=== PATIENT | female | born 1955 | race Caucasian/White ===

== ENCOUNTER → 2018-07-05 10:02 | Outpatient (CLI) | payer OTHER, SELFPAY | PROVIDERS: Visit Provider Obstetrics & Gynecology | DX: Z12.31 Encounter for screening mammogram for malignant neoplasm of breast (principal) | CPT/HCPCS: 77063; 77067 ==

== ENCOUNTER 2018-10-22 20:42 | Emergency (ER) | payer OTHER, SELFPAY ==
[2018-10-22 20:43] VITALS: BP 158/110; PULSE 87; RESP 18; TEMP 35.8; O2SAT 97; BMI 21.9
--- NOTE | 2018-10-22 20:45 | EKG12_ITS ---
Test Reason : CP Blood Pressure : / mmHG Vent. Rate : 079 BPM Atrial Rate : 079 BPM P-R Int : 188 ms QRS Dur : 098 ms QT Int : 402 ms P-R-T Axes : 077 086 077 degrees QTc Int : 460 ms Normal sinus rhythm Normal ECG Confirmed by AGNES ESPINOZA, FARHAN ([id number]), content editor FESTUS OVALLE ([id number]) on 10/24/2018 9:49:17 AM Referred By: ANNIE Confirmed By:FARHAN ALARCON MD
--- NOTE | 2018-10-22 21:10 | RAD_ITS ---
STUDY: X-RAY CHEST REASON FOR EXAM: Female, 62 years old. Chest pain TECHNIQUE: Single AP portable view of the chest. COMPARISON: None. FINDINGS: There are monitoring devices. The lungs are hyperexpanded. No focal infiltrate. There is no demonstrated pleural abnormality. There is mild cardiac enlargement. Normal mediastinum and jaime. Normal visualized pulmonary arteries. Normal visualized aortic arch and descending thoracic aorta. Mild scoliotic curvature of the spine. Normal visualized ribs, clavicles, and shoulders. There is no demonstrated abnormality of the visualized soft tissue structures of the upper abdomen. RAD/Chest 1 View (Portable) IMPRESSION: Degenerative changes, as described above. No demonstrated acute cardiopulmonary process. Electronically Signed: Bright Kenney MD at 22:12 EST , Service support ,
[2018-10-22 21:13] LABS: Absolute Lymphocyte Count 1.61 X10^3/ul (0.83-4.51); Absolute Neutrophil Count 3.7 X10^3/uL (2.0-7.7); Basophil# 0.03 X10^3/uL; Basophil% 0.5 % (0-1); Eosinophil# 0.08 X10^3/uL; Eosinophils% 1.4 % (0-5); Hematocrit 44.3 % (37-47); Hemoglobin 13.8 g/dl (12.0-15.0); Lymphocyte # 1.61 X10^3/ul (4.0); Lymphocyte % 28.3 % (19-41); Mean Corp Hgb Conc 31.2 g/gl (32-36); Mean Corpuscular Hgb 29.6 pg (27.0-32.0); Mean Corpuscular Volume 95.1 fL (81-99); Monocyte% 5.3 % (0-10); Neutrophil # 3.66 X10^3/uL (2.7-7.7); Neutrophil % 64.3 % (47-70); Platelet Count 270 K/mm3 (150-450); RBC Distribution Width SD 48.3 fl (35.1-43.9); Red Blood Count 4.66 M/mm3 (4.2-5.4); White Blood Count 5.7 K/mm3 (4.4-11.0)
[2018-10-22 21:14] LABS: POSITIVE COUNT NO; POSITIVE DIFFERENTIAL NO; POSITIVE MORPHOLOGY NO
[2018-10-22 21:19] LABS: Prothrombin Time (Protime)PT. 13.1 SECONDS (11.7-14.9)
[2018-10-22 21:20] VITALS: BP 152/92; PULSE 77; RESP 14; O2SAT 98
[2018-10-22 21:27] LABS: Anion Gap 8 (5-15); BUN 16 mg/dL (7-18); Calcium,Total 9.2 mg/dL (8.5-10.1); Chloride 106 mmol/L (98-107); Creatinine, Serum 0.84 mg/dL (0.55-1.02); EST Glomerular Filtration Rate 73 mL/min (>60); Est Glom Filt Rate - Afr Amer 88 mL/min (>60); Estimated Creatinine Clearance 65.01 ml/min; Glucose 114 mg/dL (74-106); Sodium Level 144 mmol/L (136-145)
[2018-10-22 22:26] VITALS: BP 140/93; PULSE 78; RESP 13; O2SAT 96
--- NOTE | 2018-10-22 22:46 | ED.DCSUM_ITS ---
- ER Visit Summary Date of Service: 10/22/18 Chief Complaint: Chest pain. History of Present Illness: The patient is a 62 F with no primary care physician. She reports that she has chest pain that began approximately 8-1/2 hours ago while she was undergoing light activity. She reports is a constant waxing and waning pain. She describes it as a burning, pressure. 4-10 at worst and 2 out of 10 currently. Is worsened by nothing including exertion, movement, breathing, or eating. Is also relieved by nothing. She reports is been nauseated and belching and had indigestion. She denies any vomiting, diaphoresis, shortness of breath. There is no radiation of the pain. Physical Examination: Vitals: Stable. Afebrile. General: Well-nourished and well-developed. Head: Normocephalic atraumatic. Neck: Supple, no lymphadenopathy. No JVD. Nontender. Cardiovascular: Regular rate and rhythm. No murmurs. Respiratory: No respiratory distress. Clear to auscultation bilaterally. Abdominal: Soft, nontender, nondistended, normal bowel sounds. No guarding, rebound, or peritoneal signs. Back: Nontender. Extremities: Nontender, no edema. Skin: Normal color, no rash. Neurologic: Alert and oriented ?3. Cranial nerves II through XII are intact. Normal strength and sensation. Psych: Normal affect. Test Results: EKG is sinus at [address] changes. There is no old EKG for comparison. Troponin is negative. INR is 1.0. Chem-7 is more for glucose 114. CBC is normal. Chest x-ray is normal. Emergency Department Course and Treatment: Patient is resting comfortably. I discussed that the possibility that this that could still be cardiac in etiology. Although it is less likely given 8 hours of constant pain with no EKG changes or change in her enzymes. Patient would like to go home. Treatment Plan: Patient be discharged instructions from Dr. Alcantara as soon as possible. Return to the emergency department for any worsening symptoms. Disposition: To home in improved and stable condition. Impression: 1. Atypical chest pain. 2. ROMAN score of 0. This note was generated with [employer] software. It may contain incorrect words, spelling, and punctuation that were not noted in review of the chart prior to signing ED Disposition - Plan for ED Patient: Disposition: Home or Assisted Living Chief Complaint: Chest Pain Instructions: ED Chest Pain Atypical Unkn Cause Prescriptions: Ranitidine [Zantac] 300 mg PO DAILY #30 tablet Referrals: Kelsey Alcantara MD [STAFF PHYSICIAN] - As soon as possible
[2018-10-22 22:48] VITALS: BP 135/94; PULSE 80; RESP 14; O2SAT 98
[2018-10-22] MEDS: Famotidine 20 MG Tablet 40 MG PO (23:22)
[2018-10-22] MEDS: Mag Hydrox/Al Hydrox/Simeth 30 ML UDC PO (23:22)
[2018-10-22 23:23] VITALS: BP 139/92; PULSE 78; RESP 12; O2SAT 96
--- OUTSIDE RECORDS SUMMARY | 2018-12-08 22:43 | XMS RPT_ITS ---
:1955 Author Organization OHIP Care Team Providers Name Role Phone GUZMAN ALCANTARA Attending Unavailable Primay Care Physicia, No Primary Care Unavailable El Zuniga Attending Unavailable Kriss, Lucila Attending Unavailable Lucila Monterroso Attending Unavailable Lucila Monterroso Referring Unavailable Primay Care Physicia, No Primary Care Unavailable PROBLEMS PROBLEMS DATE TYPE CONDITION / CODE ATTENDING STATUS SOURCE 10/31/2018 Active Unknown / GUZMAN ALCANTARA Active [facility] UNK(Unknown) Main [facility] Repository PROCEDURES PROCEDURES No Procedure Records FoundRESULTS RESULTS PROGRESS Observed: 10/31/2018 Status: COMPLETED Source: [place] 4:08 PM [facility] REPOSITORY HNO ID: [id number] Author: Guzman Alcantara Service: (none) Author Type: Physician Type: Progress Notes Filed: 11/23/2018 6:09 PM Note Text: Patient presents with: ED Follow-up SUBJECTIVE: Didier Delcid is a 62 year old year old lady here today for ER follow up appointment for review of medical conditions. Does not have a PCP. Was seen by SHOE MAKER at [facility] and FP in 2010 (Dr. Segal). Still follows with Dr. Monterroso. Lipids on file--excellent with HDL 80 Stays active. Noted stressors. Dtr this year in [place]. 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 Cholecalciferol, Vitamin D3, (VITAMIN D-3) 2,000 unit cap Take by mouth once daily. conjugated estrogens (PREMARIN) vaginal cream Apply fingertip amount 2-3 x weekly vaginally GLUCOSAMINE/CHONDROITIN SULF A (GLUCOSAMINE-CHONDROITIN ORAL) Take by mouth. MULTIVITAMIN TAB Take one(1) tablet daily. No current facility-administered medications for this visit. FAMILY HISTORY Problem Relation Age of Onset - Osteoporosis Mother - Arthritis Mother - Heart Mother - other (Lung Condition) Mother - other (Liver Cirrhosis) Mother 88 Non alcohol related - Heart Father TX - Hypertension Father - Lipids Father High Cholesterol - Alzheimer's Disease Maternal Grandmother - Heart Maternal Grandmother - Heart Maternal Grandfather TX, massive - Hypertension Paternal Grandmother - Stroke Paternal Grandmother 41 - Cancer Paternal Grandfather Leukemia - Cancer Brother bladder Ca Social History Marital status: Spouse name: Jesus Years of education: 12+ Number of children: 2 Occupational History 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 Patient is alert, oriented times 3, no apparent distress, affect is bright, reactive. Last 5 Encounter BP Readings: Date: BP: 10/31/2018 136/90 06/01/2017 122/78 02/26/2017 126/74 04/28/2016 124/80 03/22/2016 122/80 Last 5 Encounter Wt Readings: Date: Wt: 10/31/2018 60.3 kg (133 lb) 06/01/2017 58.1 kg (128 lb) 02/26/2017 59 kg (130 lb) 04/28/2016 58.5 kg (129 lb) 02/01/2016 59.9 kg (132 lb) PHYSICAL EXAMINATION: Blood pressure 136/90, pulse 100, resp. rate 20, weight 60.3 kg (133 lb), last menstrual period 07/08/2006. General appearance: well appearing, in no acute distress, well-hydrated, well nourished Skin: Skin color, texture, turgor normal. No significant rashes or lesions. Head: Normal Eyes: Anicteric sclera. Pupils are equally round and reactive to light. Extraocular movements are intact. Ears: External ears normal. Canals clear. TM's unremarkable. Nose/Sinuses: negative Oropharynx: Lips, mucosa, and tongue normal. Teeth and gums normal. Oropharynx normal. Neck: Neck supple, no adenopathy; thyroid symmetric, normal size, no bruits. Lungs: Lungs clear to auscultation Chest; pectus excavatum Heart: negative. RRR without murmur, gallop, or rubs. No ectopy. Abdomen: Abdomen soft, non-tender. Bowel sounds normal. No masses, organomegaly Extremities: Extremities normal. No deformities, edema, or skin discoloration. Good capillary refill. Musculoskeletal: grossly normal--noted lipomatous lumps on right lower thigh anteriorly Peripheral pulses: Normal Neuro: Gait normal. Reflexes normal and symmetric. Sensation grossly intact. No gross focal neurological deficits. ASSESSMENT AND PLAN: Encounter Diagnosis ICD-10-CM 1. Atypical chest pain R07.89 Patient here for ER follow up (and wants to establish with me as her PCP). Episode of probably GERD exacerbated by NSAIDs at night without food. Resolved. Hold off on Zantac since resolved without recurrence. Patient wants to follow up with me as her PCP. Plan to see yearly and as needed. Above issues addressed with patient. Patient involved in shared decision making for management of medical issues. History and medications reviewed. Epic updated as needed Refills taken care of and meds adjusted as indicated after reviewed history, exam and labs. Health Maintenance reviewed. Updated record and/or ordered tests as recorded. The majority of the visit was spent counseling and/or coordinating care for the patient. Hgko-de-tcbj time was at least 45 minutes. Guzman Alcantara MD CNOV Observed: 10/31/2018 Status: COMPLETED Source: [place] 3:40 PM [facility] REPOSITORY Office Visit (INTMWS) DIDIER DELCID ([id number]) 1955 F Date Time Provider Department 10/31/18 3:40 PM GUZMAN ALCANTARA INTCHIKA During your visit today, we recorded the following information about you: Pulse Respiration Blood pressure Weight 100/minute 20/minute 130/82 60.3 kg Guzman Alcantara MD 11/23/2018 6:09 PM Signed Patient presents with: ED Follow-up SUBJECTIVE: Didier Delcid is a 62 year old year old lady here today for ER follow up appointment for review of medical conditions. Does not have a PCP. Was seen by SHOE MAKER at [facility] FP in 2010 (Dr. Segal). Still follows with Dr. Monterroso. Lipids on file--excellent with HDL 80 Stays active. Noted stressors. Dtr this year in [place]. Staying active--rides horses PAST MEDICAL HISTORY Diagnosis Date - Internal hemorrhoids without mention of complication - Osteopenia Current Outpatient Prescriptions: Ca-D3-mag sg-unei-xaa-ashanti-bor (CALCIUM 600+D3 PLUS) 600 mg calcium- 800 unit-50 mg tab Take by mouth. Cholecalciferol, Vitamin D3, (VITAMIN D-3) 2,000 unit cap Take by mouth once daily. conjugated estrogens (PREMARIN) vaginal cream Apply fingertip amount 2-3 x weekly vaginally GLUCOSAMINE/CHONDROITIN SULF A (GLUCOSAMINE-CHONDROITIN ORAL) Take by mouth. MULTIVITAMIN TAB Take one(1) tablet daily. No current facility-administered medications for this visit. FAMILY HISTORY Problem Relation Age of Onset - Osteoporosis Mother - Arthritis Mother - Heart Mother - other (Lung Condition) Mother - other (Liver Cirrhosis) Mother 88 Non alcohol related - Heart Father [place] - Hypertension Father - Lipids Father High Cholesterol - Alzheimer's Disease Maternal Grandmother - Heart Maternal Grandmother - Heart Maternal Grandfather [place], massive - Hypertension Paternal Grandmother - Stroke Paternal Grandmother 41 - Cancer Paternal Grandfather Leukemia - Cancer Brother bladder Ca Social History Marital status: Spouse name: Jesus Years of education: 12+ Number of children: 2 Occupational History 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 Patient is alert, oriented times 3, no apparent distress, affect is bright, reactive. Last 5 Encounter BP Readings: Date: BP: 10/31/2018 136/90 06/01/2017 122/78 02/26/2017 126/74 04/28/2016 124/80 03/22/2016 122/80 Last 5 Encounter Wt Readings: Date: Wt: 10/31/2018 60.3 kg (133 lb) 06/01/2017 58.1 kg (128 lb) 02/26/2017 59 kg (130 lb) 04/28/2016 58.5 kg (129 lb) 02/01/2016 59.9 kg (132 lb) PHYSICAL EXAMINATION: Blood pressure 136/90, pulse 100, resp. rate 20, weight 60.3 kg (133 lb), last menstrual period 07/08/2006. General appearance: well appearing, in no acute distress, well-hydrated, well nourished Skin: Skin color, texture, turgor normal. No significant rashes or lesions. Head: Normal Eyes: Anicteric sclera. Pupils are equally round and reactive to light. Extraocular movements are intact. Ears: External ears normal. Canals clear. TM's unremarkable. Nose/Sinuses: negative Oropharynx: Lips, mucosa, and tongue normal. Teeth and gums normal. Oropharynx normal. Neck: Neck supple, no adenopathy; thyroid symmetric, normal size, no bruits. Lungs: Lungs clear to auscultation Chest; pectus excavatum Heart: negative. RRR without murmur, gallop, or rubs. No ectopy. Abdomen: Abdomen soft, non-tender. Bowel sounds normal. No masses, organomegaly Extremities: Extremities normal. No deformities, edema, or skin discoloration. Good capillary refill. Musculoskeletal: grossly normal--noted lipomatous lumps on right lower thigh anteriorly Peripheral pulses: Normal Neuro: Gait normal. Reflexes normal and symmetric. Sensation grossly intact. No gross focal neurological deficits. ASSESSMENT AND PLAN: Encounter Diagnosis ICD-10-CM 1. Atypical chest pain R07.89 Patient here for ER follow up (and wants to establish with me as her PCP). Episode of probably GERD exacerbated by NSAIDs at night without food. Resolved. Hold off on Zantac since resolved without recurrence. Patient wants to follow up with me as her PCP. Plan to see yearly and as needed. Above issues addressed with patient. Patient involved in shared decision making for management of medical issues. History and medications reviewed. Epic updated as needed Refills taken care of and meds adjusted as indicated after reviewed history, exam and labs. Health Maintenance reviewed. Updated record and/or ordered tests as recorded. The majority of the visit was spent counseling and/or coordinating care for the patient. Jtpx-yk-ipvz time was at least 45 minutes. Guzman Alcantara MD Referring Provider: SELF [[id number]] Allergies As of Date: 10/31/2018 Noted Allergy Reaction PENICILLINS 01/15/2006 Comments: AND DERIVATIVES Date Reviewed: 10/31/2018 Reviewed by: Michelle Mari LPN - Fully Assessed Reason for Visit: ED Follow-up [821] Primary Visit Diagnosis:Atypical chest pain [R07.89] Prescriptions as of 10/31/2018 Sig: CHOLECALCIFEROL (VITAMIN D3) * Take by mouth once daily. GLUCOSAMINE-CHONDROITIN ORAL Take by mouth. CONJUGATED ESTROGENS 0.625 MG* Apply fingertip amount 2-3 x * CA 600 MG-D3 800 UNIT-MAG OXI* Take by mouth. * MULTIVITAMIN TABLET Take one(1) tablet daily. Problem List As Of Date 10/31/2018 Noted Resolved Internal hemorrhoids [K64.8] 10/31/2018 Malaise and fatigue [R53.81, R53.83] INVALID FOR* More... Osteopenia of multiple sites [M85.89] INVALID FOR* Disposition: Return in about 1 year (around 10/31/2019) for Yearly exam and follow up (40 min). Follow-up and Disposition History Recorded Encounter Status:Closed by GUZMAN ALCANTARA MD on 11/23/18 12 LEAD ELECTROCARDIOGRAM Observed: 10/24/2018 Status: F Source: [place] 9:49 AM [facility] REPOSITORY [facility] Cardiovascular Services [address] [place] [address] 12 Lead EKG 10/22/182053 MR#: [id number] Acct: [id number] Name: DIDIER DELCID Rep #: [id number] : 1955 62 From: Shiv Hazel MD Attending Dr: Status: DEP ER Ordering Dr: Provider,Sergey P. Date: 10/22/18 Location: ED Sex: F C Admitted: Test Reason : CP Blood Pressure : / mmHG Vent. Rate : 079 BPM Atrial Rate : 079 BPM P-R Int : 188 ms QRS Dur : 098 ms QT Int : 402 ms P-R-T Axes : 077 086 077 degrees QTc Int : 460 ms Normal sinus rhythm Normal ECG Confirmed by SHIV HAZEL MD ([id number]), editor producer FESTUS OVALLE ([id number]) on 10/24/2018 9:49:17 AM Referred By: ANNIE Confirmed By:SHIV HAZEL MD 10/24/18 0949 Date Shiv Hazel MD CC: No Primary Care Physician; ED PHYSICIAN PROVIDER; El Zuniga MD Signed EMERGENCY DEPARTMENT Observed: 10/23/2018 Status: F Source: [place] SUMMARY 1:04 AM [facility] REPOSITORY [facility] Medical Records Department [address] [place] [address] Emergency Department Summary 10/22/18 2246 MR#: [id number] Acct: [id number] Name: MENDEL DELCIDITA Quynh Rep #: [id number] : 1955 62 From: El Zuniga MD PCP: Care Physician, No Primary Status: DEP ER - ER Visit Summary Date of Service: 10/22/18 Chief Complaint: Chest pain. History of Present Illness: The patient is a 62 F with no primary care physician. She reports that she has chest pain that began approximately 8-1/2 hours ago while she was undergoing light activity. She reports is a constant waxing and waning pain. She describes it as a burning, pressure. 4-10 at worst and 2 out of 10 currently. Is worsened by nothing including exertion, movement, breathing, or eating. Is also relieved by nothing. She reports is been nauseated and belching and had indigestion. She denies any vomiting, diaphoresis, shortness of breath. There is no radiation of the pain. Physical Examination: Vitals: Stable. Afebrile. General: Well-nourished and well-developed. Head: Normocephalic atraumatic. Neck: Supple, no lymphadenopathy. No JVD. Nontender. Cardiovascular: Regular rate and rhythm. No murmurs. Respiratory: No respiratory distress. Clear to auscultation bilaterally. Abdominal: Soft, nontender, nondistended, normal bowel sounds. No guarding, rebound, or peritoneal signs. Back: Nontender. Extremities: Nontender, no edema. Skin: Normal color, no rash. Neurologic: Alert and oriented 3. Cranial nerves II through XII are intact. Normal strength and sensation. Psych: Normal affect. Test Results: EKG is sinus at [address] changes. There is no old EKG for comparison. Troponin is negative. INR is 1.0. Chem-7 is more for glucose 114. CBC is normal. Chest x-ray is normal. Emergency Department Course and Treatment: Patient is resting comfortably. I discussed that the possibility that this that could still be cardiac in etiology. Although it is less likely given 8 hours of constant pain with no EKG changes or change in her enzymes. Patient would like to go home. Treatment Plan: Patient be discharged instructions from Dr. Alcantara as soon as possible. Return to the emergency department for any worsening symptoms. Disposition: To home in improved and stable condition. Impression: 1. Atypical chest pain. 2. ROMAN score of 0. This note was generated with Muzic[employer] dictation software. It may contain incorrect words, spelling, and punctuation that were not noted in review of the chart prior to signing ED Disposition - Plan for ED Patient: Disposition: Home or Assisted Living Chief Complaint: Chest Pain Instructions: ED Chest Pain Atypical Unkn Cause Prescriptions: Ranitidine [Zantac] 300 mg PO DAILY #30 tablet Referrals: Guzman Alcantara MD [STAFF PHYSICIAN] - As soon as possible What to do if you have Problems For any increased pain, shortness of breath, bleeding, nausea or vomiting, chest pain, or any unexpected problems, contact your Primary Care Provider. Call [facility] ([phone]) or report to the closest Emergency Room. Call 911 if necessary. 10/23/18 0104 <Electronically signed by El Zuniga MD> Date El Zuniga MD Cosigner Signature (If Indicated): Date CC: No Primary Care Physician CBC W/DIFF, AUTOMATED Collected: 10/22/2018 Status: F Source: [place] 8:50 PM [facility] REPOSITORY TYPE CODE TESTS RESULT OUT OF RANGE REFERENCE UNITS LAB L100.1000 4.4-11.0 K/mm3 Normal WBC 5.7 LAB L100.1200 4.2-5.4 M/mm3 Normal RBC 4.66 LAB L100.1300 12.0-15.0 g/dl Normal HGB 13.8 LAB L100.1400 37-47 % Normal HCT 44.3 LAB L100.1500 81-99 fL Normal MCV 95.1 LAB L100.1600 27.0-32.0 pg Normal MCH 29.6 LAB L100.1700 32-36 g/gl Low MCHC 31.2 LAB L100.1810 11.6-14.6 % Normal RDW CV 14.0 LAB L100.1820 35.1-43.9 fl High RDW SD 48.3 LAB L100.1900 150-450 K/mm3 Normal PLT 270 LAB L100.2000 6.2-12.0 fl Normal MPV 11.0 LAB L100.2100 47-70 % Normal NEUT% 64.3 LAB L100.2200 19-41 % Normal LY% 28.3 LAB L100.2300 0-10 % Normal MONO% 5.3 LAB L100.2400 0-5 % Normal EO% 1.4 LAB L100.2500 0-1 % Normal BASO% 0.5 LAB L100.2550 0.0-0.9 % Normal IM GRAN % 0.200 Result Comment: IG% - Immature Granulocytes (promyelocytes, myelocytes and metamyelocytes) > 1% indicates that a LEFT SHIFT is Present. LAB L100.2620 2.0-7.7 X10 3/uL Normal Absolute Neut 3.7 LAB L100.2720 0.83-4.51 X10 3/ul Normal Absolute Lymph 1.61 Performed By: #### L100.0100 #### [facility] [address] [place], [address] PROTHROMBIN TIME W/INR Collected: 10/22/2018 Status: F Source: [place] 8:50 PM [facility] REPOSITORY TYPE CODE TESTS RESULT OUT OF RANGE REFERENCE UNITS LAB L300.4150 11.7-14.9 SECONDS Normal PROTIME 13.1 LAB L300.4200 Normal INR 1.0 Performed By: #### L300.3900 #### [facility] [address] [place], [address] BASIC METABOLIC Collected: 10/22/2018 Status: F Source: [place] PROFILE (BMP) 8:50 PM [facility] REPOSITORY TYPE CODE TESTS RESULT OUT OF RANGE REFERENCE UNITS LAB L501.0100 74-106 mg/dL High GLU 114 Result Comment: Fasting Glucose result from 100 to 125 mg/dL suggests IMPAIRED HOMEOSTASIS per A.D.A. criteria. Please note revised GLUCOSE reference range effective 2017. LAB L501.1000 7-18 mg/dL Normal BUN 16 LAB L501.1100 0.55-1.02 mg/dL Normal CREAT,SERUM 0.84 Result Comment: The validity of the calculated GFR AND GFRAA in patients over 70 years has not been determined. Clinical correlation is essential. LAB L501.1110 >60 mL/min Normal EST GFR 73 Result Comment: Non- GFR Calc LAB L501.1115 >60 mL/min Normal EST GFR - AA 88 Result Comment: GFR Calc LAB L501.1255 ml/min Normal Estimated CRCL 65.01 LAB L501.1300 10-20 RATIO Normal BUN/CRE 19.0 LAB L501.2200 8.5-10 mg/dL Normal .1 CA 9.2 LAB L501.5300 136-14 mmol/L Normal 5 NA 144 LAB L501.5600 3.5-5. mmol/L Normal 1 K 4.0 LAB L501.5900 98-107 mmol/L Normal CL 106 LAB L501.6100 21.0-3 mmol/L Normal 2.0 CO2 30.0 LAB L501.6200 5-15 Normal GAP 8 Performed By: #### L500.2500, L501.4010 #### [facility] [address] [place], [address] TROPONIN-I Collected: 10/22/2018 Status: F Source: [place] 8:50 PM [facility] REPOSITORY TYPE CODE TESTS RESULT OUT OF RANGE REFERENCE UNITS LAB L501.4010 <0.045 ng/mL Normal < 0.015 TROPONIN-I Result Comment: TROPONIN-I EXPECTED VALUES <0.045 Negative 0.045 - 0.590 Consistent with Cardiac Damage > OR = 0.600 Critical Value Not every elevated troponin is indicative of TX. These values should be used with clinical judgement in examining the patient's clinical picture for diagnosis. To establish a diagnosis of TX versus myocardial injury, there must be a demonstrated rise and/or fall in the troponin values, in addition to ischemic symptoms, EKG changes, new regional wall motion abnormality, and/or angiographical evidence. PLEASE NOTE: REFERENCE RANGES EDITED 18 Performed By: #### L500.2500, L501.4010 #### [facility] [address] [place], [address] CHEST 1 VIEW Observed: 10/22/2018 Status: F Source: [place] (PORTABLE) 8:46 PM [facility] REPOSITORY [facility] Imaging Services [address] [place] [address] Chest 1 View (Portable) MR#: [id number] Acct: [id number] Name: DIDIER DELCID Rep #: [id number] : 1955 F 62 From: Bright Kenney MD PCP: Care Physician, No Primary Status: REG ER Study: Chest 1 View (Portable) Date of Exam: 10/22/18 Exam# [id number] Ordering Dr: El Zuniga MD STUDY: X-RAY CHEST REASON FOR EXAM: Female, 62 years old. Chest pain TECHNIQUE: Single AP portable view of the chest. COMPARISON: None. FINDINGS: There are monitoring devices. The lungs are hyperexpanded. No focal infiltrate. There is no demonstrated pleural abnormality. There is mild cardiac enlargement. Normal mediastinum and jaime. Normal visualized pulmonary arteries. Normal visualized aortic arch and descending thoracic aorta. Mild scoliotic curvature of the spine. Normal visualized ribs, clavicles, and shoulders. There is no demonstrated abnormality of the visualized soft tissue structures of the upper abdomen. RAD/Chest 1 View (Portable) IMPRESSION: Degenerative changes, as described above. No demonstrated acute cardiopulmonary process. Electronically Signed: Bright Kenney MD at 22:12 EST , Service support , CC: No Primary Care Physician; El Zuniga MD Over Short And Damage Clerk: Signed SCREENING MAMM (CAD), Observed: 07/05/2018 Status: F Source: [facility] 10:23 AM [facility] REPOSITORY [facility] Imaging Services [address] [place] [address] SCREENING MAMM (CAD), BIL MR#: [id number] Acct: [id number] Name: DIDIER DELCID Rep #: [id number] : 1955 F 62 From: Surinder Mercedes MD PCP: Care Physician, No Primary Status: REG CLI Study: SCREENING MAMM (CAD), BILAT Date of Exam: 07/05/18 Exam# [id number] Ordering Dr: Lucila Monterroso MD MAMMOGRAPHY - BILATERAL SCREENING REASON FOR EXAM: Female, 62 years old. Routine annual screening examination. PERTINENT HISTORY: Non-contributory. TECHNIQUE: Digital bilateral breast shauna (3D mammographic acquisition) in the CC and MLO projections. 2-D mediolateral oblique (MLO) and craniocaudad (CC) views of both breasts were obtained. CAD: Full Field Digital Mammography with Computer Added Detection was performed. COMPARISON: Comparison is made with prior examination dated March 19, 2017. FINDINGS: Breast Composition: The breasts are heterogeneously dense, which may obscure small masses. There are no dominant masses or suspicious calcifications. No other significant abnormalities are identified. There has been no significant change since the prior study. BI/SCREENING MAMM (CAD), BILAT IMPRESSION: Stable bilateral screening mammogram. Yearly follow-up mammogram recommended. (A) ASSESSMENT CATEGORY: BIRADS Category 1: Negative. A letter regarding these results will be sent to the patient by the facility within 30 days. Approximately 10% of breast cancers are not detected by mammography. A normal mammogram should not delay biopsy of a clinically suspicious abnormality. [id number] Electronically Signed: Surinder Mercedes MD at 9:24 EDT Tel [phone], Service support , CC: No Primary Care Physician; Lucila Monterroso MD Over Short And Damage Clerk: Signed ENGINEERING JOB TITLES OFFICE VISIT Observed: 03/06/2018 Status: F Source: [place] REPORT 5:49 AM [facility] [address] [place] [address] OFFICE VISIT Date of Service: 02/28/18 MR#: [id number] Acct: [id number] Name: DIDIER DELCID Quynh Rep #: [id number] : 1955 Provider: Lucila Monterroso MD Age/Sex: 62/F Location: [facility] [place] [place] Status: Signed Intake Vital Signs02/28/18 Height 5 ft 6 in 02/28/18 Weight: 131 lb 8 oz 02/28/18 Body Mass Index (BMI) 21.2 02/28/18 Blood Pressure 134/84 Intake Visit 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: 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: No Is patient in pain?: No Allergies Penicillins Allergy (Mild, Verified 02/28/18 11:37) rash Medications calcium carbonate-vitamin D3 600 mg (1,500 mg)-400 unit capsule cap PO 02/28/18 [History Confirmed 02/28/18] cholecalciferol (vitamin D3) 1,000 unit capsule 1,000 unit PO QDAY 02/28/18 [History Confirmed 02/28/18] conjugated estrogens 0.625 mg/gram vaginal cream 1 applic VAGINAL .COMPLEX #30 g 02/28/18 [Rx Confirmed 02/28/18] oyxrlflgasi-dqc-hdhvmagit-hrb 149-hyalur 500 mg-500 mg-66.7 mg tablet tab PO 02/28/18 [History Confirmed 02/28/18] multivitamin tablet 1 tab PO QDAY 02/28/18 [History Confirmed 02/28/18] Is last menstrual period known: No Post menopausal: Yes Patient : No : No PFSH Surgical History H/O: (Resolved) Family History Brother Bladder cancer Mother Uterine cancer Father Heart disease Myocardial infarction Social History Smoking Status: Never smoker alcohol intake: current details: 3 times per week (wine) substance use type: does not use caffeine: Yes what type of physical activity do you participate in: none seatbelt use: always do you feel safe at home: Yes 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 Work[employer] 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 DatName GA/WeeksOutcome Route [facility] LocaProviderFOB e ht en tn Unknown Mila- 1983 Unknown [id number] HPI Encounter for routine gynecological examination: Details: DIDIER DELCID is a 62 year old who presents for annual exam. dad going through heart issues, but stable now. 89 years old. Last PAP: 02/25 History of abnormal PAP: no Last mammogram: 03/27 History of abnormal mammogram: Colon cancer screenin- good til 2021 Other preventative health care screenings: 2016 normal ROS Const Constitutional: Reports as per HPI; denies poor appetite, fatigue, increased appetite, weight gain or weight loss Cardio Card: Denies chest pain Resp Resp: Denies dyspnea or cough GI GI: Reports as per HPI; denies bloating, abdominal pain, constipation, vomiting or nausea : Reports as per HPI and other; denies blood in urine, vaginal odor, vaginal itching, vaginal dryness, vaginal discharge, urinary urgency, urinary incontinence, urinary frequency, pelvic pain, painful urination, difficulty urinating, prolapse symptoms or nipple discharge Skin Skin/Breast: Denies breast pain, breast skin changes, nipple discharge, breast lump or changing lesions Exam Const General: cooperative, healthy appearing, comfortable, no acute distress, well developed, well groomed [facility] Head: normal to inspection, normocephalic Ears: hearing grossly normal bilaterally, external ears normal Nose: external nose normal Face and sinus: normal facial exam Neck Neck: normal visual inspection, full ROM, no lymphadenopathy Thyroid: thyroid normal Chest Chest palpation AND inspection: normal inspection of the chest Breast inspection: normal inspection of the breasts, normal inspection of the axillae Breast palpation: normal palpation of the breasts, normal palpation of the axillae, no axillary lymphadenopathy Resp Effort AND Inspection: normal respiratory effort GI Inspection: normal to inspection, non-distended Palpation: no guarding, soft, no hepatosplenomegaly General: bladder normal to palpation External Female Exam: normal external appearance, normal appearance of the urethra, no lesions Urethra: normal appearance of the urethra, normal palpation Speculum Exam - Vagina: normal appearance of the vagina, normal vaginal discharge Speculum Exam - Cervix: normal appearance of the cervix, no cervical discharge, no lesions, nontender Bimanual Exam- Vagina AND Uterus: No cervical tenderness, normal bimanual exam, uterine size normal, bladder normal to palpation, uterine mobility normal, uterine consistency normal, uterus non-tender, no cervical motion tenderness Bimanual Exam- Adnexa, other: normal adnexae, no adnexal masses, adnexae non-tender Skin General: no rashes or lesions noted Neuro General: alert, moves all extremities, no focal motor deficits Extrem General: no pedal edema, normal to inspection Psych Appearance: grossly normal Mental Status: mental status grossly normal Affect: normal affect Speech and Movement: speech and movement normal Attitude: cooperative Assessment AND Plan Problems 1. Encounter for gynecological examination without abnormal finding Z01.419 Plan Cervical cancer screening: up to date 02/25 Breast cancer screening: mamm other health maintenance examination reviewed and up to date. Encouraged maintenance of a healthy weight and active lifestyle and handout given. Calcium/vitamin D recommendations provided. Annual exam handout including recommendations for good health guidelines and basic screening information given. Problem list up to date, see problem list details for any additional plan information. Follow up in one year for annual health maintenance exam or sooner if needed. Medications New: conjugated estrogens apply fingertip amount or 1-2g VAGINAL every night x 2 weeks then 1-3 x weekly for maintenance Discontinued: Coding Level of Care Code Off vis,est,prev 40-64yrs Diagnoses Encounter for gynecological examination without abnormal finding Z01.419 Gynecological examination findings: abnormal findings ABSENT 03/06/18 0548 <Electronically signed by Lucila Monterroso MD> Date Lucila Monterroso MD Cosigner Signature: Date (if applicable) CC: ALLERGIES ALLERGIES DATE TYPE / CODE NAME / CODE REACTION SEVERITY SOURCE 10/22/2018 Drug Penicillins/[id number] Rash [place] Printer Allergy/416 0476(RXNORM) [facility] [id number]([facility] ED CT) Repository 01/15/2006 Drug PENICILLINS [facility] Class/91767 Main [address] 100[address]([facility] Repository CT) ENCOUNTERS ENCOUNTERS ADMIT/DISCHARGE ACCOUNT ADMITTING ENCOUNTER LOCATION SOURCE NUMBER CLASS 10/31/2018/11/25/19 [id number] Ambulatory [address] Repository 10/22/2018/10/22/20 [id number] Emergency [place] Printer 18 [facility] ing:ED Repository 07/05/2018 [id number] [facility] 02/28/2018/02/29/20 [id number] Ambulatory BMSBuilding:B [place] [address] Repository PAYERS PAYERS ENCOUNTER GUARANTOR PAYER SUBSCRIBER SOURCE 10/22/2018 JESUS A Primary JESUS A [place] [id number] S Insurance:AETNAPolicy MEIERDOB: Community [place] Number: [id number] [id number] [place]ository [place] [address]Psk: Date:[id number] [address] () [phone]: 10/22/2018 Secondary NOT GIVENUNK [place] Insurance:SELF PAY [facility] Number: Effective Repository Date:2018-10-22 07/05/2018 JESUS A Primary JESUS A [place] [id number] S Insurance:AETNAPolmayra DELCIDDOB: Community [place] Number: [id number], [id number] [place]ository [place] [address]Prh: Date:[id number] [address] () [phone]: 07/05/2018 Secondary NOT GIVENUNK Printer Insurance:SELF PAY [facility] Number: Effective Repository Date:2018-05-27 02/28/2018 Jesus A Primary Jesus A Printer [id number] S Insurance:AETNALauri DelcidDOB: Community [place] Number: [id number], [id number] [place]ository [place] [address]Iyn: Date:[id number] [address] () [phone]: 02/28/2018 Secondary NOT GIVENUNK Printer Insurance:SELF PAY [facility] Number: Effective Repository Date:2018-02-28
== END 2018-10-22 23:27 | disposition home or self-care (01) ==
LOC: ED 21:15
PROVIDERS: Emergency Provider Emergency Medicine
DX: R07.89 Other chest pain (principal); Z82.49 Family history of ischemic heart disease and other diseases of the circulatory system
CPT/HCPCS: 71045; 80048; 84484; 85025; 85610; 93005; 99285

== ENCOUNTER 2018-12-18 17:05 | Emergency (ER) | payer OTHER, SELFPAY ==
[2018-12-18 17:05] VITALS: BP 115/85; PULSE 103; RESP 20; TEMP 38.1; O2SAT 96; BMI 20.9
[2018-12-18 19:36] VITALS: BP 121/76; PULSE 107; RESP 20; TEMP 38.6; O2SAT 93
--- NOTE | 2018-12-18 19:50 | ED.DCSUM_ITS ---
- ER Visit Summary Date of Service: 12/18/18 Chief Complaint: Influenza symptoms History of Present Illness: The patient is a 63 F's sent from PCP office with influenza symptoms concerning for dehydration. 5 days ago chills myalgias nonproductive cough and headache. Tolerating oral fluids. No urinary symptoms. No vomiting or diarrhea. Used DayQuil Tylenol this morning. Calvin feverish did not take temperature. No history of gastric ulcers or kidney injury. No history of lung or heart issues. No comorbidities. No tobacco history. Physical Examination: General: Alert and oriented ?3, no acute distress HEENT: Normocephalic, atraumatic. Mild dry mucosa membranes Neck: supple, nontender. Cardiovascular: Regular rate 106 and rhythm, no murmurs Respiratory: Normal breath sounds, symmetric, no distress Abdomen: Soft, nontender, nondistended Extremities: Nontender, no edema, pulses intact ?4 Neuro: no focal neurological deficits. Test Results: BMP: Potassium 3.4 , creatinine 0.77, BUN 8. Emergency Department Course and Treatment: Patient presents with fever, history concerns for influenza. She is 5 days and the symptoms she does not have any comorbidities. Slightly dry on exam. Slightly tachycardic. Given IV fluids, BMP checked stable. Tylenol Zofran she is tolerated oral fluids. With her myalgias additional Toradol was given heart rate improved in the 90s. Clinically was improving. Discussed with patient influenza symptoms. Continue symptomatic treatment. Continue oral hydration. Discussed 5 days and the symptoms likely peaking at this point. No indication for testing discussed this with the patient, she is outside the window for treatment without comorbidities. Follow-up as an outpatient. Return if any worsening symptoms. All questions were answered. Treatment Plan: [] Disposition: Discharge Impression: 1. Influenza-like symptoms 2. Dehydration 3. Fever This note was generated with [employer] dictation software. It may contain incorrect words, spelling, and punctuation that were not noted in review of the chart prior to signing ED Disposition - Plan for ED Patient: Disposition: Home or Assisted Living Diagnosis: Influenza-like illness, Dehydration, Fever Instructions: Influenza Prescriptions: Ondansetron [Zofran Odt] 4 mg PO Q8H PRN PRN #10 tablet PRN Reason: Nausea Referrals: Kelsey Alcantara MD [Primary Care Provider] - 3-5 Days if not improving
--- NOTE | 2018-12-18 20:18 | ED.RN ---
SPOKE WITH DR JACKSON. NOT CONCERNED FOR SEPSIS AT THIS TIME
[2018-12-18] MEDS: Acetaminophen 500 MG Tablet 1000 MG PO (20:20)
[2018-12-18] MEDS: Ondansetron 4 MG/2 ML Vial IV (20:20)
[2018-12-18] MEDS: 0.9% Normal Saline 1,000 ML 1000 ML IV (20:20)
[2018-12-18 20:24] LABS: Anion Gap 8 (5-15); BUN 8 mg/dL (7-18); BUN/Creat Ratio 10.4 RATIO (10-20); Calcium,Total 8.6 mg/dL (8.5-10.1); Chloride 98 mmol/L (98-107); Creatinine, Serum 0.77 mg/dL (0.55-1.02); EST Glomerular Filtration Rate 80 mL/min (>60); Est Glom Filt Rate - Afr Amer 97 mL/min (>60); Estimated Creatinine Clearance 69.61 ml/min; Glucose 128 mg/dL (74-106); Potassium 3.4 mmol/L (3.5-5.1); Sodium Level 134 mmol/L (136-145)
[2018-12-18 21:03] VITALS: BP 122/76; PULSE 96; RESP 16; TEMP 37.8; O2SAT 96
[2018-12-18] MEDS: Ketorolac 30 MG/ML Syringe IV (21:42)
[2018-12-18 21:58] VITALS: BP 110/62; PULSE 90; RESP 16; TEMP 37.7; O2SAT 97
== END 2018-12-18 21:58 | disposition home or self-care (01) ==
PROVIDERS: Emergency Provider Emergency Medicine; Family Provider Internal Medicine; PCP Internal Medicine
DX: J11.1 Influenza due to unidentified influenza virus with other respiratory manifestations (principal); E86.0 Dehydration
CPT/HCPCS: 80048; 96361; 96374; 96375; 99285; J7030; A4216; J2405

== ENCOUNTER → 2019-06-23 14:25 | Outpatient (CLI) | payer OTHER, SELFPAY ==
[2019-06-23 13:44] VITALS: BMI 20.9
[2019-06-23 15:02] LABS: Thyroid Stim Hormone (TSH) 1.14 uIU/mL (0.358-3.74)
== END ==
PROVIDERS: Family Provider Internal Medicine; PCP Internal Medicine; Referring Provider Obstetrics & Gynecology; Visit Provider Obstetrics & Gynecology
DX: L65.9 Nonscarring hair loss, unspecified (principal)
CPT/HCPCS: 36415; 84439; 84443

== ENCOUNTER → 2019-08-10 12:00 | Outpatient (CLI) | payer OTHER, SELFPAY ==
[2019-06-23 13:44] VITALS: BMI 20.9
--- NOTE | 2019-08-10 12:03 | BI_ITS ---
MAMMOGRAPHY - BILATERAL SCREENING REASON FOR EXAM: Female, 63 years old. Routine annual screening examination. PERTINENT HISTORY: Non-contributory. TECHNIQUE: Digital bilateral breast mumtaz (3D mammographic acquisition) in the CC and MLO projections. 2-D mediolateral oblique (MLO) and craniocaudad (CC) views of both breasts were obtained. CAD: Full Field Digital Mammography with Computer Added Detection was performed. COMPARISON: Comparison is made with prior study dated July 05, 2018. FINDINGS: Breast Composition: The breasts are heterogeneously dense, which may obscure small masses. There are no dominant masses or suspicious calcifications. Stable benign-appearing bilateral axillary lymph nodes. No other significant abnormalities are identified. There has been no significant change since the prior study. BI/SCREEN MAMM (CAD) W/MUMTAZ BILAT IMPRESSION: Stable bilateral screening mammogram. Yearly follow-up mammogram recommended. (A) ASSESSMENT CATEGORY: BIRADS Category 2: Benign. A letter regarding these results will be sent to the patient by the facility within 30 days. Approximately 10% of breast cancers are not detected by mammography. A normal mammogram should not delay biopsy of a clinically suspicious abnormality. [id number] Electronically Signed: Surinder Mercedes, at 13:24 EDT , Service support ,
== END ==
PROVIDERS: Family Provider Internal Medicine; PCP Internal Medicine; Referring Provider Obstetrics & Gynecology; Visit Provider Obstetrics & Gynecology
DX: Z12.31 Encounter for screening mammogram for malignant neoplasm of breast (principal)
CPT/HCPCS: 77063; 77067

== ENCOUNTER 2020-01-05 11:08 | Observation (INO) | payer OTHER, SELFPAY ==
[2019-06-23 13:44] VITALS: BMI 20.9
[2020-01-05] VITALS (10 sets, daily range): BP systolic 124–155; BP diastolic 79–96; PULSE 84–97; RESP 11–18; TEMP 36.6–37; O2SAT 96–100; BMI 21.3; BMI 21.2
--- NOTE | 2020-01-05 11:30 | EKG12_ITS ---
Test Reason : CP Blood Pressure : / mmHG Vent. Rate : 073 BPM Atrial Rate : 073 BPM P-R Int : 176 ms QRS Dur : 098 ms QT Int : 398 ms P-R-T Axes : 069 036 051 degrees QTc Int : 438 ms Normal sinus rhythm Normal ECG Confirmed by VANCE ROUSE ([id number]), acquisition editor KYLE OWENS ([id number]) on 01/06/2020 3:02:02 PM Referred By: JARED/MILAD Confirmed By:VANCE ROUSE
--- NOTE | 2020-01-05 11:32 | CT_ITS ---
STUDY: CTA HEAD AND NECK WITH CONTRAST REASON FOR EXAM: Female, 64 years old. RT ARM PAIN, RT ARM PARATHESIA, DIZZINESS RADIATION DOSAGE (If Supplied By Facility): CTDIvol = ( 27.14 ) mGy, DLP = ( 1352.7 ) mGycm TECHNIQUE: CT angiography was performed with a multi-detector CT scanner. Data acquisition was obtained from the skull base through the vertex following intravenous administration of 100ML ISOVUE 370. MIP images were reconstructed from the axial data set. Post-processing of the angiographic images was performed, with multiplanar reformation and 3D reconstruction. Individualized dose optimization techniques were used for this CT. COMPARISON: No relevant priors. TECHNIQUE: A CTA of the Head and Neck was performed first without than with IV contrast, in the axial plane. Multiplanar CT reconstruction images were performed and later 3D volumetric reconstruction images were obtained This exam was performed according to our departmental dose-optimization program, which includes automated exposure control, adjustment of the mA and/or kV according to patient size and/or use of iterative reconstruction technique. FINDINGS: The pre and post contrast CT images of the head were obtained and reviewed. The charles, medulla, and cerebellum appear to be normal. The cerebral hemispheres and the ventricles and cerebral sulci are normal. The basal ganglia are normal. No enhancing masses or lesions are seen. Bone scanning windows were reviewed and show the inner and outer tables of the skull to be intact. The frontal, ethmoid, maxillary, and sphenoid sinuses are normal. Post contrast CTA images were then reviewed. Posterior Cerebral Circulation: The V4 segments of the vertebral arteries are normal bilaterally. The basilar artery is normal. The [right and left] anterior inferior cerebellar artery is normal. The anterior superior cerebellar arteries are seen at their origins and are normal. The P1, P2, and P3 segments of the [right and left] posterior cerebral arteries are normal. Anterior Cerebral Circulation: The cavernous and supraclinoid carotid arteries are normal. The A1 segments of the [right and left] anterior cerebral arteries are normal. The anterior communicating artery are normal. The M1 segments of the [right and left] cerebral arteries are normal. The bifurcations of the middle cerebral arteries are normal. Cerebral Venous Circulation: The superior sagital sinus is normal. The inferior sagittal sinus is normal. The internal cerebral veins, great vein of [place]yn, straight sinus, and torcula are normal. The transverse sinuses and sigmoid sinuses are normal. The CT scan of the neck, and CTA of the carotid and vertebral arteries was performed. The base of the skull, the mandible and the lung apices are normal. The cervical vertebra are normal and are in good position and alignment. Cervical Soft Tissues. The parotid space, buccal space, reed or wind instrument tuner space, retropharnygeal space, parapharyngeal space, parapharyngeal mucosal space, and visceral space are normal. The carotid space is normal. The thyroid is normal. The thoracic inlet is normal. The supraclavicular space is normal. The nasopharynx and torus tuberous, the oropharynx and epiglottis, and the hypopharynx and aryepiglottic folds are normal. The true vocal cords and false cords are normal. The cervical trachea is normal. CTA images of the neck were reviewed and show a normal branch pattern of the aortic arch with a normal branch pattern. The right inominate artery is normal. The right subclavian artery is normal. The left common carotid artery is normal at its origin. The left subclavian artery is normal at its origin. On the right side, the right vertebral artery originates from the right subclavian artery. The V1, V2, V3, and V4 segments of the right vertebral artery are normal. The right common carotid artery is smooth. The right carotid bifurcation is normal. The right external carotid artery is normal. The origin of the right internal carotid artery, and the cervical and petrous portions of the right internal carotid artery are normal. On the left side, the left vertebral artery originates from the left subclavian artery. The V1,V2, V3, and V4 segments of the left vertebral artery are normal. The left common carotid artery is smooth. The left carotid bifurcation is normal. The left external carotid artery is normal. The origins of the left internal carotid artery, and the cervical and petrous portions of the left internal carotid artery are normal. CT/CTA Head AND Neck W/ Contrast IMPRESSION: Normal CTA of the Head Normal CTA of the Cervical Carotid and Vertebral Arteries. No stenosis identified. Electronically Signed: Micah Rocha, at 13:58 EST Tel , Service support ,
[2020-01-05 11:58] LABS: Bacteria 0 SEEN /hpf (None Seen); Mucous, Urine 0 SEEN /hpf (<or=2+); Red Blood Cells-Urine 0 SEEN /hpf (0-5); White Blood Cells 0 SEEN /hpf (0-5)
[2020-01-05 12:00] LABS: Color, Urine Yellow (Yellow); Glucose, Dipstick Normal (Normal); Ketone-Dipstick Negative (Negative); Leukocyte Esterase-Dipstick Negative /ul (Negative); Nitrite-Dipstick Negative (Negative); Occult Blood-Urine Negative /ul (Negative); Protein-Dipstick Negative (Negative); Urine Bilirubin Dipstick Negative (Negative); Urine Clarity Clear (Clear); Urine Urobilinogen Normal (Normal)
--- NOTE | 2020-01-05 12:00 | RAD_ITS ---
EXAM DESCRIPTION: PORTABLE AP CHEST CLINICAL HISTORY: 64 years Female, weakness, dizziness weakness, dizziness COMPARISON: Previous chest obtained on 10/22/2018 FINDINGS: There is mild dextroscoliosis noted in the mid thoracic spine and levoscoliosis of the lower thoracic and upper lumbar spine. The rest of the thorax is intact.The heart and mediastinum appear to be within normal limits. The lungs appear to be well areated without evidence of pneumonic consolidation or pleural effusion. RAD/Chest 1 View (Portable) IMPRESSION: Normal portable chest. Electronically Signed: Micah Rocha, at 12:21 EST Tel , Service support ,
[2020-01-05] MEDS: Ondansetron 4 MG/2 ML Vial IV (12:03)
[2020-01-05] MEDS: 0.9% Normal Saline 1,000 ML 1000 ML IV (12:04)
[2020-01-05 12:07] LABS: Squamous Epithelial Cells - UA 0-5 SEEN /hpf (5-10)
[2020-01-05 12:11] LABS: Absolute Lymphocyte Count 1.17 X10^3/uL (0.83-4.51); Absolute Neutrophil Count 3.5 X10^3/uL (2.0-7.7); Basophil# 0.03 X10^3/uL; Basophil% 0.6 % (0-1); Eosinophil# 0.05 X10^3/uL; Hematocrit 46.7 % (37-47); Hemoglobin 14.7 g/dL (12.0-15.0); Lymphocyte # 1.17 X10^3/ul (4.0); Mean Corp Hgb Conc 31.5 g/dL (32-36); Mean Corpuscular Hgb 29.7 pg (27.0-32.0); Mean Corpuscular Volume 94.3 fL (81-99); Mean Platelet Vol. 11.1 fl (6.2-12.0); Monocyte# 0.33 X10^3/uL; Monocyte% 6.5 % (0-10); NRBC Flagged by Analyzer 0 % (0-5); Neutrophil % 68.7 % (47-70); Platelet Count 253 K/mm3 (150-450); RBC Distribution Width CV 13.8 % (11.6-14.6); RBC Distribution Width SD 48.3 fl (35.1-43.9); Red Blood Count 4.95 M/mm3 (4.2-5.4); White Blood Count 5.1 K/mm3 (4.4-11.0)
[2020-01-05 12:36] LABS: Anion Gap 5 (5-15); BUN 12 mg/dL (7-18); BUN/Creat Ratio 15.7 RATIO (10-20); Calcium,Total 9.2 mg/dL (8.5-10.1); Chloride 107 mmol/L (98-107); Creatinine, Serum 0.76 mg/dL (0.55-1.02); EST Glomerular Filtration Rate 81 mL/min (>60); Est Glom Filt Rate - Afr Amer 98 mL/min (>60); Estimated Creatinine Clearance 72.72 ml/min; Glucose 95 mg/dL (74-106); Sodium Level 141 mmol/L (136-145)
[2020-01-05] MEDS: 0.9% Normal Saline 1,000 ML 150 ML IV (13:14)
--- NOTE | 2020-01-05 13:35 | HP.PCM_ITS ---
Problem List (1) TIA (transient ischemic attack) Status: Acute (2) Chest pain Status: Acute Qualifiers: Chest pain type: unspecified Qualified Code(s): R07.9 - Chest pain, unspecified (3) Elevated BP without diagnosis of hypertension Status: Acute (4) GERD (gastroesophageal reflux disease) Status: Chronic Qualifiers: Esophagitis presence: esophagitis presence not specified Qualified Code(s): K21.9 - Gastro-esophageal reflux disease without esophagitis History of Present Illness Date of Admission: 01/05/20 Chief Complaint: RUE paresthesias transiently, Dizziness, Balance difficulties, Chest pain The patient is a 64 y/o F relatively healthy without notably medical history who presents to the [facility] ED on 01/05/20 with history of onset ~ 24 hours prior fatigue, malaise, dizziness, worse with activity and episode of vertigo while laying down, reported the ceiling as spinning in addition to episode of RUE paresthesias noted to have occurred while on the couch resting, denied contorting it, noted to last ~ 3-4 hours with complete resolution following with since ongoing imbalance with attempted ambulation although not specifically falling to one side in addition to ongoing increased dyspepsia complaints, burning sensation, midsternal/epigastric region with increased burping and mild abdominal distention and discomfort, rated cramping, 3-4 intermittently with admitted recently eating out several days in a row with nausea without emesis, no recent fever or chills prompting eventual ED presentation. Work-up in the ED included T 98.1, heart rate 85, BP 155/96 originally, respiratory rate 16, under percent on room air, unremarkable CBC, unremarkable BMP, troponin less than 0.015, EKG with no acute evidence of ischemia, analysis with no concerning findings, chest x-ray with no acute cardiopulmonary findings, CT head as well as CTA head and neck with no acute intracranial findings as well as normal- appearing cervical, carotid and vertebral arteries with no stenosis identified. In the ED patient administered Zofran, normal saline and aspirin therapy. Past Medical History Past Medical History (Chronic Problems): Chronic Problems (Last Reviewed 06/23/19 @ 13:20 by Kyara Anne) GERD (gastroesophageal reflux disease) (Chronic) Allergies Penicillins Allergy (Mild, Verified 01/05/20 11:09) rash Home Medications: Ambulatory Orders Medication Instructions Recorded calcium carbonate-vitamin D3 600 1 cap PO DAILY 02/28/18 mg (1,500 mg)-400 unit capsule conjugated estrogens 0.625 mg/gram 1 applic VAGINAL .COMPLEX #30 g 02/28/18 vaginal cream megpcbvguls-gyy-wcggtudzf-hrb 1 tab PO DAILY 02/28/18 149-hyalur 500 mg-500 mg-66.7 mg tablet multivitamin 1 tab PO QDAY 02/28/18 Biotin 5,000 mcg PO DAILY 01/05/20 Surgical History: Surgical History (Last Reviewed 06/23/19 @ 13:20 by Kyara Anne) H/O: Z98.891 x2 Surgical History: - - x2. 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 Paternal Family History: Family History (Last Reviewed 06/23/19 @ 13:20 by Kyara Anne) Brother Bladder cancer Mother Uterine cancer Father Heart disease Myocardial infarction History Items: - - Father with a history of CAD, [place] initially at age 72, required PCI, currently alive and turning 91. Review of Systems Constitutional: Reports: Anorexia, Malaise, Weakness, Fatigue. Denies: Chills, Fever, Weight Change HEENT: Denies: Head Aches, Sinus Congestion, Sinus Drainage Cardiovascular: Reports: Chest Pain, Light Headedness. Denies: Chest Pressure, Chest Tightness, Heaviness, Orthopnea, Palpitations, Syncope Respiratory: Denies: Cough, Shortness of Breath, Shortness of breath at rest, Shortness of breath upon exertion, Sputum production, Wheezing Gastrointestinal: Reports: Abdominal Pain, Nausea. Denies: Vomiting Genitourinary: Denies: Dysuria Musculoskeletal: Denies: Joint Pain, Joint Tenderness Skin: Denies: Rash, Wounds Neurological: Reports: Balance problems, Numbness, Tingling, - - Vertigo.. Denies: Focal weakness Psychiatric: Denies: Anxiety, Depression, Homicidal Ideations, Suicidal Ideations Hematologic/ Lymphatic: Denies: Easy Bruising, Easy Bleeding VTE Information - Inpt Only VTE Present on Admission: No VTE Mechan Device Prophylaxis: SCD's VTE Pharm Prophylaxis ordered?: Yes Patient Problems: Active and Suspected Problems (Last Reviewed 06/23/19 @ 13:20 by Kyara Anne) TIA (transient ischemic attack) (Acute) Chest pain (Acute) Elevated BP without diagnosis of hypertension (Acute) Subjective: Seated upright in the ED bed, mildly fatigued appearance, no acute distress, notes lessened dyspepsia, less in burning sensation, no paresthesias to the right upper extremity. Objective: Physical Examination: General: awake, alert, oriented x 3 and cooperative, seated upright in the ED bed in no apparent distress, lessening dyspepsia no current vertigo, no paresthesias. Skin: normal color, turgor, no icterus, cyanosis. HEENT: AT/NC, EOMI, PERRLA, oddly dry MM, no carotid bruits or JVD noted. Lungs: CTA bilaterally, moderate effort, mild decrease BL bases, no rales, ronchi or wheezing. Heart: Regular rate and rhythm; no gallop, rub audible. Abdomen: soft, no severe tenderness palpation, mild discomfort generally, appears mildly distended, mildly hyperactive bowel sounds, no obvious HSM. Extremities: no cyanosis, clubbing, or edema. Neurological: patient awake, alert, oriented x 3; cognitive function appears baseline intact; pupils equally reactive to light and accomodation; cranial nerves II-XII grossly normal, moving all 4 extremities, no focal deficits, strength preserved, mptyjc-uj-ggwt and zcjq-xs-ctbg intact bilaterally, negative Babinski, no evidence of nystagmus. Psychiatric: affect appears mildly fatigued, no acute evidence of depressive or anxiety feelings. - Physical Exam Vitals/I&O's: Vital Signs Temp Pulse Resp BP Pulse Ox 98.1 F 85 11 L 133/95 H 99 01/05/20 11:09 01/05/20 13:11 01/05/20 13:11 01/05/20 13:11 01/05/20 13:11 Oxygen Delivery Method Room Air Weight: 136 lb 0.403 oz Body Mass Index (BMI) 21.3 Intake and Output for Last 24 Hours 01/03/20 01/04/2001/05/20 23:59 23:59 23:59 Intake Total 1000 / 1000 Balance 1000 / 1000 Microbiology Past 72 Hours 01/05/20 11:54 Mucosa - Nasopharyngeal Influenza Types A,B Direct FA (INA) - Final Laboratory Results 01/05/20 11:50: Urine Color Yellow, Urine Clarity Clear, Urine pH 7.0, Ur Specific [place] 1.010, Urine Protein Negative, Urine Glucose (UA) Normal, Urine Ketones Negative, Urine Occult Blood Negative, Urine Nitrite Negative, Urine Bilirubin Negative, Urine Urobilinogen Normal, Ur Leukocyte Esterase Negative, Urine RBC 0 SEEN, Urine WBC 0 SEEN, Ur Squamous Epith Cells 0-5 SEEN, Urine Bacteria 0 SEEN, Urine Mucus 0 SEEN 01/05/20 11:58: WBC 5.1, RBC 4.95, Hgb 14.7, Hct 46.7, MCV 94.3, MCH 29.7, MCHC 31.5 L, RDW Std Deviation 48.3 H, RDW Coeff of Haleigh 13.8, Plt Count 253, MPV 11.1, Immature Gran % (Auto) 0.200, Neut % (Auto) 68.7, Lymph % (Auto) 23.0, Rice % (Auto) 6.5, Eos % (Auto) 1.0, Baso % (Auto) 0.6, Absolute Neuts (auto) 3.5, Absolute Lymphs (auto) 1.17, Nucleated RBC % 0 01/05/20 11:58: Sodium 141, Potassium 4.0, Chloride 107, Carbon Dioxide 29.0, Anion Gap 5, BUN 12, Creatinine 0.76, Estim Creat Clear Calc 72.72, Est GFR (M DRD) Af Amer 98, Est GFR (MDRD) Non-Af 81, BUN/Creatinine Ratio 15.7, Glucose 95, Calcium 9.2, Troponin I < 0.015 Current Medications Sodium Chloride () 1,000 mls @ 150 mls/hr IV .Q6H40M [facility] Last Admin: 01/05/20 13:14 Dose: 150 mls/hr Documented by: Assessment/Plan All Active Problems (Last Reviewed 06/23/19 @ 13:20 by Kyara Anne) TIA (transient ischemic attack) (Acute) Chest pain (Acute) Elevated BP without diagnosis of hypertension (Acute) The patient is a 64 y/o F relatively healthy without notably medical history who presents to the [facility] ED on 01/05/20 with history of onset ~ 24 hours prior fatigue, malaise, dizziness, worse with activity and episode of vertigo while laying down, reported the ceiling as spinning in addition to episode of RUE paresthesias noted to have occurred while on the couch resting, noted to last ~ 3-4 hours with complete resolution following with since ongoing imbalance with attempted ambulation, dyspepsia/burning sensation in midsternal/epigastric region w/ mild abdominal distention and discomfort.; 1. Imbalance, right upper extremity transient paresthesias concerning for possible TIA/CVA: Will admit to PCU, will obtain MRI Brain, ECHO, PT/OT/Speech/Nutrition evaluation per protocol. Will allow permissive HTN however if continued elevated BPs above goal will need to consider initiation of regimen, maintain on asa, AM FLP, fall precautions, pending TSH, mag, HgbA1c levels. 2. Atypical Chest Pain:? Dyspepsia. EKG in ED with sinus rhythm with no acute evidence of ischemia, CXR w/ no acute cardiopulmonary findings, initial trop normal x1, will place on a monitored bed to assure no acute myocardial infarction with serial cardiac enzymes and EKGs. ASA, NG, morphine. FLP in AM. ECHO pending. May need to consider alternate evaluation pending #1 work-up. 3. Elevated BP without hypertensive diagnosis: Given acute presentation #1 we will allow permissive hypertension but initiate regimen if becomes clinically appropriate. 4. GERD: We will maintain on famotidine. 5. DVT prophylaxis: SCDs, Lovenox. Code Visit OBSV E&M: 51612 Initial observation care L3
[2020-01-05] MEDS: Aspirin 81 MG TAB.CHEW PO (13:55)
--- NOTE | 2020-01-05 14:06 | ED.VISSUMM ---
- ER Visit Summary Date of Service: 01/05/20 Chief Complaint: [Dizziness] History of Present Illness: The patient is a 64 F [presents the emergency department complaint of dizziness that started yesterday. Patient states that she was at work around 4 PM when she had sudden onset of feeling off balance and dizzy. Patient had some discomfort in her right arm and paresthesia-like symptoms and ache. She denies any chest pain. She denied recent illness. She denied recent travel. She denies any falls or head injuries. She denies headache. Patient states that the discomfort in her arms seem to may be resolved and she slept all night but when she woke up this morning was still there. She continued to complain of the dizziness and feeling off balance. She denies any ringing in the ears currently. She denies any vomiting although she is had nausea with it. Patient thought maybe she was coming down with a virus possibly. She denies weakness in extremities. She denies visual changes. She denies speech difficulty. Is never had symptoms like this before.] Physical Examination: [HEENT-PERRLA, EOMI. Cranial nerves II through XII grossly intact. TMs clear. Mucous membranes moist. No adenopathy. Cardiovascular-regular rate and rhythm without murmur or ectopy Lungs-clear to auscultation, chest wall stable without crepitus or subcu emphysema Abdomen-normoactive bowel sounds, soft, nontender, no rebound or rigidity, no peritoneal signs. Neuro cvfc-klnbef-aszv and heel herrera testing within normal limits, negative Romberg, negative for drift, fundi benign. Hallpike maneuver performed showed no evidence of nystagmus. I cannot reproduce her symptoms. Extremities-intact ?4, normal range of motion, normal pulses, atraumatic] Test Results: [EKG obtained arrival shows sinus rhythm with a ventricular rate of 73 bpm with no acute ST segment changes. CBC with differential is normal. Chemistries normal. Urinalysis normal. Troponin was less than 0.015. CTA of the head and neck was normal.] Emergency Department Course and Treatment: [Received aspirin.] Treatment Plan: [Admit for further work-up and evaluation of this dizziness and paresthesias. Cannot rule out strokelike equivalent. She is not within the window for TPA as she has had symptoms for over 19 hours.] Disposition: [Admit] Impression: [Dizziness-etiology uncertain Paresthesias] This note was generated with Ecinityation software. It may contain incorrect words, spelling, and punctuation that were not noted in review of the chart prior to signing
--- NOTE | 2020-01-05 14:30 | MRI_ITS ---
STUDY: MRI BRAIN WITHOUT CONTRAST REASON FOR EXAM: Female, 64 years old. CVA, right arm tingling, dizziness TECHNIQUE: Standardized multiplanar fat and water weighted pulse sequences were obtained. COMPARISON: CT head 01/05/2020. FINDINGS: There is no intracranial mass, mass effect, or midline shift. No hemorrhage, territorial infarct, or acute ischemia. Normal size of the ventricles and extra-axial spaces for the patient''s age. Normal white matter tracts of the supratentorial brain. There is no extra-axial fluid accumulation. Normal flow voids within the major intracranial circulation suggesting patency by spin echo criteria. Normal sella turcica, pituitary gland, infundibular stalk, optic chiasm and hypothalamus. Normal midbrain, charles and medulla. Normal cerebellum. Normal basal cisterns. Normal bilateral temporal bones. No demonstrated orbital abnormality, within the constraints of a routine brain study. Normal visualized paranasal sinuses. Normal calvarium and skull base. Normal visualized soft tissue structures. MRI/Brain without Contrast IMPRESSION: Normal unenhanced MRI of the brain. Electronically Signed: Wanda Cazares MD at 19:55 EST Tel , Service support ,
--- NOTE | 2020-01-05 14:30 | ECHOD_ITS ---
Reason For Study: TIA/CVA Procedure This was a 2D Doppler, Color Flow transthoracic echocardiogram. The study was technically difficult. The patient has pectus excavatum. Exam performed portable in patient room. Left Ventricle Based upon the 2D echocardiographic images obtained there appears to be grossly normal left ventricular size, wall motion, and systolic function. The estimated ejection fraction is 65 %. Unable to assess diastolic dysfunction. Right Ventricle Normal RV size. Normal systolic function. Atria Normal left atrium. The right atrium is not well visualized. No doppler evidence for ASD. Mitral Valve There is no mitral annular calcification. Normal mitral valve. Trivial mitral valve insufficiency. Tricuspid Valve The tricuspid valve is not well visualized. Aortic Valve The aortic valve is not well visualized. Pulmonic Valve The pulmonic valve is not well visualized. Great Vessels Normal sized aortic root. Pericardium/Pleural No pericardial effusion. MMode/2D Measurements & Calculations LVIDd: 3.6 cm IVSd: 0.95 cm Ao root diam: 3.0 cm LVIDs: 2.3 cm LVPWd: 1.0 cm FS: 34.3 % LA dimension(2D): 3.1 cm Doppler Measurements & Calculations MV E max mandie: 39.7 cm/sec PA V2 max: 76.0 cm/sec MV A max mandie: 67.3 cm/sec MV E/A: 0.59 Interpretation Summary The study was technically difficult secondary to the patient having pectus excavatum. Based upon the 2D echocardiographic images obtained there appears to be grossly normal left ventricular size, wall motion, and systolic function. The estimated ejection fraction is 65 %. Trivial mitral valve insufficiency. Unable to assess diastolic dysfunction. Ordering Physician: Agustina Sheehan Referring Physician: Kelsey Alcantara M.D. Performed By: Monica Mcfadden RDCS
[2020-01-05 14:58] LABS: Hemoglobin A1c 5.6 % (4.2-6.3)
[2020-01-05 15:00] LABS: Magnesium 2.4 mg/dL (1.6-2.6); Thyroid Stim Hormone (TSH) 1.96 uIU/mL (0.358-3.74)
--- NOTE | 2020-01-05 15:00 | EKG12_ITS ---
Test Reason : TIA ADMIT Blood Pressure : / mmHG Vent. Rate : 083 BPM Atrial Rate : 083 BPM P-R Int : 196 ms QRS Dur : 098 ms QT Int : 390 ms P-R-T Axes : 062 004 051 degrees QTc Int : 458 ms Normal sinus rhythm Normal ECG When compared with ECG of 22-OCT-2018 20:54, Questionable change in QRS axis Confirmed by KALEN ESPINOZA, MED ([id number]), graphics editor NATALIA NAJERA ([id number]) on 01/11/2020 9:01:51 AM Referred By: JAMSHID Confirmed By:BARBARA HIGUERA MD
[2020-01-05] MEDS: 0.9% Normal Saline 1,000 ML 100 ML IV (15:02)
[2020-01-05] MEDS: Famotidine 20 MG Tablet PO ×2 (15:30→22:09)
[2020-01-06 03:00] VITALS: PULSE 77
[2020-01-06 03:45] VITALS: BP 112/77; PULSE 81; RESP 16; TEMP 36.7; O2SAT 95
[2020-01-06 06:53] LABS: Absolute Lymphocyte Count 1.29 X10^3/uL (0.83-4.51); Absolute Neutrophil Count 2.8 X10^3/uL (2.0-7.7); Basophil# 0.03 X10^3/uL; Basophil% 0.7 % (0-1); Eosinophil# 0.14 X10^3/uL; Eosinophils% 3.1 % (0-5); Hematocrit 42.3 % (37-47); Hemoglobin 13.1 g/dL (12.0-15.0); Lymphocyte # 1.29 X10^3/ul (4.0); Lymphocyte % 28.2 % (19-41); Mean Corpuscular Hgb 29.4 pg (27.0-32.0); Mean Corpuscular Volume 95.1 fL (81-99); Mean Platelet Vol. 10.8 fl (6.2-12.0); Monocyte# 0.32 X10^3/uL; NRBC Flagged by Analyzer 0 % (0-5); Neutrophil # 2.79 X10^3/uL (2.7-7.7); Neutrophil % 60.8 % (47-70); Platelet Count 225 K/mm3 (150-450); RBC Distribution Width CV 13.7 % (11.6-14.6); RBC Distribution Width SD 48.1 fl (35.1-43.9); Red Blood Count 4.45 M/mm3 (4.2-5.4); White Blood Count 4.6 K/mm3 (4.4-11.0)
[2020-01-06 06:55] VITALS: O2SAT 95
[2020-01-06 06:56] VITALS: PULSE 76
[2020-01-06] MEDS: Acetaminophen 325 MG Tablet 650 MG PO (06:56)
[2020-01-06 07:24] LABS: Anion Gap 3 (5-15); BUN 10 mg/dL (7-18); BUN/Creat Ratio 16.7 RATIO (10-20); Calcium,Total 8.7 mg/dL (8.5-10.1); Chloride 112 mmol/L (98-107); Cholesterol 171 mg/dL (200); EST Glomerular Filtration Rate 107 mL/min (>60); Est Glom Filt Rate - Afr Amer 130 mL/min (>60); Estimated Creatinine Clearance 88.68 ml/min; Glucose 83 mg/dL (74-106); High Density Lipoprotein 65 mg/dL; Sodium Level 143 mmol/L (136-145); Triglycerides 69 mg/dL; Very Low Density Lipoprotein 14 mg/dL (5-40)
[2020-01-06 09:20] VITALS: BP 154/80; PULSE 94; RESP 18; TEMP 36.6; O2SAT 98
[2020-01-06] MEDS: Aspirin 81 MG TAB.CHEW PO (09:27)
[2020-01-06] MEDS: Famotidine 20 MG Tablet PO (09:28)
--- NOTE | 2020-01-06 11:24 | CASEMGMT ---
Social Work: PHQ-9 completed. Patient scored a 0/27 indicating no depression. ROSETTE Brar
[2020-01-06 12:08] VITALS: BMI 21.2
--- NOTE | 2020-01-06 13:34 | DCINST_ITS ---
- Discharge Diagnoses Current Active Problems: Current Active and Chronic Problems (Last Reviewed 06/23/19 @ 13:20 by Kyara Anne) TIA (transient ischemic attack) (Acute) Chest pain (Acute) GERD (gastroesophageal reflux disease) (Chronic) Elevated BP without diagnosis of hypertension (Acute) You will use the following diet at home:: Cardiac Your food should be the consistency of: Regular Your liquids should be the consistency of: Regular/Thin Discharge Activity: Return to Normal Activity Allergies/Adverse Reactions: Allergies Penicillins Allergy (Mild, Verified 01/05/20 11:09) rash Medications to take at Discharge calcium carbonate-vitamin D3 600 mg (1,500 mg)-400 unit capsule 1 cap PO DAILY 02/28/18 conjugated estrogens 0.625 mg/gram vaginal cream 1 applic VAGINAL .COMPLEX #30 g 02/28/18 xoqryjjjinq-xsq-owujxavos-hrb 149-hyalur 500 mg-500 mg-66.7 mg tablet 1 tab PO DAILY 02/28/18 multivitamin 1 tab PO QDAY 02/28/18 Biotin 5,000 mcg PO DAILY 01/05/20 Primary Care Physician: Kelsey Alcantara MD [Primary Care Provider] - Please follow up with your Primary Care Physician in: 1-2 weeks Test Results: Test results from this visit will be discussed in further detail at your follow- up appointment, if applicable. Please Follow Up With: Wallace Powell MD - ENT, Vertigo When: 2 weeks Proposed Discharge Date: 01/06/20
--- NOTE | 2020-01-06 13:36 | DS.PCM_ITS ---
<Yomi Meneses - Last Filed: 01/06/20 13:36> Discharge Date and Diagnosis Date of Admission: 01/05/20 Date of Discharge: 01/06/20 - Primary Discharge Diagnosis Active and Suspected Problems (Last Reviewed 06/23/19 @ 13:20 by Kyara Anne) Dizziness,vertigo TIA/CVA ruled out - Secondary Discharge Diagnosis Chronic Problems (Last Reviewed 06/23/19 @ 13:20 by Kyara Anne) GERD (gastroesophageal reflux disease) (Chronic) Hospital Course and Treatment Imaging Results: CT/CTA Head AND Neck W/ Contrast IMPRESSION: Normal CTA of the Head Normal CTA of the Cervical Carotid and Vertebral Arteries. No stenosis identified. RAD/Chest 1 View (Portable) IMPRESSION: Normal portable chest. MRI/Brain without Contrast IMPRESSION: Normal unenhanced MRI of the brain. Echo: Interpretation Summary The study was technically difficult secondary to the patient having pectus excavatum. Based upon the 2D echocardiographic images obtained there appears to be grossly normal left ventricular size, wall motion, and systolic function. The estimated ejection fraction is 65 %. Trivial mitral valve insufficiency. Unable to assess diastolic dysfunction. Operations: None Procedures: 2-D Echocardiogram Summary of Care Provided: Hospital Course: The patient is a 64 year old F without significant past medical history who presented to the emergency room with chief complaint of vertigo. The patient had experienced dizziness, ringing in her ears, then laid down because she felt dizzy, as she was lying down she developed some paresthesias like her arm was going to sleep in her right arm and experienced some heartburn as well. This started about 24 hours prior to presentation. She came to the emergency room and had a CTA of the head and neck which was negative, and unremarkable blood work, chest x-ray which was negative she had no further symptoms after admission. She was admitted to the PCU on telemetry with concerns for TIA / stroke. She underwent an MRI of the brain which was negative, echocardiogram which was unremarkable. She was felt to have had vertigo, possibly positional. I recommended that she follow-up with ENT as an outpatient in 2 weeks, her PCP in 1 to 2 weeks. She was discharged home in stable condition. This patient was seen by Yomi Meneses PA-C under the supervision of Doctor Clifton. [] - Physical Exam Vitals/I&O's: Vital Signs Temp Pulse Resp BP Pulse Ox 97.9 F 94 18 154/80 H 98 01/06/20 09:20 01/06/20 09:20 01/06/20 09:20 01/06/20 09:20 01/06/20 09:20 Oxygen Delivery Method Room Air Weight: 131 lb 9.855 oz Body Mass Index (BMI) 21.2 Intake and Output for Last 24 Hours 01/04/20 01/05/20 01/06/20 23:59 23:59 23:59 Intake Total 2910 / 2910 710 / 710 Balance 2910 / 2910 710 / 710 General: Alert, Oriented x3, Cooperative HEENT: Atraumatic, PERRLA, EOMI, Normocephalic Neck: Supple, No JVD, Negative Carotid Bruits Lungs: Clear to auscultation, Normal air movement Cardiovascular: Regular rate, No murmurs Abdomen: Bowel Sounds Present, Soft, Non Tender Extremities: No edema, Capillary Refill Less than 3 Seconds Skin: No rashes, No breakdown Musculoskeletal: No Tenderness to Palpation of Joints or Extremities Neurological: Cranial nerves II-XII grossly intact Psych/Mental Status: Normal Affect, Appropriate, Alert and oriented to time, place, person, mood and affect Microbiology Past 72 Hours 01/05/20 11:54 Mucosa - Nasopharyngeal Influenza Types A,B Direct FA (INA) - Final Laboratory Results 01/05/20 11:58: Magnesium 2.4, TSH 1.96 01/05/20 11:58: Hemoglobin A1c 5.6 01/05/20 15:50: Troponin I < 0.015 01/05/20 18:19: Troponin I < 0.015 01/06/20 06:30: WBC 4.6, RBC 4.45, Hgb 13.1, Hct 42.3, MCV 95.1, MCH 29.4, MCHC 31.0 L, RDW Std Deviation 48.1 H, RDW Coeff of Haleigh 13.7, Plt Count 225, MPV 10.8, Immature Gran % (Auto) 0.200, Neut % (Auto) 60.8, Lymph % (Auto) 28.2, [place] % (Auto) 7.0, Eos % (Auto) 3.1, Baso % (Auto) 0.7, Absolute Neuts (auto) 2.8, Absolute Lymphs (auto) 1.29, Nucleated RBC % 0 01/06/20 06:30: Sodium 143, Potassium 4.0, Chloride 112 H, Carbon Dioxide 28.0, Anion Gap 3 L, BUN 10, Creatinine 0.60, Estim Creat Clear Calc 88.68, Est GFR (MDRD) Af Amer 130, Est GFR (MDRD) Non-Af 107, BUN/Creatinine Ratio 16.7, Glucose 83, Calcium 8.7, Triglycerides 69, Cholesterol 171, LDL Cholesterol 92, VLDL Cholesterol 14, HDL Cholesterol 65 Current Medications Acetaminophen (Tylenol) 650 mg PO Q6H PRN PRN PRN Reason: Pain Score 1-10/Temp > 100.7 F Last Admin: 01/06/20 06:56 Dose: 650 mg Documented by: Al Hydroxide/Mg Hydroxide (Mylanta Ii) 30 ml PO Q6H PRN PRN PRN Reason: Gastric Burning Albuterol Sulfate (Ventolin Aerosols) 2.5 mg INHALATION Q2H PRN PRN PRN Reason: SOB/Wheezing Aspirin (Aspirin, Baby) 81 mg PO DAILY@0800 [facility] Last Admin: 01/06/20 09:27 Dose: 81 mg Documented by: Enoxaparin Sodium (Lovenox) 40 mg SC DAILY [facility] Last Admin: 01/06/20 09:28 Dose: Not Given Documented by: Famotidine (Pepcid) 20 mg PO BID [facility] Last Admin: 01/06/20 09:28 Dose: 20 mg Documented by: Glucagon () 1 mg IM .X1 PRN PRN Reason: Hypoglycemia Guaifenesin (Robitussin) 20 ml PO Q4H PRN PRN PRN Reason: COUGH Sodium Chloride () 250 mls @ 15 mls/hr IV .[id number] PRN PRN Reason: Saline Flush Sodium Chloride () 250 mls @ 15 mls/hr IV .[id number] PRN PRN Reason: Additional IVPB Infusion Dextrose (Dextrose 10%-Water) 250 mls @ 999 mls/hr IV .Q16M PRN; Protocol PRN Reason: HYPOGLYCEMIA Magnesium Hydroxide (Milk Of Magnesia) 30 ml PO DAILY PRN PRN PRN Reason: Constipation Melatonin (Melatonin) 3 mg PO QHS PRN PRN PRN Reason: INSOMNIA Nitroglycerin (Nitrostat) 0.4 mg SUBLINGUAL Q5M PRN PRN Reason: CARDIAC/CHEST PAIN Ondansetron HCl (Zofran) 4 mg IV Q8H PRN PRN PRN Reason: NAUSEA/VOMITING Prochlorperazine Edisylate (Compazine Iv) 5 mg IV Q4H PRN PRN PRN Reason: Breakthrough Nausea/Vomiting Psyllium Hydrophilic Mucilloid (Metamucil) 1 packet PO DAILY PRN PRN PRN Reason: Constipation Senna/Docusate Sodium (Senokot-S, Rosalva-Colace) 2 tablet PO BID PRN PRN PRN Reason: Constipation Sodium Chloride () 10 - 40 ml IV UD PRN PRN Reason: SALINE FLUSH Throat Lozenges (Cepacol Sore Throat Lozenge) 1 lozenge MUCOUS MEM Q2H PRN PRN PRN Reason: SORE THROAT Discharge Diet: Low fat/ Low Cholesterol, 2000 mg Sodium Diet Discharge Activity: Return to Normal Activity Home Medications: Medications to take at Discharge calcium carbonate-vitamin D3 600 mg (1,500 mg)-400 unit capsule 1 cap PO DAILY 02/28/18 conjugated estrogens 0.625 mg/gram vaginal cream 1 applic VAGINAL .COMPLEX #30 g 02/28/18 sfuryozwmxv-gsb-jczoidbim-hrb 149-hyalur 500 mg-500 mg-66.7 mg tablet 1 tab PO DAILY 02/28/18 multivitamin 1 tab PO QDAY 02/28/18 Biotin 5,000 mcg PO DAILY 01/05/20 Primary Care Physician: Kelsey Alcantara MD [Primary Care Provider] - Please follow up with your Primary Care Physician in: 1-2 weeks Please Follow Up With: Wallace Powell MD - ENT, Vertigo When: 2 weeks Disposition: Home Minutes spent on discharge:: 35 Patient Condition:: Stable Medical Necessity - Tobacco Use Smoking Status: Never smoker Tobacco Use: Non-smoker Meaningful Use Info Meaningful Use Diagnoses (Choose all that apply): None applicable <Denzel Lazo - Last Filed: 01/06/20 17:28> Discharge Date and Diagnosis - Secondary Discharge Diagnosis Chronic Problems (Last Reviewed 06/23/19 @ 13:20 by Kyara Anne) GERD (gastroesophageal reflux disease) (Chronic) Hospital Course and Treatment Summary of Care Provided: This patient was seen in conjunction with Yomi GOLD. I have independently interviewed and examined the patient and reviewed pertinent history, examination findings, laboratory and plan of management. I have reviewed the note and agree with the documented findings with the few additional points. In brief, patient is admitted for nonspecific symptoms of dizziness, vertigo, tinnitus and had some paresthesia in arms. Patient had MRI brain done which was negative for acute ischemia. Echocardiogram was unremarkable with no wall motion abnormality. Chest x-ray was negative. CT of head and negative did not show any major occlusion or aneurysm. Discharge medication reconciliation done. Discharge follow-up instructions completed. Discharge process discussed with the patient and all questions were answered to patient's satisfaction. Patient was advised to follow-up ENT in 2 to 3 weeks. I have discussed my assessment with Yomi GOLD and orders have been reviewed. [] Clinical Impression(s) from Imaging Studies Head/Neck CTA 01/05/20 11:32 IMPRESSION: Normal CTA of the Head Normal CTA of the Cervical Carotid and Vertebral Arteries. No stenosis identified. Electronically Signed: Micah Rocha, at 13:58 EST Tel , Service support , Chest X-Ray 01/05/20 12:00 IMPRESSION: Normal portable chest. Electronically Signed: Micah Rocha, at 12:21 EST Tel , Service support , Brain MRI 01/05/20 14:30 IMPRESSION: Normal unenhanced MRI of the brain. Subjective: Seen and examined. History taken from the patient. Patient has episode of dizziness, feeling unwell, malaise, vertigo and tinnitus for about 2 to 3 hours. This is all resolved. Patient denies any chest pain. - Physical Exam Vitals/I&O's: Vital Signs Temp Pulse Resp BP Pulse Ox 97.9 F 94 18 154/80 H 98 01/06/20 09:20 01/06/20 09:20 01/06/20 09:20 01/06/20 09:20 01/06/20 09:20 Oxygen Delivery Method Room Air Weight: 131 lb 9.855 oz Body Mass Index (BMI) 21.2 Intake and Output for Last 24 Hours 01/04/20 01/05/20 01/06/20 23:59 23:59 23:59 Intake Total 2909 / 2909 / Balance 2909 / General: Alert, Oriented x3, Cooperative HEENT: Atraumatic, PERRLA, EOMI, Normocephalic Neck: Supple, No JVD, Negative Carotid Bruits Lungs: Clear to auscultation, Normal air movement, No rhonchi, No wheeze, No rales Cardiovascular: Regular rate, Regular Rhythm, Normal S1, Normal S2, No murmurs Abdomen: Bowel Sounds Present, Soft, Non Tender, Non-Distended Extremities: No edema, Capillary Refill Less than 3 Seconds Skin: No rashes, No breakdown Musculoskeletal: No Tenderness to Palpation of Joints or Extremities Neurological: Cranial nerves II-XII grossly intact, Deep Tendon Reflexes 2+/4 and Symmetrical, Neuro grossly intact Psych/Mental Status: Normal Affect, Appropriate Microbiology Past 72 Hours 01/05/20 11:54 Mucosa - Nasopharyngeal Influenza Types A,B Direct FA (INA) - Final Laboratory Results 01/05/20 18:19: Troponin I < 0.015 01/06/20 06:30: WBC 4.6, RBC 4.45, Hgb 13.1, Hct 42.3, MCV 95.1, MCH 29.4, MCHC 31.0 L, RDW Std Deviation 48.1 H, RDW Coeff of Haleigh 13.7, Plt Count 225, MPV 10.8, Immature Gran % (Auto) 0.200, Neut % (Auto) 60.8, Lymph % (Auto) 28.2, [place] % (Auto) 7.0, Eos % (Auto) 3.1, Baso % (Auto) 0.7, Absolute Neuts (auto) 2.8, Absolute Lymphs (auto) 1.29, Nucleated RBC % 0 01/06/20 06:30: Sodium 143, Potassium 4.0, Chloride 112 H, Carbon Dioxide 28.0, Anion Gap 3 L, BUN 10, Creatinine 0.60, Estim Creat Clear Calc 88.68, Est GFR (MDRD) Af Amer 130, Est GFR (MDRD) Non-Af 107, BUN/Creatinine Ratio 16.7, Glucose 83, Calcium 8.7, Triglycerides 69, Cholesterol 171, LDL Cholesterol 92, VLDL Cholesterol 14, HDL Cholesterol 65 Meaningful Use Info Meaningful Use Diagnoses (Choose all that apply): None applicable Code Visit OBSV E&M: 00476 Observation care discharge
--- NOTE | 2020-01-06 14:09 | PHA.DC.MR ---
Pharmacy Service has performed discharge medication reconciliation for this patient. The patient's discharge medication list was reviewed for discrepancies and discrepancies were resolved. Home Medications calcium carbonate-vitamin D3 600 mg (1,500 mg)-400 unit capsule 1 cap PO DAILY 02/28/18 conjugated estrogens 0.625 mg/gram vaginal cream 1 applic VAGINAL .COMPLEX #30 g 02/28/18 gtfodduqdvv-aby-arvcytdfm-hrb 149-hyalur 500 mg-500 mg-66.7 mg tablet 1 tab PO DAILY 02/28/18 multivitamin 1 tab PO QDAY 02/28/18 Biotin 5,000 mcg PO DAILY 01/05/20
--- NOTE | 2020-01-06 14:26 | CHAPLAIN ---
Type of Pastoral Visit _x__ Initial Visit ___ Follow-up Visit ___ On-call Visit ___ General Patient Visit ___ Spiritual Assessment ___ Family Conference ___ Bereavement ___ Rapid Response ___ Code Blue ___ Other (describe below) Pastoral Care Referral From _x__ Patient ___ Family ___ Nurse ___ Physician ___ Care Navigator ___ Hospice Care Consultant ___ Other (describe below) Sacrament/Intervention _x__ Active listening ___ Anointing ___ Mosque ___ Bereavement ___ Communion _x__ Pura exploration ___ _x__ Life review _x__ Prayer ___ Reconciliation ___ Sacrament of Sick ___ Supportive presence ___ Wedding ___ Other (describe below) Pastoral Comments
== END 2020-01-06 13:36 | disposition home or self-care (01) ==
LOC: ED 12:04 → PCU 13:49
PROVIDERS: Admitting Provider Family Medicine; Emergency Provider Emergency Medicine; PCP Internal Medicine; Visit Provider Internal Medicine
DX: R42 Dizziness and giddiness (principal); K21.9 Gastro-esophageal reflux disease without esophagitis; R03.0 Elevated blood-pressure reading, without diagnosis of hypertension; Z79.899 Other long term (current) drug therapy
CPT/HCPCS: 36415; 70496; 70498; 70551; 71045; 80048; 80061; 81001; 83036; 83735; 84443; 84484; 85025; 87804; 93005; 93306; 94762; 96361; 96374; 99218; 99251; 99285; J7030; Q9967; A4216; G0378; G0463; J2405

== ENCOUNTER → 2020-08-11 | Outpatient (CLI) | payer OTHER, SELFPAY ==
[2020-08-11 10:45] VITALS: BMI 21.3
[2020-08-22 11:48] LABS: HPV APTIMA, High Risk Negative (Negative)
== END | disposition home or self-care (01) ==
LOC: LABSPEC 12:36
PROVIDERS: PCP Internal Medicine; Referring Provider Obstetrics & Gynecology; Visit Provider Obstetrics & Gynecology
DX: Z12.4 Encounter for screening for malignant neoplasm of cervix (principal)
CPT/HCPCS: 87624; 88175; G0145

== ENCOUNTER → 2020-09-09 11:41 | Outpatient (CLI) | payer OTHER, SELFPAY ==
[2020-08-11 10:45] VITALS: BMI 21.3
--- NOTE | 2020-09-09 12:01 | BI_ITS ---
MAMMOGRAPHY - BILATERAL SCREENING REASON FOR EXAM: Female, 64 years old. Routine annual screening examination. PERTINENT HISTORY: Non-contributory. TECHNIQUE: Digital bilateral breast mumtaz (3D mammographic acquisition) in the CC and MLO projections. 2-D mediolateral oblique (MLO) and craniocaudad (CC) views of both breasts were obtained. CAD: Full Field Digital Mammography with Computer Added Detection was performed. COMPARISON: Comparison is made with prior study dated 08/10/2019 and 07/05/2018. FINDINGS: Breast Composition: The breasts are heterogeneously dense, which may obscure small masses. There are no dominant masses or suspicious calcifications. Stable benign-appearing bilateral axillary lymph nodes. No other significant abnormalities are identified. There has been no significant change since the prior study. BI/SCREEN MAMM (CAD) W/MUMTAZ BILAT IMPRESSION: Stable bilateral screening mammogram. Yearly follow-up mammogram recommended. (A) ASSESSMENT CATEGORY: BIRADS Category 2: Benign. A letter regarding these results will be sent to the patient by the facility within 30 days. Approximately 10% of breast cancers are not detected by mammography. A normal mammogram should not delay biopsy of a clinically suspicious abnormality. [id number] Electronically Signed: Surinder Mercedes, at 12:44 EDT , Service support ,
== END ==
PROVIDERS: PCP Internal Medicine; Referring Provider Obstetrics & Gynecology; Visit Provider Obstetrics & Gynecology
DX: Z12.31 Encounter for screening mammogram for malignant neoplasm of breast (principal)
CPT/HCPCS: 77063; 77067

== ENCOUNTER 2021-01-17 02:45 | Outpatient (RCR) | payer OTHER, SELFPAY ==
[2020-08-11 10:45] VITALS: BMI 21.3
[2021-01-17] MEDS: COVID-19 VACC, MRNA(PFIZER)/PF 30 MCG/0.3 ML SYRINGE IM (18:41)
[2021-02-07] MEDS: COVID-19 VACC, MRNA(PFIZER)/PF 30 MCG/0.3 ML SYRINGE IM (18:28)
== END 2021-04-18 23:59 ==
LOC: IMMUN 02:45
PROVIDERS: PCP Internal Medicine; Visit Provider Family Medicine
DX: Z23 Encounter for immunization (principal)
CPT/HCPCS: 0001A; 0002A; 91300

== ENCOUNTER → 2021-09-28 16:03 | Outpatient (CLI) | payer OTHER, SELFPAY ==
--- NOTE | 2021-09-28 16:04 | BI_ITS ---
MAMMOGRAPHY - BILATERAL SCREENING REASON FOR EXAM: Female, 65 years old. Routine annual screening examination. PERTINENT HISTORY: Non-contributory. TECHNIQUE: Digital bilateral breast mumtaz (3D mammographic acquisition) in the CC and MLO projections. 2-D mediolateral oblique (MLO) and craniocaudad (CC) views of both breasts were obtained. CAD: Full Field Digital Mammography with Computer Added Detection was performed. COMPARISON: Comparison is made with prior examination dated 09/09/2020 and 08/10/2019 FINDINGS: Breast Composition: The breasts are heterogeneously dense, which may obscure small masses. There are no dominant masses or suspicious calcifications. Stable small benign-appearing bilateral axillary lymph nodes. No other significant abnormalities are identified. There has been no significant change since the prior study. BI/SCRN MAMM (CAD)W/MUMTAZ BILAT IMPRESSION: Stable bilateral screening mammogram. Yearly follow-up mammogram recommended. (A) ASSESSMENT CATEGORY: BIRADS Category 2: Benign. A letter regarding these results will be sent to the patient by the facility within 30 days. Approximately 10% of breast cancers are not detected by mammography. A normal mammogram should not delay biopsy of a clinically suspicious abnormality. [id number] Electronically Signed: Surinder Mercedes MD at 8:27 EST , Service support ,
--- NOTE | 2021-09-28 16:05 | BD_ITS ---
STUDY: DUAL ENERGY X-RAY ABSORPTIOMETRY / DXA REASON FOR EXAM: Female, 65 years old. Estrogen deficiency TECHNIQUE: Bone Mineral Density (BMD) measurements of lumbar spine and bilateral hips were obtained. COMPARISON: None. FINDINGS: Lumbar Spine (L1-L4): g/cm2 (0.805) / T-score (-2.2) / Z-score (-0.4) Findings are suggestive of osteopenia with a high fracture risk. Left Femur Total: g/cm2 (0.716) / T-score (-1.9) / Z-score (-0.6) Left Femoral Neck: g/cm2 (0.595) / T-score (-2.3) / Z-score (-0.7) Right Femur Total: g/cm2 (0.783) / T-score (-1.3) / Z-score (0.0) Right Femoral Neck: g/cm2 (0.654) / T-score (-1.8) / Z-score (0.2) BD/Dexa Bone Density Study IMPRESSION: The patient is considered osteopenic as outlined below according to World Yamil Organization (WHO) criteria with a high fracture risk. Reference Information: The T-score is the number of standard deviations above or below the standard which is normal for young adults at their peak bone mineral density. The World Health Organization (WHO) interprets the T-scores as follows: Above -1 Normal bone density Between -1 and -2.5 Osteopenia Equal to / or below -2.5 Osteoporosis As a practical clinical guideline, osteopenia may be graded as follows: Mild -1 through -1.5 Moderate -1.6 through -2.0 Severe -2.1 through -2.4 The Z-score is the number of standard deviations above or below age-matched controls. A Z-score of less than -1.5 would be considered abnormal. References: 1. NIH Osteoporosis and Related Bone Diseases www osteo.org 2. International Society for Clinical Densitometry www iscd.org 3. National Osteoporosis Foundation www nof.org Electronically Signed: Surinder Mercedes MD at 15:17 EST , Service support ,
== END ==
PROVIDERS: PCP Internal Medicine; Referring Provider Obstetrics & Gynecology; Visit Provider Obstetrics & Gynecology
DX: E28.39 Other primary ovarian failure (principal); Z12.31 Encounter for screening mammogram for malignant neoplasm of breast
CPT/HCPCS: 77063; 77067; 77080

== ENCOUNTER 2022-05-28 15:49 | Emergency (ER) | payer MEDICARE, BC, SELFPAY ==
[2022-05-28 15:52] VITALS: BP 152/98; PULSE 87; RESP 16; TEMP 36.1; O2SAT 100; BMI 21.2
--- NOTE | 2022-05-28 16:09 | EKG12_ITS ---
Test Reason : CP Blood Pressure : / mmHG Vent. Rate : 081 BPM Atrial Rate : 081 BPM P-R Int : 174 ms QRS Dur : 100 ms QT Int : 378 ms P-R-T Axes : 070 -26 041 degrees QTc Int : 439 ms Normal sinus rhythm ELEVATED AXIS, LOW VOLTAGE QRS (LIMB LEADS) Septal infarct , age undetermined Abnormal ECG Confirmed by MORE ESPINOZA, ELIJAH ([id number]), advertising editor MARIA C STYLES ([id number]) on 05/29/2022 10:32:38 AM Referred By: Randolph Confirmed By:ELIJAH AGUERO MD
--- NOTE | 2022-05-28 16:12 | RAD_ITS ---
EXAM: XR CHEST, 1 VIEW CLINICAL INDICATION: chest pain TECHNIQUE: Frontal view of the chest. This report was created using [employer] report generation technology. COMPARISON: XR Chest dated january 05 2020 FINDINGS: LUNGS AND PLEURAL SPACES: Hyperinflation suggesting emphysema. No pneumothorax. No effusion. HEART: Unremarkable. Normal heart size. MEDIASTINUM: Central airways and mediastinal contour are unremarkable. BONES/JOINTS: Stable moderate dextroscoliosis of the thoracic spine. SOFT TISSUES: Unremarkable. RAD/Chest 1 View (Portable) IMPRESSION: No acute cardiopulmonary abnormality. COPD. Electronically Signed: Thaddeus Snyder MD at 16:38 EDT ,
--- NOTE | 2022-05-28 16:24 | EDS_ITS ---
HPI History of Present Illness Chief Complaint: Chest Pain Informant: patient Onset/Context/Timing Onset: Days Activity at onset: gradual Timing: Intermittent Quality: Positive for Indigestion and Pressure Location: Substernal Current Severity: Mild Maximum Severity: Mild Worsened By: Exertion Relieved By: Nothing Associated Symptoms: Positive for Acid Reflux; Negative for Nausea, Vomiting, Diaphoresis, Dyspnea, Cough, Fever, Lightheadedness or Palpitations Narrative Narrative: 66-year-old female history of reflux. States she has had chest pain which she describes as a burning pressure over the last several days. She went to urgent care today and they sent her to the ER. She feels totally exhausted. She had a mild cough and nasal drainage. She has no cardiac history. She is never had a stress test or heart cath. She states she did have chest pain in 2019 which they treated with a GI cocktail and she improved and was discharged home. She denies any history of DVT or PE. No risk factors. No hemoptysis or pleuritic discomfort. Patient is a non-smoker. Prior Similar Symptoms: Yes Recent Illness/Hospitalization: No CVD Risk Factors: Negative for Hypertension, Diabetes, Family History 1' </=55 or Smoking PE Risk Factors: Negative for Recent Travel/Surgery, Recent Immobilization, Prior DVT or PE, Cancer or OCP + Smoking + >/=35 TAD Risk Factors: Negative for Marfan's Syndrome [facility] Medical History TIA (transient ischemic attack) Home Medications calcium carbonate 600 mg-vitamin D3 10 mcg (400 unit) capsule (Calcium 600 with Vitamin D3) 1 cap PO DAILY supplement 02/28/18 [History Last Taken 01/03/20] phieqenqobi-dvx-kfvwqgtnk-hrb 149-hyalur 500 mg-500 mg-66.7 mg tablet (Ppsbpyedzjr-Dhqptsuusfg-RAI (with antiox)) 1 tab PO DAILY supplement 02/28/18 [History Last Taken 01/03/20] multivitamin 1 tab PO QDAY supplement 02/28/18 [History Last Taken 01/03/20] biotin 10,000 mcg capsule 5,000 mcg PO DAILY supplement 01/05/20 [History Last Taken 01/03/20] conjugated estrogens 0.625 mg/gram vaginal cream (Premarin) 0.625 mg vaginal DAILY 10/11/21 [History Last Taken Unknown] Allergy/AdvReac Type Severity Reaction Status Date / Time Penicillins Allergy Mild rash Verified 05/28/22 15:51 Family History Brother Bladder cancer Mother Uterine cancer Father Heart disease Myocardial infarction Surgical History H/O: Social History Smoking Status: Never smoker alcohol intake: current details: 3 times per week (wine) substance use type: does not use caffeine: Yes what type of physical activity do you participate in: none seatbelt use: always do you feel safe at home: Yes 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 Fatigue. Review of Systems ROS Unobtainable: Denies due to encephalopathy Constitutional Constitutional ED: Denies chills Eyes Eyes: Reports none ENT ENT ED: Denies ear pain Cardiovascular Cardiovascular: Reports chest pain Respiratory/Chest Respiratory/Chest: Reports cough; Denies dyspnea Gastrointestinal Gastrointestinal: Denies abdominal pain or constipation Genitourinary Genitourinary ED: Denies dysuria or hematuria Musculoskeletal Musculoskeletal: Denies arthralgias or back pain Integumentary Denies abscess Neurologic Neurologic: Denies headache(s) Psychiatric Psychiatric: Denies anxiety Endocrine Endocrinology: Denies cold intolerance Hematologic/Lymphatic Hematologic/Lymphatic: Denies easy bleeding Allergic/Immunologic Allergic/Immunologic ED: Denies mouth swelling EXAM Physical Exam Narrative Exam Narrative: Well-appearing 66-year-old female. Vital signs stable afebrile. Pulse ox high percent on room air no hypoxia. H EENT exam unremarkable. Lungs clear to auscultation bilaterally. Heart regular rate and rhythm no murmur. Rate about 80. Chest wall nontender. Abdomen soft nontender. Moving all 4 extremities. Calves are nontender without edema or cords. Equal symmetrical radial pulses. Neurologic exam awake and alert no focal motor deficits. Const Vital Signs: 05/28/22 15:52 05/28/22 16:06 05/28/22 17:29 Temperature 97.0 F L Temperature Source Temporal Pulse Rate 87 Respiratory Rate 16 Respiratory Effort Normal Non-Labored Blood Pressure 152/98 H Blood Pressure Mean 116 Pulse Ox 100 98 Oxygen Delivery Method Room Air Room Air 05/28/22 17:29 05/28/22 18:27 Temperature Temperature Source Pulse Rate 73 81 Respiratory Rate 15 12 Respiratory Effort Blood Pressure 115/96 H 141/95 H Blood Pressure Mean 102 110 Pulse Ox 96 100 Oxygen Delivery Method Room Air Room Air Positive well nourished and well developed; Negative for obese, cachectic, contractures or unkempt General Appearance ED: well developed; Negative for unkempt, cachectic, contractures or pallor Nutritional Appearance: Negative for cachectic or obese HEENT Reports moist mucous membranes normocephalic and atraumatic; Negative for trauma or tenderness Eyes PERRL and EOMs intact bilaterally General Eye ED: Negative for pale conjunctiva Neck no lymphadenopathy, supple and no JVD General: Negative for tenderness or other Chest Wall inspection of chest normal and palpation of chest normal Chest: Negative for tenderness Resp normal respiratory effort and clear to auscultation bilaterally Effort and Inspection: Negative for respiratory distress or pain with movement Auscultation: Negative for rales, rhonchi or wheezes Cardio regular rate, regular rhythm, S1 normal heart sound, S2 normal heart sound and no murmurs Rate: Negative for bradycardia Rhythm: Negative for abnormal rhythm Peripheral Pulses: pulses 2+ throughout GI normal to inspection, nondistended, normoactive bowel sounds, soft to palpation, non-tender, non-distended and no masses; Negative for hepatosplenomegaly Auscultation: Negative for hyperactive bowel sounds Palpation: Negative for splenomegaly Back/Spine no CVA tenderness and no thoracic nor lumbar tenderness General Back: Negative for CVA tenderness Cervical Spine: Negative for cervical spine tenderness Extremity normal to inspection General Extremety ED: Negative for edema, pulses abnormal or tenderness General Extremity: Negative for edema or pulses abnormal Neuro oriented x3 and no sensory deficits noted Sensorium / Orientation: awake, alert, oriented to person, oriented to place and oriented to time; Negative for confused, lethargic or stuporous Motor Exam: strength 5/5 throughout Psych mental status grossly normal Appearance: Negative for unkempt Attitude: No agitated Mood & Affect: Negative for depressed or anxious Skin no rashes or lesions noted and no wounds General Skin Exam: Negative for jaundice or pallor Trauma: Negative for abrasion MDM MDM MDM Narrative Medical decision making narrative: 66-year-old with a Steeg and atypical chest pain. Cardiac work-up will be pursued. No risk factors or history of prior PE or DVT. She also be given a GI cocktail and Protonix to see if it improves her symptoms. Repeat exam patient is doing well at 7:28 PM. We discussed all of her test results. She states that the GI cocktail did help her feel better. She will use an tqzw-dyg-pgfdigb reflux medication at home. I did discuss with her possibly following up with her primary care physician to discuss an outpatient stress test even though I do not have a strong believe this was cardiac in etiology. Lab Data Attestation: I reviewed the patient's lab results. Lab results narrative: CBC normal. White count of 6. H&H 14 and 45. Electrolytes unremarkable gap of 5 normal BUN and creatinine. Glucose 98. First troponin less than 3-second troponin was 4. Chest x-ray no acute abnormality. Normal cardiac silhouette and mediastinum. Labs: Laboratory Results - last 24 hr 05/28/22 05/28/22 05/28/22 16:10 16:10 18:25 WBC 6.5 RBC 4.79 Hgb 14.4 Hct 45.5 MCV 95.0 MCH 30.1 MCHC 31.6 L RDW Std Deviation 47.4 H RDW Coeff of Haleigh 13.4 Plt Count 264 MPV 10.9 Immature Gran % (Auto) 0.300 Neut % (Auto) 72.4 H Lymph % (Auto) 20.5 [place] % (Auto) 5.1 Eos % (Auto) 1.2 Baso % (Auto) 0.5 Absolute Neuts (auto) 4.7 Absolute Lymphs (auto) 1.33 Nucleated RBC % 0 Sodium 141 Potassium 3.7 Chloride 106 Carbon Dioxide 30.0 Anion Gap 5 BUN 14 Creatinine 0.82 Estim Creat Clear Calc 63.18 Est GFR (MDRD) Af Amer 89 Est GFR (MDRD) Non-Af 74 BUN/Creatinine Ratio 17.0 Glucose 98 Calcium 9.4 Troponin I High Sens < 3 L 4 Radiography Chest X-Ray - ED: 1 View, Read by ED Physician, Normal, Heart, Lungs, Mediastinum, Bony Structures, No Acute Disease and Chronic Changes Diagnostic Testing: Clinical Impression(s) from Imaging Studies Chest X-Ray 05/28/22 16:12 IMPRESSION: No acute cardiopulmonary abnormality. COPD. Electronically Signed: Thaddeus Snyder MD at 16:38 EDT , Rhythm Strip Rhythm Strip: Sinus Rhythm Rate: 81 Ectopy: None EKG Initial EKG: Attestation: I personally reviewed and interpreted this EKG as follows: Interpretation: Sinus Rhythm and No Acute Injury Pattern Comments: Normal sinus rhythm rate 81 no acute signs of NE or ischemia. Discharge Plan Triage Chief Complaint: Chest Pain ED Provider: Samir Dickson Dx/Rx/DC Orders Clinical Impression: Chest pain, GERD (gastroesophageal reflux disease) Instructions: ED Chest Pain, Uncertain Cause Prescriptions: No Action calcium carbonate-vitamin D3 [Calcium 600 with Vitamin D3] 600 mg(1,500mg) - 400 unit capsule 1 cap PO DAILY multivitamin tablet 1 tab PO QDAY vlamdzybroa-rgy-zghejpqvf-hrb 149-hyalur 500 mg-500 mg-66.7 mg tablet 500-500-66.7 mg tablet 1 tab PO DAILY Premarin 0.625 mg/gram cream 0.625 mg vaginal DAILY Rx Instructions: off 5 days; repeat cycle biotin 10,000 MCG capsule 5,000 mcg PO DAILY Primary Care Provider: Kelsey Alcantara Referrals: Kelsey Alcantara MD [Primary Care Provider] - As soon as possible Activity Restrictions/Additional Instructions: Your test, EKG and chest x-ray today were all normal. You can use mrbj-glp-rfmpmxa Tums and Prilosec for the reflux. I would use 1 Prilosec a day for the next week and then use it as needed. Follow-up with your primary care physician discussed with them possibly an outpatient stress test. But today there is no signs of this being heart related. Disposition Disposition: Home, Self Care
[2022-05-28 16:26] LABS: Absolute Lymphocyte Count 1.33 X10^3/uL (0.83-4.51); Absolute Neutrophil Count 4.7 X10^3/uL (2.0-7.7); Basophil# 0.03 X10^3/uL; Basophil% 0.5 % (0-1); Eosinophil# 0.08 X10^3/uL; Eosinophils% 1.2 % (0-5); Hematocrit 45.5 % (37-47); Hemoglobin 14.4 g/dL (12.0-15.0); Lymphocyte # 1.33 X10^3/ul (0.83-4.51); Lymphocyte % 20.5 % (19-41); Mean Corp Hgb Conc 31.6 g/dL (32-36); Mean Corpuscular Hgb 30.1 pg (27.0-32.0); Mean Platelet Vol. 10.9 fl (6.2-12.0); Monocyte# 0.33 X10^3/uL; Monocyte% 5.1 % (0-10); NRBC Flagged by Analyzer 0 % (0-5); Neutrophil # 4.69 X10^3/uL (2.7-7.7); Neutrophil % 72.4 % (47-70); Platelet Count 264 K/mm3 (150-450); RBC Distribution Width CV 13.4 % (11.6-14.6); RBC Distribution Width SD 47.4 fl (35.1-43.9); Red Blood Count 4.79 M/mm3 (4.2-5.4); White Blood Count 6.5 K/mm3 (4.4-11.0)
[2022-05-28] MEDS: Mag Hydrox/Al Hydrox/Simeth 30 ML UDC PO (16:34)
[2022-05-28] MEDS: Pantoprazole Sodium 40 MG Tablet PO (16:34)
[2022-05-28 16:47] LABS: Anion Gap 5 (5-15); BUN 14 mg/dL (7-18); Calcium,Total 9.4 mg/dL (8.5-10.1); Chloride 106 mmol/L (98-107); Creatinine, Serum 0.82 mg/dL (0.55-1.02); EST Glomerular Filtration Rate 74 mL/min (>60); Est Glom Filt Rate - Afr Amer 89 mL/min (>60); Estimated Creatinine Clearance 63.18 ml/min; Glucose 98 mg/dL (74-106); Potassium 3.7 mmol/L (3.5-5.1); Sodium Level 141 mmol/L (136-145); Troponin-I HS (w/2H Reflex) < 3 pg/mL (3.0-54.0)
[2022-05-28 17:29] VITALS: BP 115/96; PULSE 73; RESP 15; O2SAT 96; O2SAT 98
[2022-05-28 18:16] LABS: Reflex Troponin-HS? (from REC) Y
[2022-05-28 18:27] VITALS: BP 141/95; PULSE 81; RESP 12; O2SAT 100
[2022-05-28 19:12] LABS: Troponin-I HS 4 pg/mL (3.0-54.0)
[2022-05-28 19:31] VITALS: BP 133/82; PULSE 88; RESP 15; O2SAT 98
== END 2022-05-28 19:33 | disposition home or self-care (01) ==
PROVIDERS: Emergency Provider Emergency Medicine; PCP Internal Medicine; Visit Provider Emergency Medicine
DX: R07.89 Other chest pain (principal); K21.9 Gastro-esophageal reflux disease without esophagitis; Z86.73 Personal history of transient ischemic attack (TIA), and cerebral infarction without residual deficits; Z82.49 Family history of ischemic heart disease and other diseases of the circulatory system
CPT/HCPCS: 36415; 71045; 80048; 84484; 85025; 93005; 99285; A4216

== ENCOUNTER → 2022-10-01 | Outpatient (CLI) | payer MEDICARE, BC, SELFPAY ==
--- NOTE | 2022-10-01 14:20 | BI_ITS ---
MAMMOGRAPHY - BILATERAL SCREENING REASON FOR EXAM: Female, 66 years old. Routine annual screening examination. PERTINENT HISTORY: Non-contributory. TECHNIQUE: Digital bilateral breast mumtaz (3D mammographic acquisition) in the CC and MLO projections. 2-D mediolateral oblique (MLO) and craniocaudad (CC) views of both breasts were obtained. CAD: Full Field Digital Mammography with Computer Added Detection was performed. COMPARISON: 09/28/2021, 09/09/2020. FINDINGS: Breast Composition: The breasts are heterogeneously dense, which may obscure small masses. There are no dominant masses or suspicious calcifications. Stable benign-appearing bilateral axillary lymph nodes. No other significant abnormalities are identified. There has been no significant change since the prior study. BI/SCRN MAMM (CAD)W/MUMTAZ BILAT IMPRESSION: Stable bilateral screening mammogram. Yearly follow-up mammogram recommended. (A) ASSESSMENT CATEGORY: BIRADS Category 2: Benign. A letter regarding these results will be sent to the patient by the facility within 30 days. Approximately 10% of breast cancers are not detected by mammography. A normal mammogram should not delay biopsy of a clinically suspicious abnormality. Electronically Signed: Mac Degroot, at 14:48 EST ,
== END | disposition home or self-care (01) ==
LOC: OPBI 14:18
PROVIDERS: PCP Internal Medicine; Visit Provider Nurse Practitioner Women's Health
DX: Z12.31 Encounter for screening mammogram for malignant neoplasm of breast (principal)
CPT/HCPCS: 77063; 77067

== ENCOUNTER → 2022-10-12 | Outpatient (CLI) | payer MEDICARE, BC, SELFPAY ==
[2022-10-12 16:06] LABS: Mucous, Urine 0 SEEN /hpf (<or=2+); Squamous Epithelial Cells - UA 0 SEEN /hpf (5-10)
[2022-10-12 16:37] LABS: Color, Urine Yellow (Yellow); Glucose, Dipstick Normal (Normal); Ketone-Dipstick Negative (Negative); Leukocyte Esterase-Dipstick 25 /ul (Negative); Nitrite-Dipstick Negative (Negative); Occult Blood-Urine 50 /ul (Negative); Protein-Dipstick 15 mg/dl (Negative); Urine Bilirubin Dipstick Negative (Negative); Urine Clarity Clear (Clear); Urine Urobilinogen Normal (Normal); Urine pH 6.5 (5.0 - 8.0)
[2022-10-12 16:45] LABS: Bacteria RARE /hpf (None Seen); Red Blood Cells-Urine 0-5 SEEN /hpf (0-5); White Blood Cells 0-5 SEEN /hpf (0-5)
== END | disposition home or self-care (01) ==
LOC: LABSPEC 16:05
PROVIDERS: Referring Provider Physician Assistant; Visit Provider Physician Assistant
DX: R39.9 Unspecified symptoms and signs involving the genitourinary system (principal)
CPT/HCPCS: 81001; 87077; 87086; 87088; 87186

== ENCOUNTER → 2023-05-02 | Outpatient (CLI) | payer MEDICARE, BC, SELFPAY ==
[2023-05-02 17:11] LABS: Absolute Lymphocyte Count 1.29 X10^3/uL (0.83-4.51); Absolute Neutrophil Count 4.7 X10^3/uL (2.0-7.7); Basophil# 0.04 X10^3/uL; Basophil% 0.6 % (0-1); Eosinophils% 1.5 % (0-5); Hematocrit 44.7 % (37-47); Hemoglobin 13.9 g/dL (12.0-15.0); Lymphocyte # 1.29 X10^3/ul (0.83-4.51); Lymphocyte % 19.9 % (19-41); Mean Corp Hgb Conc 31.1 g/dL (32-36); Mean Corpuscular Hgb 29.6 pg (27.0-32.0); Mean Corpuscular Volume 95.1 fL (81-99); Mean Platelet Vol. 10.9 fl (6.2-12.0); Monocyte# 0.36 X10^3/uL; Monocyte% 5.6 % (0-10); NRBC Flagged by Analyzer 0 % (0-5); Neutrophil # 4.67 X10^3/uL (2.7-7.7); Neutrophil % 72.2 % (47-70); Platelet Count 251 K/mm3 (150-450); RBC Distribution Width CV 13.6 % (11.6-14.6); RBC Distribution Width SD 48.1 fl (35.1-43.9); White Blood Count 6.5 K/mm3 (4.4-11.0)
[2023-05-02 17:49] LABS: Vitamin D,25 Hydroxy 39.8 ng/mL
[2023-05-02 17:54] LABS: ALB/GLOB Ratio 1.1 RATIO (0.9-2.4); AST(SGOT) 23 U/L (15-37); Alanine Aminotransfer ALT/SGPT 25 U/L (13-56); Alkaline Phosphatase 83 U/L (45-117); Anion Gap 4 (5-15); BUN 14 mg/dL (7-18); BUN/Creat Ratio 22.3 RATIO (10-20); Calcium,Total 9.3 mg/dL (8.5-10.1); Chloride 107 mmol/L (98-107); Cholesterol 199 mg/dL (200); Creatinine, Serum 0.63 mg/dL (0.55-1.02); EST Glomerular Filtration Rate 100 mL/min (>60); Est Glom Filt Rate - Afr Amer 122 mL/min (>60); Globulin 3.6 g/dL (2.2-4.2); Glucose 96 mg/dL (74-106); High Density Lipoprotein 76 mg/dL; Potassium 4.2 mmol/L (3.5-5.1); Protein, Total 7.6 g/dL (6.4-8.2); Sodium Level 142 mmol/L (136-145); Thyroid Stim Hormone (TSH) 1.69 uIU/mL (0.358-3.74); Triglycerides 104 mg/dL; Very Low Density Lipoprotein 21 mg/dL (5-40)
== END | disposition home or self-care (01) ==
LOC: LAB 16:45
PROVIDERS: Referring Provider Internal Medicine; Visit Provider Internal Medicine
DX: R00.2 Palpitations (principal); R03.0 Elevated blood-pressure reading, without diagnosis of hypertension; R07.9 Chest pain, unspecified; Z13.220 Encounter for screening for lipoid disorders; E55.9 Vitamin D deficiency, unspecified
CPT/HCPCS: 36415; 80053; 80061; 82306; 84443; 85025

== ENCOUNTER → 2023-05-17 | Outpatient (CLI) | payer MEDICARE, BC, SELFPAY ==
--- NOTE | 2023-05-19 15:04 | STRESSREP ---
Stress Test Report Date: 05/17/2023 Procedure: Exercise tolerance test Indications: Hypertension Consent: Per the patient Procedure: The patient exercised on a Carlitos protocol for 3 minutes achieving a peak heart rate of 153 bpm (100% predicted maximal heart rate) with a peak blood pressure 170/94 mmHg and a peak MET capacity of approximately 4.6 MET's. The baseline ECG demonstrated sinus rhythm. The peak exercise ECG demonstrated sinus tachycardia with no significant ischemic changes. [There were no cardiac dysrhythmias pretest, during exercise, or recovery]. The functional capacity was considered decreased for age. The patient had no complaint of chest discomfort during exercise or recovery. The examination was discontinued secondary to dyspnea, achieving target heart rate. Impression: 1. Technically adequate (percent predicted maximal heart rate greater than 85%) exercise tolerance test 2. Stress test is negative for exercise-induced chest pain. 3. Stress test test is negative for exercise-induced EKG changes of ischemia. 4. Functional capacity is decreased for age This note was generated with [employer] software. It may contain incorrect words, spelling, and punctuation that were not noted in checking the note before signing.
== END | disposition home or self-care (01) ==
PROVIDERS: PCP Internal Medicine; Referring Provider Internal Medicine; Visit Provider Internal Medicine
DX: R07.9 Chest pain, unspecified (principal); I10 Essential (primary) hypertension
CPT/HCPCS: 93017

== ENCOUNTER → 2023-05-29 | Outpatient (CLI) | payer MEDICARE, BC, SELFPAY ==
--- NOTE | 2023-05-29 12:55 | US_ITS ---
STUDY: ULTRASOUND OF THE FEMALE PELVIS - COMPLETE REASON FOR EXAM: Female, 67 years old. postmenopausal bleeding LMP: TECHNIQUE: Transabdominal and transvaginal TECHNICAL QUALITY: Adequate. COMPARISON: None. FINDINGS: The uterus is anteverted and is in a midline position. The uterus measures 6.14 x 3.34 x 4.51 cm c. Normal uterine cervix. The endometrium measures 2 mm in thickness, and is heterogeneous. There is no demonstrated endometrial mass. Small hyperechoic density in the posterior fundus measuring 1.4 x 0.7 cm possibly calcified fibroid.. I.U.D. - The patient does not have an I.U.D. The right ovary is visualized. The right ovary measures 2.5 x 2.4 x 1.9 cm. Small cyst measuring 1.4 x 1.4 x 1.1 cm. There is no visualized right adnexal mass or complex lesion. There is normal arterial and normal venous vascularity. Normal left ovary not visualized due to patient body habitus. No adnexal mass.. There is no fluid in the cul-de-sac. The pre void volume of the bladder was 326.76 ml. US/Pelvic (Non ) IMPRESSION: Question small calcified intrauterine fibroid. Small right ovarian cyst measuring 1.4 x 1.4 x 1.1 cm No other significant abnormality Electronically Signed: Jose A Rust MD at 19:52 EDT ,
== END | disposition home or self-care (01) ==
LOC: US 12:55
PROVIDERS: PCP Internal Medicine; Referring Provider Obstetrics & Gynecology; Visit Provider Obstetrics & Gynecology
DX: N95.0 Postmenopausal bleeding (principal)
CPT/HCPCS: 76830; 76856

== ENCOUNTER → 2023-10-28 | Outpatient (CLI) | payer MEDICARE, BC, SELFPAY ==
--- NOTE | 2023-10-28 13:31 | BI_ITS ---
MAMMOGRAPHY - BILATERAL SCREENING REASON FOR EXAM: Female, 67 years old. Routine annual screening examination. PERTINENT HISTORY: Non-contributory. TECHNIQUE: Digital bilateral breast mumtaz (3D mammographic acquisition) in the CC and MLO projections. 2-D mediolateral oblique (MLO) and craniocaudad (CC) views of both breasts were obtained. CAD: Full Field Digital Mammography with Computer Added Detection was performed. COMPARISON: Comparison is made with prior study dated October 01, 2022 and September 28, 2021. FINDINGS: Breast Composition: The breasts are heterogeneously dense, which may obscure small masses. There are no dominant masses or suspicious calcifications. Stable benign-appearing bilateral axillary lymph nodes. No other significant abnormalities are identified. There has been no significant change since the prior study. BI/SCRN MAMM (CAD)W/MUMTAZ BILAT IMPRESSION: Stable bilateral screening mammogram. Yearly follow-up mammogram recommended. (A) ASSESSMENT CATEGORY: BIRADS Category 2: Benign. A letter regarding these results will be sent to the patient by the facility within 30 days. Approximately 10% of breast cancers are not detected by mammography. A normal mammogram should not delay biopsy of a clinically suspicious abnormality. [id number] Electronically Signed: Surinder Mercedes MD at 14:06 EST ,
== END | disposition home or self-care (01) ==
LOC: OPBI 13:30
PROVIDERS: PCP Internal Medicine; Referring Provider Obstetrics & Gynecology; Visit Provider Obstetrics & Gynecology
DX: Z12.31 Encounter for screening mammogram for malignant neoplasm of breast (principal)
CPT/HCPCS: 77063; 77067

== ENCOUNTER → 2024-10-29 | Outpatient (CLI) | payer MEDICARE, BC, SELFPAY ==
--- NOTE | 2024-10-29 13:00 | BI_ITS ---
MAMMOGRAPHY - BILATERAL SCREENING REASON FOR EXAM: Female, 68 years old. Routine annual screening examination. PERTINENT HISTORY: Non-contributory. TECHNIQUE: Digital bilateral breast mumtaz (3D mammographic acquisition) in the CC and MLO projections. 2-D mediolateral oblique (MLO) and craniocaudad (CC) views of both breasts were obtained. CAD: Full Field Digital Mammography with Computer Added Detection was performed. COMPARISON: Comparison is made with prior study dated October 28, 2023 and October 01, 2022. FINDINGS: Breast Composition: The breasts are heterogeneously dense, which may obscure small masses. There are no dominant masses or suspicious calcifications. Stable small benign appearing bilateral axillary lymph nodes. No other significant abnormalities are identified. There has been no significant change since the prior study. BI/SCRN MAMM (CAD)W/MUMTAZ BILAT IMPRESSION: Stable bilateral screening mammogram. Yearly follow-up mammogram recommended. (A) ASSESSMENT CATEGORY: BIRADS Category 2: Benign. A letter regarding these results will be sent to the patient by the facility within 30 days. Approximately 10% of breast cancers are not detected by mammography. A normal mammogram should not delay biopsy of a clinically suspicious abnormality. [id number] Electronically Signed: Surinder Mercedes MD at 14:46 EST ,
== END | disposition home or self-care (01) ==
LOC: OPBI 13:00
PROVIDERS: PCP Internal Medicine; Referring Provider Nurse Practitioner Women's Health; Visit Provider Nurse Practitioner Women's Health
DX: Z12.31 Encounter for screening mammogram for malignant neoplasm of breast (principal)
CPT/HCPCS: 77063; 77067

== ENCOUNTER → 2024-11-18 | Outpatient (CLI) | payer MEDICARE, BC, SELFPAY | END | disposition home or self-care (01) | LOC: LABSPEC 14:58 | PROVIDERS: PCP Internal Medicine; Referring Provider Physician Assistant; Visit Provider Physician Assistant | DX: R10.2 Pelvic and perineal pain (principal) | CPT/HCPCS: 87086 ==

== ENCOUNTER → 2025-08-23 | Outpatient (CLI) | payer MEDICARE, BC, SELFPAY ==
[2025-08-23 12:45] LABS: Hematocrit 44.1 % (37-47); Hemoglobin 14.1 g/dL (12.0-15.0); Immature Granulocytes Count 0.010 X10^3/uL (0.0-0.0); Mean Corp Hgb Conc 32.0 g/dL (32-36); Mean Corpuscular Volume 94.2 fL (81-99); Mean Platelet Vol. 11.2 fl (6.2-12.0); NRBC Flagged by Analyzer 0 % (0-5); Platelet Count 246 K/mm3 (150-450); RBC Distribution Width CV 13.7 % (11.6-14.6); RBC Distribution Width SD 47.6 fl (35.1-43.9); Red Blood Count 4.68 M/mm3 (4.2-5.4); White Blood Count 4.4 K/mm3 (4.4-11.0)
[2025-08-23 14:59] LABS: AST(SGOT) 27 U/L (<=31); Alanine Aminotransfer ALT/SGPT 22 U/L (<=34); Albumin, Serum 4.3 g/dL (3.4-4.8); Alkaline Phosphatase 83 U/L (35-104); Anion Gap 8 (5-15); BUN 19 mg/dL (4-19); BUN/Creat Ratio 29.1 RATIO (10-20); Calcium,Total 9.6 mg/dL (7.6-11.0); Carbon Dioxide 27.3 mmol/L (21.0-32.0); Chloride 104 mmol/L (98-108); Cholesterol 197 mg/dL (<=200); Globulin 2.8 g/dL (2.2-4.2); Glucose 94 mg/dL (70-99); Low Density Lipoprotein Calc. 106 mg/dL; Magnesium 2.5 mg/dL (1.5-2.2); Potassium 4.3 mmol/L (3.3-5.1); Triglycerides 78 mg/dL; Very Low Density Lipoprotein 16 mg/dL (5-40); Vitamin B12 808 pg/mL (180-914); Vitamin D,25 Hydroxy 27.3 ng/mL (30-100); cholesterol:hdl ratio screen 2.61
== END | disposition home or self-care (01) ==
LOC: LAB 12:02
PROVIDERS: PCP Internal Medicine; Referring Provider Internal Medicine; Visit Provider Internal Medicine
DX: I10 Essential (primary) hypertension (principal); R00.2 Palpitations; K21.9 Gastro-esophageal reflux disease without esophagitis; E55.9 Vitamin D deficiency, unspecified; Z13.220 Encounter for screening for lipoid disorders
CPT/HCPCS: 36415; 80053; 80061; 82306; 82607; 83735; 84443; 85025

== ENCOUNTER 2025-10-22 08:27 | Day surgery (SDC) | payer MEDICARE, BC, SELFPAY ==
--- NOTE | 2025-10-20 17:02 | PAT.ANESEVAL ---
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 When Was Last Pacemaker Check QUESTION #4 FULL TEXT: You/Your Family Experience fever (hyperthermia) with Anesthesia Last Oral Intake Last Oral intake: Last Oral Intake NPO since Meds taken in AM with sips of water? Meds patient instructed to take am of surgery PONV PONV - herbarium worker: PONV - herbarium worker Female Yes 10/20/25 13:06 HX of Motion Sickness No 10/20/25 13:06 HX of N/V After Surgery No 10/20/25 13:06 Non-Smoker Yes 10/20/25 13:06 Duration of Surgery greater No 10/20/25 13:06 than 60 minutes Number of Risk Factors 2 10/20/25 13:06 PONV Score Moderate Risk 10/20/25 13:06 Height & Weight Height & Weight: Anesthesia: Height & Weight Height 5 ft 7 in 08/18/25 11:41 Respiratory Assessment Respiratory Assessment - herbarium worker: Respiratory Tract Infection Hx - herbarium worker Hx Respiratory Tract Infection No 10/20/25 13:06 STOP Sleep Apnea STOP Sleep Apnea - herbarium worker: STOP Sleep Apnea - herbarium worker Hx Hypertension No 10/20/25 13:06 Hx Sleep Apnea No 10/20/25 13:06 CPAP BIPAP Do you snore loudly (louder No 10/20/25 13:06 than talking or can be heard Do you often feel tired/ No 10/20/25 13:06 fatigued/ sleepy during daytime? Has anyone observed you stop No 10/20/25 13:06 breathing during sleep? STOP Results Negative 10/20/25 13:06 QUESTION #5 FULL TEXT : Do you snore loudly (louder than talking or can be heard through closed doors)? Tobacco Use History Tobacco Use History - herbarium worker: Tobacco Use History - herbarium worker Tobacco Use Smoking Status Never smoker 10/20/25 13:06 Hx Tobacco Use No 10/20/25 13:06 Years Smoking Packs Smoked per Day Smoking Cessation Date was within the last 15 years Hx Smoking Cessation Date Hx Smoking Cessation No 10/20/25 13:06 Counseling Hematologic Medial History Hematologic Hx - herbarium worker: Hematologic Medical Hx - yarrow gatherer Hx of Blood Transfusion No 10/20/25 13:06 Hx of Transfusion in last 3 No 10/20/25 13:06 Months Date of Last Transfusion (if within last 3 months) Ever experience any problems No 10/20/25 13:06 with transfusion(s)? Specify any problems Hx of Preganancy in last 3 No 10/20/25 13:06 Months Nurse Filling Out Transfusion [id number] 10/20/25 13:06 & Questions: Date: 10/20/25 10/20/25 13:06 Time: 13:10 10/20/25 13:06 Patient unable to answer at this time (ie. confused, unrespo /Reproduction History /Reproductive History - herbarium worker: /Reproductive Hx- herbarium worker Hx Now Gestational Age (in weeks): EDC: Hx Hx Para Hx Section SAB No 10/21/24 14:50 Does the father of the baby or his family experience fever w Father of the baby Malignant Hypertension history comment [facility] Medical History Alcohol use Heartburn Leg cramps Non-smoker History of echocardiogram History of stress test History of Holter monitoring History of irregular heartbeat Colon cancer screening Contact with and (suspected) exposure to other viral communicable diseases Elevated BP without diagnosis of hypertension Home Medications ?Medication ?Instructions ?Recorded ?Last Taken ?Type calcium 600 mg (as 1 cap PO DAILY supplement 02/28/18 01/03/20 History carbonate)-vitamin D3 10 mcg (400 unit) capsule (Calcium with Vitamin D3) biotin 800 mcg tablet 800 mcg PO DAILY 05/02/23 Unknown History lutein 20 mg capsule See Rx Instructions PO DAILY 10/16/23 Unknown History estradiol 0.01% (0.1 mg/gram) See Rx Instructions vaginal 2XW 10/21/24 Unknown History vaginal cream twtcgxih-uqd-avwvh 80 mcg-lutein 1 tab PO DAILY 10/20/25 Unknown History 166.7 mcg-herbal 66.7 mg chew tablet (Alive Men's 50 Plus Premium) timolol maleate 0.5 % eye drops 1 drp ophthalmic (eye) BID 10/20/25 Unknown History Allergy/AdvReac Type Severity Reaction Status Date / Time Penicillins Allergy Mild rash Verified 10/20/25 13:05 Family History Brother Bladder cancer Mother Uterine cancer Father Heart disease Myocardial infarction Surgical History S/P colonoscopy S/P laser cataract surgery H/O: Social History Smoking Status: Never smoker alcohol intake: current details: 3 times per week (wine) substance use type: does not use caffeine: Yes what type of physical activity do you participate in: none seatbelt use: always do you feel safe at home: Yes 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 Recommendation Anesthesia Recommendation Anesthesia recommendation: OPTIMIZED for anesthesia
[2025-10-22] VITALS (7 sets, daily range): BP systolic 94–135; BP diastolic 62–93; PULSE 74–80; RESP 16; TEMP 36.1–36.6; O2SAT 96–100
[2025-10-22] MEDS: Lactated Ringers 1,000 ML 15 ML IV (08:58)
--- NOTE | 2025-10-22 09:12 | PCM.PRE.AN2 ---
ASA Classification* ASA Classification ASA Classification: 2 Assessment & Plan Anesthesia* Anesthesia Assessment Anesthesia Assessment: Discussed sedation and/or anesthesia options, risks, benefits, and alternatives with patient/parents/legal guardian/POA. Questions invited. The patient/parents/legal guardian/POA seems to understand and agrees to proceed with anesthesia plan. Reviewed the physical assessment, medical history, allergy history and patient home medications list prior to surgery/procedure/anesthetic and documented any changes. Performed airway and anesthesia risk assessments. Anesthesia Type Anesthesia Type: MAC Anesthesia Focused Assessment* Temperature: 98 F Pulse Rate: 74 Blood Pressure: 135/78 Respiratory Rate: 16 Pulse Ox: 98 Airway Assessment Mouth opens: >3 cm Mallampati Score: II Labs Anesthesia Preop lab: CBC WBC, (4.4-11.0) 4.4 K/mm3 08/23/25, 12:06 RBC, (4.2-5.4) 4.68 M/mm3 08/23/25, 12:06 Hgb, (12.0-15.0) 14.1 g/dL 08/23/25, 12:06 Hct, (37-47) 44.1 % 08/23/25, 12:06 Plt Count, (150-450) 246 K/mm3 08/23/25, 12:06 CHEMISTRY Potassium, (3.3-5.1) 4.3 mmol/L 08/23/25, 12:06 Sodium, (133-145) 139 mmol/L 08/23/25, 12:06 Magnesium, (1.5-2.2) 2.5 mg/dL H 08/23/25, 12:06 BUN, (4-19) 19 mg/dL 08/23/25, 12:06 Creatinine, (0.70-1.20) 0.65 mg/dL L 08/23/25, 12:06 Glucose, (70-99) 94 mg/dL 08/23/25, 12:06 TSH, (0.300-4.200) 0.903 uIU/mL 08/23/25, 12:06 COAG PT, (11.7-14.9) 13.1 SECONDS 10/22/18, 20:50 Pre-Assessment Diagnosis/Proposed Procedure Planned Operative Procedure(s): COLONOSCOPY Anesthesia History Anesthesia History - toolroom attendant: Anesthesia History - toolroom attendant Hx Hospitalization No 10/20/25 13:06 Any Problems With Anesthesia Yes: NAUSEA AFTER CSECTION 10/20/25 13:06 Cholinesterase deficiency No 10/20/25 13:06 You/Your Family Experience No 10/20/25 13:06 fever (hyperthermia) with Relationship Recent Exposure to Contagious No 10/22/25 08:55 Disease Does patient have nerve No 10/20/25 13:06 stimulator Patient instructed to have device shut off --Does patient have Pacemaker No 10/22/25 08:55 or ICD? When Was Last Pacemaker Check QUESTION #4 FULL TEXT: You/Your Family Experience fever (hyperthermia) with Anesthesia Last Oral Intake Last Oral intake: Last Oral Intake NPO since 00:00 10/22/25 08:55 Meds taken in AM with sips of water? Meds patient instructed to take am of surgery PONV PONV - toolroom attendant: PONV - toolroom attendant Female Yes 10/20/25 13:06 HX of Motion Sickness No 10/20/25 13:06 HX of N/V After Surgery No 10/20/25 13:06 Non-Smoker Yes 10/20/25 13:06 Duration of Surgery greater No 10/20/25 13:06 than 60 minutes Number of Risk Factors 2 10/20/25 13:06 PONV Score Moderate Risk 10/20/25 13:06 Height & Weight Height & Weight: Anesthesia: Height & Weight Height 5 ft 7 in 10/22/25 08:55 Weight: 58 kg 10/22/25 08:55 Body Mass Index (BMI) 20.0 10/22/25 08:55 Respiratory Assessment Respiratory Assessment - toolroom attendant: Respiratory Tract Infection Hx - toolroom attendant Hx Respiratory Tract Infection No 10/20/25 13:06 STOP Sleep Apnea STOP Sleep Apnea - toolroom attendant: STOP Sleep Apnea - toolroom attendant Hx Hypertension No 10/20/25 13:06 Hx Sleep Apnea No 10/20/25 13:06 CPAP BIPAP Do you snore loudly (louder No 10/20/25 13:06 than talking or can be heard Do you often feel tired/ No 10/20/25 13:06 fatigued/ sleepy during daytime? Has anyone observed you stop No 10/20/25 13:06 breathing during sleep? STOP Results Negative 10/20/25 13:06 QUESTION #5 FULL TEXT : Do you snore loudly (louder than talking or can be heard through closed doors)? 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 Specify any problems Hx of Preganancy in last 3 No 10/20/25 13:06 Months Nurse Filling Out Transfusion [email or web address] 10/20/25 13:06 & Questions: Date: 10/20/25 10/20/25 13:06 Time: 13:10 10/20/25 13:06 Patient unable to answer at this time (ie. confused, unrespo /Reproduction History /Reproductive History - toolroom attendant: /Reproductive Hx- toolroom attendant Hx Now Gestational Age (in weeks): EDC: Hx Hx Para Hx Section SAB No 10/21/24 14:50 Does the father of the baby or his family experience fever w Father of the baby Malignant Hypertension history comment Active Medications Active Medications: Current Medications Generic Name Dose Route Start Last Admin Trade Name Freq PRN Reason Stop Dose Admin Lactated Ringer's 1,000 mls @ 15 mls/hr 10/22/25 08:45 10/22/25 08:58 IV 15 mls/hr .Q48H TL Administration PFSH Medical History Alcohol use Heartburn Leg cramps Non-smoker History of echocardiogram History of stress test History of Holter monitoring History of irregular heartbeat Colon cancer screening Contact with and (suspected) exposure to other viral communicable diseases Elevated BP without diagnosis of hypertension Home Medications ?Medication ?Instructions ?Recorded ?Last Taken ?Type calcium 600 mg (as 1 cap PO DAILY supplement 02/28/18 01/03/20 History carbonate)-vitamin D3 10 mcg (400 unit) capsule (Calcium with Vitamin D3) biotin 800 mcg tablet 800 mcg PO DAILY 05/02/23 Unknown History lutein 20 mg capsule See Rx Instructions PO DAILY 10/16/23 Unknown History estradiol 0.01% (0.1 mg/gram) See Rx Instructions vaginal 2XW 10/21/24 Unknown History vaginal cream pvcbslpp-[id number] 80 mcg-lutein 1 tab PO DAILY 10/20/25 Unknown History 166.7 mcg-herbal 66.7 mg chew tablet (Alive Men's 50 Plus Premium) timolol maleate 0.5 % eye drops 1 drp ophthalmic (eye) BID 10/20/25 Unknown History Allergy/AdvReac Type Severity Reaction Status Date / Time Penicillins Allergy Mild rash Verified 10/22/25 08:55 Family History Brother Bladder cancer Mother Uterine cancer Father Heart disease Myocardial infarction Surgical History S/P colonoscopy S/P laser cataract surgery H/O: Social History Smoking Status: Never smoker alcohol intake: current details: 3 times per week (wine) substance use type: does not use caffeine: Yes what type of physical activity do you participate in: none seatbelt use: always do you feel safe at home: Yes 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
--- NOTE | 2025-10-22 09:13 | H&P.OPEN ---
HPI - General HPI Narrative DIDIER DELCID, is a 69 F who presents for screening colonoscopy. Her last colonoscopy was in 2011. She denies abdominal pain or blood in the stool. No family history of colon cancer. [facility] Medical History Alcohol use Heartburn Leg cramps Non-smoker History of echocardiogram History of stress test History of Holter monitoring History of irregular heartbeat Colon cancer screening Contact with and (suspected) exposure to other viral communicable diseases Elevated BP without diagnosis of hypertension Home Medications ?Medication ?Instructions ?Recorded ?Last Taken ?Type calcium 600 mg (as 1 cap PO DAILY supplement 02/28/18 01/03/20 History carbonate)-vitamin D3 10 mcg (400 unit) capsule (Calcium with Vitamin D3) biotin 800 mcg tablet 800 mcg PO DAILY 05/02/23 Unknown History lutein 20 mg capsule See Rx Instructions PO DAILY 10/16/23 Unknown History estradiol 0.01% (0.1 mg/gram) See Rx Instructions vaginal 2XW 10/21/24 Unknown History vaginal cream [id number]-[id number] 80 mcg-lutein 1 tab PO DAILY 10/20/25 Unknown History 166.7 mcg-herbal 66.7 mg chew tablet (Alive Men's 50 Plus Premium) timolol maleate 0.5 % eye drops 1 drp ophthalmic (eye) BID 10/20/25 Unknown History Allergy/AdvReac Type Severity Reaction Status Date / Time Penicillins Allergy Mild rash Verified 10/22/25 08:55 Family History Brother Bladder cancer Mother Uterine cancer Father Heart disease Myocardial infarction Surgical History S/P colonoscopy S/P laser cataract surgery H/O: Social History Smoking Status: Never smoker alcohol intake: current details: 3 times per week (wine) substance use type: does not use caffeine: Yes what type of physical activity do you participate in: none seatbelt use: always do you feel safe at home: Yes 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, 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[employer], 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 Past Medical/Surgical History Planned Operation Planned Operative Procedure(s): COLONOSCOPY Previous Hospitalizations/Surgeries HX Hospitalizations: No Any Problems With Anesthesia: Yes (NAUSEA AFTER CSECTION) You/Your Family Experience Fever (Hyperthermia) With Anes: No Cholinesterase deficiency: No Cardiovascular Hx Chest Pain within Last 2 months: No Hx of Irregular Heartbeat and/or Afib: No Hx Heart Attack: No Hx Hypertension: No Hx Cardiac Surgery/Stents/Etc.: No Hx Pain in Legs when Walking/Leg Cramps: No Respiratory Hx Chronic Obstructive Pulmonary Disease (COPD): No Hx Asthma: No Hx Emphysema: No Hx Sleep Apnea: No Hx Respiratory Tract Infection/Cold (presently): No Do You Snore Loudly (louder than talking or can be heard): No Do You Often Feel Tired/ Fatigued/ Sleepy Dring Daytime?: No Has Anyone Observed You Stop Breathing During Sleep?: No Result (for STOP score): Negative Hx Smoking: No Smoking Status: Never smoker Gastrointestinal Hx Gastrointestinal Bleed: No Hx Ulcer: No Difficulty Chewing/Swallowing: No Hx Unplanned Weight Loss of 20#: No Neurological Hx Seizures: No Hx Transient Ischemic Attacks (TIA): No Hx Multiple Sclerosis: No Hx Parkinson's Disease: No Does patient have nerve stimulator: No Blood Disorder Hx Deep Vein Thrombosis: No Hx Hepatitis: No Hx Cirrhosis: No Hx Anemia: No Hx Blood Disorders: No Genitourinary Hx Renal Disease: No Hx Dialysis: No Musculoskeletal Hx Arthritis: No Hx Rheumatoid Arthritis: No Endocrine Hx Diabetes: No Thyroid Disease: No Psycho/Social Hx Substance Use: No Hx Alcohol Use: No Hx Anxiety: No Hx Depression: No Hx Dementia: No Miscellaneous Hx Cancer: No Recent Exposure to Contagious Disease: No Allergies Penicillins Allergy (Mild, Verified 10/22/25 08:55) rash Maternal: Family History Brother Bladder cancer Mother Uterine cancer Father Heart disease Myocardial infarction Cancer (Mother with a history of uterine cancer, age 84.) Paternal: Family History Brother Bladder cancer Mother Uterine cancer Father Heart disease Myocardial infarction - (Father with a history of CAD, [place] initially at age 72, required PCI, currently alive and turning 91.) Discharge Who Could Help: Vital Signs Vital Signs Vital Signs: 10/22/25 08:55 10/22/25 08:55 10/22/25 08:55 Temperature 98 F Temperature Source Temporal Pulse Rate 74 Respiratory Rate 16 Respiratory Pattern Normal Blood Pressure 135/78 H Blood Pressure Mean 97 Blood Pressure Source Monitor Blood Pressure Position Semi-Fowlers Blood Pressure Location Left Arm Baseline BP 135/78 Pulse Ox 98 Oxygen Delivery Method Room Air 10/22/25 09:12 Temperature 98 F Temperature Source Pulse Rate 74 Respiratory Rate 16 Respiratory Pattern Blood Pressure 135/78 H Blood Pressure Mean Blood Pressure Source Blood Pressure Position Blood Pressure Location Baseline BP Pulse Ox 98 Oxygen Delivery Method Weight Weight: 127 lb 13.89 oz Body Mass Index (BMI) 20.0 Physical Exam Const alert and oriented x3 HEENT normocephalic Eyes PERRL Resp normal respiratory effort and normal air movement Cardio regular rate and regular rhythm GI soft to palpation, non-tender and non-distended Extremity normal to inspection Assessment & Plan Assessment/Plan (1) Colon cancer screening: PLAN: I explained endoscopy in detail to the patient. I explained the risks including but not limited to stroke or heart attack with anesthesia, perforation of the GI tract, bleeding, infection. I explained that any of these could necessitate further emergency surgery. The patient understands and all questions were answered sufficiently. The patient wishes to proceed with procedure. Vazquez Amador MD Pager: [facility] [address] [place] [address], [address] [place] [phone] Office: Surgery Risks - Colonoscopy Risks Include but are not Limited To: Risks include but are not limited to: Bleeding, perforation requiring further surgery, inability to complete colonoscopy requiring barium enema.
--- NOTE | 2025-10-22 09:52 | OP.COLON_ITS ---
Patient Name: Antonella Thapa Procedure Date: 10/22/2025 9:17 AM Date of : 1955 Age: 69 Procedure: Colonoscopy Indications: Screening for colorectal malignant neoplasm Providers: Vazquez Amador MD Referring MD: Jolie Sheehan Medicines: Propofol per Anesthesia Patient Profile: This is a 69 year old female. Refer to note in patient chart for documentation of history and physical. Last Colonoscopy: more than 10 years ago. Complications: No immediate complications. Procedure: Pre-Anesthesia Assessment: - Prior to the procedure, a History and Physical was performed, and patient medications and allergies were reviewed. The patient's tolerance of previous anesthesia was also reviewed. The risks and benefits of the procedure and the sedation options and risks were discussed with the patient. All questions were answered, and informed consent was obtained. Prior Anticoagulants: The patient has taken no anticoagulant or antiplatelet agents. After reviewing the risks and benefits, the patient was deemed in satisfactory condition to undergo the procedure. After I obtained informed consent, the scope was passed under direct vision. Throughout the procedure, the patient's blood pressure, pulse, and oxygen saturations were monitored continuously. The Colonoscope was introduced through the anus and advanced to the ascending colon. The patient tolerated the procedure well. The quality of the bowel preparation was good. The ileocecal valve, appendiceal orifice, and rectum were photographed. The colonoscopy was technically difficult and complex due to significant looping. Scope In: 9:27:46 AM Scope Withdrawal Time 0 hours 12 minutes 44 seconds Scope Out: 9:49:36 AM Total Procedure Duration Time 0 hours 21 minutes 50 seconds Findings: The entire examined colon appeared normal on direct and retroflexion views. Impression: - The entire examined colon is normal on direct and retroflexion views. - No specimens collected. Recommendation: - Discharge patient to home. - Resume previous diet. - Continue present medications. - Repeat colonoscopy is not recommended due to current age (66 years or older) because the examination was incomplete. Procedure Code(s): --- Professional --- 11992, 53, Colonoscopy, flexible; diagnostic, including collection of specimen(s) by brushing or washing, when performed (separate procedure) Diagnosis Code(s): --- Professional --- Z12.11, Encounter for screening for malignant neoplasm of colon CPT copyright 2021 [employer] [place] [employer]. All rights reserved. The codes documented in this report are preliminary and upon psychotherapist counselor review may be revised to meet current compliance requirements. Vazquez Amador MD 10/22/2025 9:52:02 AM This report has been signed electronically. Number of Addenda: 0 Note Initiated On: 10/22/2025 9:17 AM
--- NOTE | 2025-10-22 09:52 | OP.PROVAT_ITS ---
10/22/2025 Jolie Sheehan [facility] [address] [place] [address] Re : Colonoscopy procedure for Antonella Thapa Dear Dr. Sheehan This procedure was performed on Wednesday, October 22, 2025. My impressions and recommendations are as follows: Impressions : - The entire examined colon is normal on direct and retroflexion views. - No specimens collected. Recommendations : - Discharge patient to home. - Resume previous diet. - Continue present medications. - Repeat colonoscopy is not recommended due to current age (66 years or older) because the examination was incomplete. My findings are described in the full procedure note, which is enclosed. If I can be of further assistance, please feel free to contact me at Doctor phone number(s): , Work: . Sincerely, Vazquez Amador MD 10/22/2025 9:52:02 AM This report has been signed electronically.
--- NOTE | 2025-10-22 09:59 | PCM.POST.ANE ---
Anesthesia: Postop Eval I Current Vital Signs Temperature: 97 F Pulse Rate: 79 Blood Pressure: 98/62 Respiratory Rate: 16 Pulse Ox: 97 Oxygen Delivery Method: Room Air Assessment Airway patent: Yes Spontaneous unlabored respirations: Yes Mental status: Asleep nausea: No Vomiting: No Anesthesia Complication: No Fluid Hydration Crystalloid volume administer (ml): 600 Total IV fluid infused: 600 Progress Note Anesthesia document: Postop Eval 1 completed: Yes
--- NOTE | 2025-10-22 11:37 | PCM.POSTANE2 ---
Anesthesia Postop Eval I Sum Postop Eval Completion status Anesthesia document: Postop Eval 1 completed: Yes Anesthesia Postop Eval I Summary Anesthesia Postop Eval I Summary: Anesthesia Postop Eval I: Assessment Summary Airway patent Yes 10/22/25 10:00 [email or web address] Spontaneous unlabored Yes 10/22/25 10:00 [email or web address] respirations Mental status Asleep 10/22/25 10:00 [email or web address] nausea No 10/22/25 10:00 [email or web address] Vomiting No 10/22/25 10:00 [email or web address] Anesthesia Postop Eval I: Fluid Summary Crystalloid volume administer 600 10/22/25 10:00 [email or web address] (ml) Colloids volume administered ( ml) Blood Product volume administered (ml) Total IV fluid infused 600 10/22/25 10:00 [email or web address] Anesthesia Postop Eval I: Summary Notes Anesthesia Complication No 10/22/25 10:00 [email or web address] Anesthesia Complication Comment: Post-operative progress note Anesthesia: Postop Eval II Evaluation Mental status: Awake Pain Level: 0 nausea: No Vomiting: No
== END 2025-10-22 11:10 | disposition home or self-care (01) ==
LOC: EN 08:27 → AC 08:29
PROVIDERS: PCP Internal Medicine; Referring Provider Internal Medicine; Visit Provider Surgery
PROC: 0DJD8ZZ Inspection of Lower Intestinal Tract, Via Natural or Artificial Opening Endoscopic (ICD-10-PCS; CPT 45378; principal; 2025-10-22 09:25)
DX: Z12.11 Encounter for screening for malignant neoplasm of colon (principal)
CPT/HCPCS: G0121; J2405

== ENCOUNTER 2025-10-25 07:45 | Outpatient (CLI) | payer MEDICARE, BC, SELFPAY ==
--- NOTE | 2025-10-25 07:49 | CT_ITS ---
PROCEDURE: ABDOMEN/PELVIS WITH CONTRAST 10/25/2025 REASON FOR EXAM: INCOMPLETE COLONOSCOPY Mass seen on colonoscopy. TECHNIQUE: Procedure Code: [id number] Modality: CT Procedure: ABDOMEN/PELVIS WITH CONTRAST Coronal and Sagittal reconstruction series were provided. CONTRAST: Isovue 370 VOLUME: 95 mL One or more dose reduction techniques were used (e.g., Automated exposure control, adjustment of the mA and/or kV according to patient size, use of iterative reconstruction technique. RADIATION DOSE SUMMARY: CTDlvol: 10.15 mGy DLP: 492.36 mGycm COMPARISON: None FINDINGS: Lung bases: Pectus excavatum deformity of the chest. Liver: There is a 5.3 cm by 6 cm by 5.2 cm predominantly hypodense mass in the dome of the right lobe of the liver with peripheral enhancement. On the delayed images, this is almost completely opacified. This is suggestive of an hemangioma. An hepatic adenoma may have a similar appearance. Gallbladder: Unremarkable Spleen: Normal size. Pancreas: Normal size without evidence of mass surrounding inflammation or ductal dilation. Adrenals: Unremarkable Kidneys: Normal renal sizes. No hydronephrosis. Bladder: Unremarkable Reproductive Organs: Unremarkable Bowel: Large amount of fecal material is seen in the colon especially in the right hemicolon. Fecal material is also seen in the left hemicolon. Contrast is seen within the rectum. Appendix: The appendix is not identified. There is no inflammatory process identified in the right lower quadrant to suggest appendicitis. Lymph nodes: No suspicious lymph node enlargement. Vasculature: The abdominal aorta and IVC are normal. Peritoneum / Retroperitoneum: Small volume free fluid in the pelvis nonspecific and usually physiologic in a female patient of this age. Bones: Degenerative changes of the spine. CT/Abdomen/Pelvis WITH Contrast IMPRESSION: Findings suggestive of an hemangioma in the right lobe of the liver as describe d. Large amount of fecal material is seen in the colon especially in the right hem icolon. Reading Location: [id number]
--- OUTSIDE RECORDS SUMMARY | 2025-10-25 08:08 | XMS RPT_ITS | CCD ---
Author Organization [facility]iniSyky Care Team Providers Care Overhead Cleaner Name Role Phone Guzman Alcantara MD Primary Care Provider Dr. Guzman Alcantara Primary Care Provider Dr. Jolie Sheehan Attending Provider Dr. Guzman Alcantara Referring Provider Freddy LAND USE PLANNER, LAND USE PLANNER-C Martha Attending Provider ALLA Gill Attending Provider Unavailab Care Physician, No Primary Primary Care Provider Unavailable Dr. Jolie Sheehan Attending Provider Care Physician, No Primary Referring Provider Un available Dr. Lucila Monterroso Attending Provider Dr. Jolie Sheehan Primary Care Provider Dr. Jolie Sheehan Referring Provider Dr. Jolie Sheehan Other Provider Dr. Katy Bello Attending Provider Dr. Jolie Sheehan Referring Provider Dr. Katy Bello Attending Provider Dr. Jolie Sheehan Primary Care Provider Dr. Jolie Sheehan Attending Provider Dr. Jolie Sheehan MD Primary Care Physician [phone] Moustapha ESPINOZA, Dr. Miller Attending Physician Aguila ESPINOZA, Dr. Dave Attending Physician [phone] Freddy LAND USE PLANNER, Martha Attending Unavailable SumterMartha sosa NP Referring Unavailable Jolie Sheehan Primary Care Unavailable Joaquin Garrison Attending Unavailable Joaquin Garrsion Referring Unavailable Jolie Sheehan Primary Care Unavailable Jolie Sheehan Attending Unavailable Jolie Sheehan Referring Unavailable Jolie Sheehan Primary Care Unavailable Vazquez Amador Attending Unavailable Jloie Sheehan Primary Care Unavailable Jolie Sheehan Primary Care Unavailable Joaquin Garrison Attending Unavailable Jolie Sheehan Referring Unavailable Jolie Sheehan Attending Unavailable Jolie Sheehan Primary Care Unavailable Martha Hayes NP Attending Unavailable Jolie Sheehan Primary Care Unavailable Jolie Sheehan Referring Unavailable Allergies Allergy Classification Reported Allergen(s) Allergy Type Date of Onset Reaction(s) Facility (10 sources) Penicillins; Translations: [Penicillins] Allergy to substance 01-15-2006 rash [facility] Medications Current Medications Medication Drug Class(es) Dates Sig (Normalized) Sig (Original) biotin 0.8 mg oral tablet (14 sources) Start: 05-02-2023 take 1 tablet by mouth once daily Biotin 800 mcg tablet Active 800 ug PO DAILY May 02, 2023 12:00am Complies with drug therapy Start: 01-05-2020 End: 05-02-2023 Biotin 10,000 MCG capsule Discontinued 5000 ug PO DAILY January 05, 2020 1:00am May 02, 2023 1:41pm supplement Start: 01-05-2020 End: 05-02-2023 take 5000 ug by mouth once daily Biotin Discontinued 5000 MCG PO DAILY January 05, 2020 12:00am May 02, 2023 12:41pm Start: 11-06-2019 take 0.5 tablet by out once daily Biotin 10 mg tab Take 0.5 tablets by mouth once daily. 0 11/06/2019 Active Comment on above: Take 0.5 tablets by mouth once daily. calcium carbonate 1500 mg / cholecalciferol 0.01 mg oral capsule (8 sources) Vitamin D Start: 02-28-2018 Calcium Carbonate-Vitamin D3 (Calcium 600 With Vitamin D3) 600 mg(1,500mg) -400 unit capsule Active 1 NMA PO DAILY 0 February 28, 2018 12:00am supplement Complies with drug therapy Start: 02-28-2018 take 1 capsule by [facility] once daily Calcium Carbonate-Vitamin D3 (Calcium 600 With Vitamin D3) 600 mg(1,500mg) -400 unit capsule Active 1 CAP PO DAILY February 27, 2018 11:00pm estradiol 0.1 mg/ml vaginal cream (1 source) Estrogen Start: 10-21-2024 Estradiol 0.01 % (0.1 mg/gram) cream Active 0 VAGINAL TWICE A WEEK October 21, 2024 1:00am small amount vaginally twice a week; compounded [facility] Complies with drug therapy gucqkbvzxqf-qsl-lila droit-hrb 149-hyalur 500 mg-500 mg-66.7 mg tablet (7 sources) Start: 02-28-2018 take 1 tablet by mouth once daily yexysmzfxeu-nwg-jsnut roit-hrb 149-hyalur 500 mg-500 mg-66.7 mg tablet Active 1 TABLET PO DAILY February 27, 2018 11:00pm Start: 02-28-2018 take 1 tablet by francesco th once daily haowcsmprio-ckk-ebmtnvlze-hrb 149-hyalur 500 mg-500 mg-66.7 mg tablet Active 1 TABLET PO DAILY February 28, 2018 12:00am latanoprostene bunod 0.24 mg/ml ophthalmic solution (1 source) Start: 08-18-2025 take 0.024 drop(s) into the eye(s) once daily Latanoprostene Bunod (Vyzulta) 0.024 % drops Active 1 NMA OPHTHALMIC daily August 18, 2025 12:00am Complies with drug therapy lutein 20 mg oral capsule (2 sources) Start: 10-16-2023 take 0.5 tablet by mouth once daily Lutein 20 mg capsule Active 0 PO DAILY October 16, 2023 1:00am 1/2 tab orally daily; give with meal/snack Complies with drug therapy Multivitamin preparation (7 sources) Start: 02-28-2018 take 1 tablet by mouth once daily Multivitamin Active 1 TABLET PO daily February 27, 2018 11:00pm Start: 02-28-2018 take 1 tablet by francesco th once daily Multivitamin Active 1 TABLET PO daily February 28, 2018 12:00am Multivitamin tablet (1 source) Start: 02-28-2018 Multivitamin t ablet Active 1 {tbl} PO daily February 28, 2018 12:00am supplement Complies with drug therapy Completed/Discontinued Medications Medication Drug Class(es) Dates Sig (Normalized) Sig (Original) Ca-D3-mag jk-iicf-fam-ashanti-sanjana r (CALCIUM 600+D3 PLUS) 600 mg calcium- 800 unit-50 mg tab (1 source) Ca-D3-mag so-vykg-qpl-ashanti-b or (CALCIUM 600+D3 PLUS) 600 mg calcium- 800 unit-50 mg tab Take by mouth. 0 Active Comment on above: Take by mouth. ciprofloxacin 250 mg oral tablet (6 sources) Quinolone Antimicrobial Start: 10-15-2022 End: 05-02-2023 take 1 tablet by mouth twice daily Ciprofloxacin Hcl (Cipro) 250 mg tablet Discontinued 250 mg PO TWICE A DAY 10 October 15, 2022 1:00am May 02, 2023 1:41pm estrogens, conjugated (half-way) 0.625 mg/ml vaginal cream (20 sources) Estrogen Start: 09-12-2022 End: 05-02-2023 Conjugated Estrogens (Premarin) 0.625 mg/gram cream Discontinued 0.625 mg VAGINAL .COMPLEX 30 2 September 12, 2022 2:03pm May 02, 2023 1:41pm 0.625 mg small amount at vaginal opening 2 nights per week Start: 08-21-2021 End: 09-12-2022 Conjugated Estrogens (Premar in) 0.625 mg/gram cream Discontinued 0.625 mg VAGINAL DAILY August 21, 2021 12:00am September 12, 2022 2:05pm off 5 days; repeat cycle Start: 07-06-2020 End: 08-21-2021 Conjugated Estrogens (Premar in) 0.625 mg/gram cream Discontinued 0.625 mg VAGINAL TWICE A WEEK 30 0 July 06, 2020 12:00am August 21, 2021 9:55am apply pea-sized. Start: 02-28-2018 End: 02-28-2018 Conjugated Estrogens (Premar in) 0.625 mg/gram cream Discontinued VAGINAL 0 February 28, 2018 12:00am February 28, 2018 12:05pm Start: 02-28-2018 End: 07-06-2020 Conjugated Estrogens 0.625 m g/gram cream Discontinued 1 NMA VAGINAL .COMPLEX 30 4 February 28, 2018 12:00am July 06, 2020 1:25pm apply fingertip amount or 1-2g VAGINAL every night x 2 weeks then 1-3x weekly for maintenance Start: 02-01-2016 End: 07-06-2020 Conjugated Estrogens Discont inued 1 APPLIC VAGINAL .COMPLEX February 27, 2018 11:00pm July 06, 2020 12:25pm apply fingertip amount or 1-2g VAGINAL every night x 2 weeks then 1-3x weekly for maintenance Comment on above: Apply fingertip amou nt 2-3 x weekly vaginally Fpyxmubq-Pia-Tpajh-Hrb1 49-Hyal (Svumdi-Vxodp-Pjr (With Antiox)) 500-500-66.7 mg tablet (1 source) Start: 8 End: 5 Hbncsfee-Oeo-Npzrx-H ee082-Ydpt (Zdmqkh-Ppehs-Tae (With Antiox)) 500-500-66.7 mg tablet Discontinued 1 {tbl} PO DAILY February 28, 2018 12:00am August 18, 2025 11:38am supplement GLUCOSAMINE/CHONDROITIN SULF A (GLUCOSAMINE-CHONDROITI N ORAL) (1 source) GLUCOSAMINE/GRICEL DROI TIN SULF A (GLUCOSAMINE-CHONDRO ITIN ORAL) Indications: Malaise and fatigue Take by mouth. 0 Active Comment on above: Take by mouth. MULTIVITAMIN TAB (1 source) Start: 6 MULTIVITAMIN TAB Take one(1) tablet daily. 0 01/15/2006 Active Comment on above: Take one(1) tablet d aily. ondansetron 4 mg disintegrating oral tablet (8 sources) Serotonin-3 Receptor Antagonist Start: 9 End: 9 take 1 tablet by mouth every eight hours as needed for nausea Ondansetron 4 MG tablet Discontinued 4 mg PO EVERY 8 HOURS NEEDED as needed for Nausea December 18, 2018 1:00am June 23, 2019 1:19pm predniSONE 10 mg oral tablet (5 sources) Start: 2 End: 3 take 1 tablet by mouth twice daily Prednisone 10 mg tablet Discontinued 10 mg PO TWICE A DAY October 29, 2022 1:00am May 02, 2023 1:41pm raNITIdine 300 mg oral tablet (8 sources) Histamine-2 Receptor Antagonist Start: 8 End: 9 take 1 tablet by mouth once daily Ranitidine Hcl 300 MG tablet Discontinued 300 mg PO DAILY October 22, 2018 1:00am June 23, 2019 1:20pm Start: 10-22-2018 End: 06-23-2019 take 300 mg by mouth once daily Ranitidine Hcl Discontinued 300 MG PO DAILY October 22, 2018 12:00am June 23, 2019 12:20pm sulfamethoxazole 800 mg / trimethoprim 160 mg oral tablet (6 sources) Dihydrofolate Reductase Inhibitor Antibacterial, Sulfonamide Antimicrobial Start: 10-12-2022 End: 10-15-2022 Sulfamethoxazole-Trimethopri m 800-160 mg tablet Discontinued 1 {tbl} PO TWICE A DAY 14 October 12, 2022 1:00am October 15, 2022 5:10pm Start: 10-12-2022 End: 10-15-2022 take 1 tablet by mouth twice daily Sulfamethoxazole-Trimethoprim Discontinu ed 1 TABLET PO TWICE A DAY October 12, 2022 12:00am October 15, 2022 4:10pm Problems Active Problems Problem Classification Problem Date Documented Date Episodic/Chronic Administrative/social admission (2 sources) Persons encountering health services in other specified circumstances; Translations: [Other reasons for seeking consultation] Episodic Cardiac dysrhythmias (14 sources) Palpitations; Translations: [Palpitations] Onset: 08-18-2025 Episodic Esophageal disorders (16 sources) Gastroesophageal reflux disease; Translations: [Gastro-esophageal reflux disease without esophagitis] Onset: 08-18-2025 Chronic Essential hypertension (8 sources) Hypertensive disorder; Translations: [Essential (primary) hypertension] Onset: 09-07-2025 05-06-2023 Chronic Fever of unknown origin (8 sources) Fever; Translations: [Fever, unspecified] 12-19-2018 Episodic Fluid and electrolyte disorders (8 sources) Dehydration; Translations: [Dehydration] 12-19-2018 Episodic Genitourinary symptoms and ill-defined conditions (1 source) Dysuria; Translations: [Dysuria] Episodic Immunizations and screening for infectious disease (5 sources) Contact with and (suspected) exposure to other viral communicable diseases; Translations: [Contact with or suspected exposure to other viral communicable disease] 10-29-2022 Episodic Influenza (8 sources) Influenza-like illness; Translations: [Influenza due to unidentified influenza virus with other respiratory manifestations] 12-19-2018 Episodic Malaise and fatigue (2 sources) Fatigue; Translations: [Other fatigue] Onset: 02-01-2016 Episodic Menopausal disorders (17 sources) Atrophic vaginitis; Translations: [Postmenopausal atrophic vaginitis] Chronic Comment on above: US ordered, suspect vaginal atrophy Nonspecific chest pain (9 sources) Chest pain; Translations: [Chest pain, unspecified] Episodic Nutritional deficiencies (1 source) Vitamin D deficiency, unspecified; Translations: [Vitamin D deficiency, unspecified] Onset: 08-18-2025 Chronic Other bone disease and musculoskeletal deformities (9 sources) Osteopenia; Translations: [Other specified disorders of bone density and structure, multiple sites] Onset: 02-26-2017 02-26-2017 Episodic Other bone disease and musculoskeletal deformities (5 sources) Other specified disorders of bone density and structure, unspecified site; Translations: [Disorder of bone and cartilage, unspecified] Onset: 08-18-2025 Episodic Other circulatory disease (8 sources) Elevated blood-pressure reading without diagnosis of hypertension; Translations: [Elevated blood-pressure reading, without diagnosis of hypertension] 05-06-2023 Episodic Other circulatory disease (3 sources) Elevated blood-pressure reading, without diagnosis of hypertension; Translations: [Elevated blood pressure reading without diagnosis of hypertension] Episodic Other female genital disorders (12 sources) Dyspareunia; Translations: [Dyspareunia] Chronic Comment on above: vaginal estrogen in the past, if normal US wants to restart it. would order here at hospital. Other lower respiratory disease (1 source) Cough; Translations: [Acute cough] Episodic Other screening for suspected conditions (not mental disorders or infectious disease) (4 sources) Patient encounter status; Translations: [Encounter for screening for malignant neoplasm of colon] Onset: 11-25-2024 08-18-2025 Episodic Transient cerebral ischemia (8 sources) Transient cerebral ischemia; Translations: [Transient cerebral ischemic attack, unspecified] 08-16-2022 Chronic Comment on above: possibly ruled out, nl imaging. ?vertigo. discussed not using vaginal estrogen if this was confirmed Unclassified (1 source) Patient encounter status Unclassified (1 source) Z12.11 - Encounter for screening for malignant neoplasm of colon Past or Other Problems Problem Classification Problem Date Documented Da te Episodic/Chronic Abdominal pain (1 source) Pelvic and perineal pain; Translations: [Pelvic and perineal pain] Onset: 12-08-2024 Episodic Results Test Name Value Interpretation Reference Range Facility CBC W/Diff, Automatedon 10-1 Absolute Lymph 1.19 X10 3/uL Normal 0.83-4.51 [facility] Comment on above: Performed By: #### L 500.4050, L503.0106, L506.1001, L100.0100, L501.5200, L501.9520, L500.4100 #### [facility] [address] [place], [address] Absolute Neut 2.8 X10 3/uL Normal 2.0-7.7 [facility] Comment on above: Performed By: #### L 500.4050, L503.0106, L506.1001, L100.0100, L501.5200, L501.9520, L500.4100 #### [facility] [address] [place], [address] Basophils/100 WBC (Bld) 0.5 % Normal 0-1 [facility] Comment on above: Performed By: #### L 500.4050, L503.0106, L506.1001, L100.0100, L501.5200, L501.9520, L500.4100 #### [facility] [address] [place], [address] Eosinophils/100 WBC (Bld) 1.1 % Normal 0-5 [facility] Comment on above: Performed By: #### L 500.4050, L503.0106, L506.1001, L100.0100, L501.5200, L501.9520, L500.4100 #### [facility] [address] [place], [address] Erythrocyte distribution width (RBC) [Ratio] 13.7 % Normal 11.6-14.6 [facility] Comment on above: Performed By: #### L 500.4050, L503.0106, L506.1001, L100.0100, L501.5200, L501.9520, L500.4100 #### [facility] [address] [place], [address] Hematocrit (Bld) [Volume fraction] 44.1 % Normal 37-47 [facility] Comment on above: Performed By: #### L 500.4050, L503.0106, L506.1001, L100.0100, L501.5200, L501.9520, L500.4100 #### [facility] [address] [place], [address] Hemoglobin (Bld) [Mass/Vol] 14.1 g/dL Normal 12.0-15.0 [facility] Comment on above: Performed By: #### L 500.4050, L503.0106, L506.1001, L100.0100, L501.5200, L501.9520, L500.4100 #### [facility] [address] [place], [address] IG% 0.200 Normal 0.0-0.9 [facility] Comment on above: Result Comment: IG% - Immature Granulocytes (promyelocytes, myelocytes and metamyelocytes) > 1% indicates that a LEFT SHIFT is Present. Performed By: #### L 500.4050, L503.0106, L506.1001, L100.0100, L501.5200, L501.9520, L500.4100 #### [facility] [address] [place], [address] Lymphocytes/100 WBC (Bld) 27.0 % Normal 19-41 [facility] Comment on above: Performed By: #### L 500.4050, L503.0106, L506.1001, L100.0100, L501.5200, L501.9520, L500.4100 #### [facility] [address] [place], [address] MCH (RBC) [Entitic mass] 30.1 pg Normal 27.0-32.0 [facility] Comment on above: Performed By: #### L 500.4050, L503.0106, L506.1001, L100.0100, L501.5200, L501.9520, L500.4100 #### [facility] [address] [place], [address] MCHC (RBC) [Mass/Vol] 32.0 g/dL Normal 32-36 [facility] Comment on above: Performed By: #### L 500.4050, L503.0106, L506.1001, L100.0100, L501.5200, L501.9520, L500.4100 #### [facility] [address] [place], [address] MCV (RBC) [Entitic vol] 94.2 fL Normal 81-99 [facility] Comment on above: Performed By: #### L 500.4050, L503.0106, L506.1001, L100.0100, L501.5200, L501.9520, L500.4100 #### [facility] [address] [place], [address] Monocytes/100 WBC (Bld) 7.3 % Normal 0-10 [facility] Comment on above: Performed By: #### L 500.4050, L503.0106, L506.1001, L100.0100, L501.5200, L501.9520, L500.4100 #### [facility] [address] [place], [address] Neutrophils/100 WBC (Bld) 63.9 % Normal 47-70 [facility] Comment on above: Performed By: #### L 500.4050, L503.0106, L506.1001, L100.0100, L501.5200, L501.9520, L500.4100 #### [facility] [address] [place], [address] Nucleated RBC (Bld) [#/Vol] 0 10*3/uL Normal 0-5 [facility] Comment on above: Performed By: #### L 500.4050, L503.0106, L506.1001, L100.0100, L501.5200, L501.9520, L500.4100 #### [facility] [address] [place], [address] Platelet mean volume (Bld) [Entitic vol] 11.2 fL Normal 6.2-12.0 [facility] Comment on above: Performed By: #### L 500.4050, L503.0106, L506.1001, L100.0100, L501.5200, L501.9520, L500.4100 #### [facility] [address] [place], [address] Platelets (Bld) [#/Vol] 246 10*3/uL Normal 150-450 [facility] Comment on above: Performed By: #### L 500.4050, L503.0106, L506.1001, L100.0100, L501.5200, L501.9520, L500.4100 #### [facility] [address] [place], [address] RBC (Bld) [#/Vol] 4.68 10*6/uL Normal 4.2-5.4 [facility] Comment on above: Performed By: #### L 500.4050, L503.0106, L506.1001, L100.0100, L501.5200, L501.9520, L500.4100 #### [facility] [address] [place], [address] RDW SD 47.6 fl High 35.1-43.9 [facility] Comment on above: Performed By: #### L 500.4050, L503.0106, L506.1001, L100.0100, L501.5200, L501.9520, L500.4100 #### [facility] [address] [place], [address] WBC (Bld) [#/Vol] 4.4 10*3/uL Normal 4.4-11.0 [facility] Comment on above: Performed By: #### L 500.4050, L503.0106, L506.1001, L100.0100, L501.5200, L501.9520, L500.4100 #### [facility] [address] [place], [address] Comprehensive Metabolic Prof [facility] 08-23-2025 Albumin [Mass/Vol] 4.3 g/dL Normal 3.4-4.8 [facility] Comment on above: Performed By: #### L 500.4050, L503.0106, L506.1001, L100.0100, L501.5200, L501.9520, L500.4100 #### [facility] [address] [place], [address] Albumin/Globulin [Mass ratio] 1.5 {ratio} Normal 0.9-2.4 [facility] Comment on above: Performed By: #### L 500.4050, L503.0106, L506.1001, L100.0100, L501.5200, L501.9520, L500.4100 #### [facility] [address] [place], [address] ALK PHOS 83 U/L Normal 35-104 [facility] Comment on above: Performed By: #### L 500.4050, L503.0106, L506.1001, L100.0100, L501.5200, L501.9520, L500.4100 #### [facility] [address] [place], [address] ALT [Catalytic activity/Vol] 22 U/L Normal <=34 [facility] Comment on above: Performed By: #### L 500.4050, L503.0106, L506.1001, L100.0100, L501.5200, L501.9520, L500.4100 #### [facility] [address] [place], [address] AST [Catalytic activity/Vol] 27 U/L Normal <=31 [facility] Comment on above: Performed By: #### L 500.4050, L503.0106, L506.1001, L100.0100, L501.5200, L501.9520, L500.4100 #### [facility] [address] [place], [address] Bilirubin [Mass/Vol] 0.43 mg/dL Normal 0.00-1.30 [facility] Comment on above: Performed By: #### L 500.4050, L503.0106, L506.1001, L100.0100, L501.5200, L501.9520, L500.4100 #### [facility] [address] [place], [address] BUN/CRE 29.1 RATIO High 10-20 [facility] Comment on above: Performed By: #### L 500.4050, L503.0106, L506.1001, L100.0100, L501.5200, L501.9520, L500.4100 #### [facility] [address] [place], [address] Calcium [Mass/Vol] 9.6 mg/dL Normal 7.6-11.0 [facility] Comment on above: Performed By: #### L 500.4050, L503.0106, L506.1001, L100.0100, L501.5200, L501.9520, L500.4100 #### [facility] [address] [place], [address] Chloride [Moles/Vol] 104 mmol/L Normal 98-108 [facility] Comment on above: Performed By: #### L 500.4050, L503.0106, L506.1001, L100.0100, L501.5200, L501.9520, L500.4100 #### [facility] [address] [place], [address] CO2 [Moles/Vol] 27.3 mmol/L Normal 21.0-32.0 [facility] Comment on above: Performed By: #### L 500.4050, L503.0106, L506.1001, L100.0100, L501.5200, L501.9520, L500.4100 #### [facility] [address] [place], [address] Creatinine [Mass/Vol] 0.65 mg/dL Low 0.70-1.20 [facility] Comment on above: Performed By: #### L 500.4050, L503.0106, L506.1001, L100.0100, L501.5200, L501.9520, L500.4100 #### [facility] [address] [place], [address] GAP 8 Normal 5-15 [facility] Comment on above: Performed By: #### L 500.4050, L503.0106, L506.1001, L100.0100, L501.5200, L501.9520, L500.4100 #### [facility] [address] [place], [address] GFR/1.73 sq M.predicted among non-blacks MDRD (S/P/Bld) [Vol rate/Area] 95 mL/min/{1.73_m2} Normal >60 [facility] Comment on above: Result Comment: mL/m in/1.73m2 CKD-EPI Creatinine Equation (2020) Performed By: #### L 500.4050, L503.0106, L506.1001, L100.0100, L501.5200, L501.9520, L500.4100 #### [facility] [address] [place], [address] Globulin (S) [Mass/Vol] 2.8 g/dL Normal 2.2-4.2 [facility] Comment on above: Performed By: #### L 500.4050, L503.0106, L506.1001, L100.0100, L501.5200, L501.9520, L500.4100 #### [facility] [address] [place], [address] Glucose [Mass/Vol] 94 mg/dL Normal 70-99 [facility] Comment on above: Performed By: #### L 500.4050, L503.0106, L506.1001, L100.0100, L501.5200, L501.9520, L500.4100 #### [facility] [address] [place], [address] Potassium [Moles/Vol] 4.3 mmol/L Normal 3.3-5.1 [facility] Comment on above: Performed By: #### L 500.4050, L503.0106, L506.1001, L100.0100, L501.5200, L501.9520, L500.4100 #### [facility] [address] [place], [address] Sodium [Moles/Vol] 139 mmol/L Normal 133-145 [facility] Comment on above: Performed By: #### L 500.4050, L503.0106, L506.1001, L100.0100, L501.5200, L501.9520, L500.4100 #### [facility] [address] [place], [address] T PROT 7.1 g/dL Normal 5.9-8.4 [facility] Comment on above: Performed By: #### L 500.4050, L503.0106, L506.1001, L100.0100, L501.5200, L501.9520, L500.4100 #### [facility] [address] [place], [address] Urea nitrogen [Mass/Vol] 19 mg/dL Normal 4-19 [facility] Comment on above: Performed By: #### L 500.4050, L503.0106, L506.1001, L100.0100, L501.5200, L501.9520, L500.4100 #### [facility] [address] [place], [address] Lipid Profileon 08-23-2025 CHOL:HDL 2.61 Normal [facility] Comment on above: Performed By: #### L 500.4050, L503.0106, L506.1001, L100.0100, L501.5200, L501.9520, L500.4100 #### [facility] [address] [place], [address] Cholesterol [Mass/Vol] 197 mg/dL Normal <=200 [facility] Comment on above: Result Comment: Chol esterol level, Desirable <200 mg/dL Borderline high cholesterol 200-239 mg/dL High cholesterol >=240 mg/dL Recommendations of the NCEP Adult Treatment Panel for the following risk-cutoff thresholds for the [place] population. Performed By: #### L 500.4050, L503.0106, L506.1001, L100.0100, L501.5200, L501.9520, L500.4100 #### [facility] [address] [place], [address] Cholesterol in HDL [Mass/Vol] 76 mg/dL Normal [facility] Comment on above: Result Comment: [place] Cholesterol Education Program (NCEP) guidelines: <40 mg/dL: Low HDL-cholesterol (major risk factor for CHD) >= 60 mg/dL: High HDL-cholesterol (negative risk factor for CHD) HDL-cholesterol is affected by a number of factors, e.g. smoking, exercise, hormones, sex and age. Performed By: #### L 500.4050, L503.0106, L506.1001, L100.0100, L501.5200, L501.9520, L500.4100 #### [facility] [address] [place], [address] Cholesterol in LDL [Mass/Vol] 106 mg/dL Normal [facility] Comment on above: Result Comment: Bord puglty=058-657 mg/dL Higher Ohzf=992 mg/dL or greater Friedwald Equation for LDL-C Performed By: #### L 500.4050, L503.0106, L506.1001, L100.0100, L501.5200, L501.9520, L500.4100 #### [facility] [address] [place], [address] Cholesterol in VLDL [Mass/Vol] 16 mg/dL Normal 5-40 [facility] Comment on above: Performed By: #### L 500.4050, L503.0106, L506.1001, L100.0100, L501.5200, L501.9520, L500.4100 #### [facility] [address] [place], [address] Triglyceride [Mass/Vol] 78 mg/dL Normal [facility] Comment on above: Result Comment: The drugs N-Acetylcysteine and Metamizole may falsely depress this assay. Normal range: <150 mg/dL Borderline High: 150-199 mg/dL High: 200-499 mg/dL Very High: >500 mg/dL Performed By: #### L 500.4050, L503.0106, L506.1001, L100.0100, L501.5200, L501.9520, L500.4100 #### [facility] [address] [place], [address] Magnesiumon 08-23-2025 Magnesium [Mass/Vol] 2.5 mg/dL High 1.5-2.2 [facility] Comment on above: Performed By: #### L 500.4050, L503.0106, L506.1001, L100.0100, L501.5200, L501.9520, L500.4100 #### [facility] [address] [place], [address] Thyroid Stim Hormone (TSH)on 08-23-2025 TSH 0.903 uIU/mL Normal 0.300-4.200 [facility] Comment on above: Performed By: #### L 500.4050, L503.0106, L506.1001, L100.0100, L501.5200, L501.9520, L500.4100 #### [facility] [address] [place], [address] Vitamin B12on 08-23-2025 Cobalamin (Vitamin B12) [Mass/Vol] 808 pg/mL Normal 180-914 [facility] Comment on above: Performed By: #### L 500.4050, L503.0106, L506.1001, L100.0100, L501.5200, L501.9520, L500.4100 ####[facility] [address] [place], [address] Vitamin D,25 Hydroxyon 08-23 Vitamin D 25-OH 27.3 ng/mL Low 30-100 [facility] Comment on above: Result Comment: Reny min D Status Deficiency: <20 ng/mL (50nmol/L) Insufficiency: 20-30 ng/mL (50-75 nmol/L) Sufficiency: 30-100 ng/mL (75-250 nmol/L) Toxicity: >100 ng/mL (>250 nmol/L) Performed By: #### L 500.4050, L503.0106, L506.1001, L100.0100, L501.5200, L501.9520, L500.4100 ####[facility] [address] [place], [address] MR/BMS.IMBon 08-18-2025 MR/BMS.IMB [facility] [address] [place] [address] OFFICE VISIT Date of Service: 08/18/25 MR#: [id number] Acct: [id number] Name: DIDIER DELCID Rep #: [id number] : 1955 Provider: Dr. Jolie santoro MD Age/Sex: 69/F Location: [facility] Status: Signed with Addenda ADDENDUM by Rod Vasquez RN on 08/18/25 at 1353 Office Procedure Documentation entered by Rod Vasquez RN 08/18/25 13:53: Immunizations Fluad 2024- 65yr up(PF)45 mcg(15 mcgx3)/0.5 mL intramuscular syringe Performing Provider: Jolie Sheehan MD Performing Location: [facility] Administered by: Rod Vasquez RN on 08/18/25 13:53 Dose Route Admin Location Dispensed Lot Number Expiration Date Package NDC [employer] 45 mcg IM Right Deltoid 0.5 mL [id number] 03/08/26 27064-660-55 [id number] [employer] 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: No Accompanied by: Self Is patient in pain?: No Allergies Penicillins Allergy (Mild, Verified 08/18/25 11:35) rash Medications ???Medication ???Instructions ???Recorded ???Confirmed ???Type calcium 600 mg (as 1 cap PO DAILY supplement 02/28/18 08/18/25 History carbonate)-vitamin D3 10 mcg (400 unit) capsule (Calcium with Vitamin D3) multivitamin 1 tab PO QDAY supplement 02/28/18 08/18/25 History biotin 800 mcg tablet 800 mcg PO DAILY 05/02/23 08/18/25 History lutein 20 mg capsule See Rx Instructions PO DAILY 10/1608/18/25 History estradiol 0.01% (0.1 mg/gram) See Rx Instructions vaginal 2XW 08/18/25 History vaginal cream latanoprostene bunod 0.024 % eye 1 drp ophthalmic (eye) QDAY 08/18/25 History drops (Vyzulta) Have you fallen in the past year?: No PFSH Medical History Contact with and (suspected) exposure to other viral communicable diseases Elevated BP without diagnosis of hypertension Surgical History S/P laser cataract surgery H/O: Family History Brother Bladder cancer Mother Uterine cancer Father Heart disease Myocardial infarction Social History Smoking Status: Never smoker alcohol intake: current details: 3 times per week (wine) substance use type: does not use caffeine: Yes what type of physical activity do you participate in: none seatbelt use: always do you feel safe at home: Yes 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 69-year-old female with a history of elevated blood pressure but not currently on any specific medication for hypertension. She takes several supplements including biotin, calcium with vitamin D, lutein, multivitamin and latanoprostene eyedrops. Overall feels well. She had her last colonoscopy in 2011. She wonders about doing another 1 and I would recommend she do 1 more at this point. She believes it may have been Dr. Candelaria but it was at the [facility]. Will try and obtain a copy of that and will refer her to [facility]. Review of systems per chart. Patient denies chest pain, chest tightness, shortness of breath, wheeze cough, congestion. No change in appetite. Bowel movements are typically a couple per day, after meals. No blood in the stool or black stool. No specific new urinary symptoms. She did have some symptoms of uncomfortable feeling with urination, and did see urology locally. They had suggested medication which she declined. Loving to have been related to some of the things in her diet that she was eating. She has made some dietary amendments and that has helped including reducing the amount of acidic foods, and coffee. Physical exam. Vital signs on chart. Bilateral intraocular lens replacements. PERRLA. Sclera are clear. TMs are unremarkable with normal light reflexes. Canals are unremarkable. Post (more content not included)... Normal [facility] Urine Cultureon 11-19-2024 URC Culture exhibits no growth. Normal [facility] Comment on above: Performed By: #### M 100.0620 #### [facility] [address] [place], [place], [address] Urgent Care Visit Reporton 0 11-18-2024 Urgent Care Visit Report [facility] [address], [address] [place], [place] [address] OFFICE VISIT Date of Service: 11/18/24 MR#: [id number] Acct: [id number] Name: DIDIER DELCID Rep #: [id number] : 1955 Provider: ALLA Montes De Oca Age/Sex: 69/F Location: [facility] Status: Signed Intake Vital Signs 10/21/24 14:50 11/18/24 11:42 Height 5 ft 7 in BP 146/82 H Blood Pressure Location Rt brachial Position Sitting Respiration 16 Pulse 83 Pulse Source NIBP Temp 98.7 F Temp Source Oral Pulse Oximetry (%) 98 Oxygen Delivery Method room air Intake Visit Reasons: POSSIBLE BLADDER INFECTION Chief Complaint: pelvic pain, low back pain, bladder spasms 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 denies blood, fever. 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 No complaints of fever, chills, sweats, lightheadedness/dizzin ess, nausea/vomiting, or chest pain/shortness of breath/dyspnea on exertion/back pain. No changes in color/ character of urine or stool; no new urethral/ vaginal discharge. AZO no assist. No other associated symptoms and no alleviating/aggravatin g factors. ROS Const Constitutional: No other (As above) Exam Const General: cooperative, healthy appearing and no acute distress Orientation: alert, awake and oriented x3 Chest Chest palpation inspection: normal inspection of the chest Resp Effort Inspection: normal respiratory effort and able to speak in complete sentences Auscultation: Bilateral: Clear to Auscultation Cardio Palpation: normal PMI Rate: regular rate Rhythm: regular rhythm Heart Sounds: S1 normal, S2 normal, no gallops, no murmurs and no rubs Pulses: radial pulses present GI Inspection: normal to inspection Palpation: soft and tender suprapubic (Patient describes upon self-palpation) General: No CVA tenderness Skin General: no rashes or lesions noted Neuro General: patient alert, patient awake and patient oriented x3 Cognition: normal cognition Speech: speech normal Psych Appearance: grossly normal Mental Status: mental status grossly normal Mood: congruent mood Affect: normal affect Speech and Movement: speech and movement normal Attitude: cooperative Diagnoses Dysuria R30.0 Assessment and Plan Assessment and Plan (1) dysuria: Status: Acute Plan: See POC results; urine sent to lab for C/S. Supportive measures as instructed today. Follow-up with PCP in 3 to 5 days should symptoms not improve, sooner should symptoms only worsen or any other concerns develop. Patient states acknowledging understanding all the above Results POC Urinalysis Dip (Clinic) Office Urine Color Yellow Last Edit by Federica Johnson on 11/18/24 11:51 Office Urine Clarity Clear Last Edit by Federica Johnson on 11/18/24 11:51 Office Urine Glucose Negative Last Edit by Federica Johnson on 11/18/24 11:51 Office Urine Ketones Negative Last Edit by Federica Johnson on 11/18/24 11:51 Off Ur Spec [place] 1.010 Last Edit by Federica Johnson on 11/18/24 11:51 Office Urine pH 6.0 Last Edit by Federica Johnson on 11/18/24 11:51 Office Urine Bilirubin Negative Last Edit by Federica Johnson on 11/18/24 11:51 Office Urine Urobilinogen Negative Last Edit by Federica Johnson on 11/18/24 11:51 Office Urine Blood Negative Last Edit by Federica Johnson on 11/18/24 11:51 Office Urine Blood Hemolyzed (more content not included)... Normal [facility] SCRN MAMM (CAD)W/MUMTAZ BILATo n 10-29-2024 SCRN MAMM (CAD)W/MUMTAZ BILAT [facility] [address] [place] [address] SCRN MAMM (CAD)W/MUMTAZ BILAT MR#: [id number] Acct: [id number] Name: DIDIER DELCID Rep #: [id number] : 1955 F 68 From: Surinder zacarias MD PCP: Dr. 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 Routine annual screening examination. PERTINENT HISTORY: Non-contributory. TECHNIQUE: Digital bilateral breast mumtaz (3D mammographic acquisition) in the CC and MLO projections. 2-D mediolateral oblique (MLO) and craniocaudad (CC) views of both breasts were obtained. CAD: Full Field Digital Mammography with Computer Added Detection was performed. COMPARISON: Comparison is made with prior study dated October 28, 2023 and October 01, 2022. FINDINGS: Breast Composition: The breasts are heterogeneously dense, which may obscure small masses. There are no dominant masses or suspicious calcifications. Stable small benign appearing bilateral axillary lymph nodes. No other significant abnormalities are identified. There has been no significant change since the prior study. BI/SCRN MAMM (CAD)W/MUMTAZ BILAT IMPRESSION: Stable bilateral screening mammogram. Yearly follow-up mammogram recommended. (A) ASSESSMENT CATEGORY: BIRADS Category 2: Benign. A letter regarding these results will be sent to the patient by the facility within 30 days. Approximately 10% of breast cancers are not detected by mammography. A normal mammogram should not delay biopsy of a clinically suspicious abnormality. [id number] Electronically Signed: Surinder Mercedes MD at 14:46 EST Reading Location ID and State: [address] [place] [address] , Service support , CC: ALEXIS Hayes; Dr. Jolie Sheehan MD Attendance Officer: Signed Normal [facility] Office Visit Reporton 10-21-2024 [facility] Office Visit Report 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 Is patient in pain?: No Allergies Penicillins Allergy (Mild, Verified 10/21/24 14:42) rash Medications ???Medication ???Instructions ???Recorded ???Confirmed ???Type calcium 600 mg (as 1 cap PO DAILY supplement 02/28/18 10/21/24 History carbonate)-vitamin D3 10 mcg (400 unit) capsule (Calcium with Vitamin D3) pjjmuiynicp-pay-wupgyu oit-hrb 1 tab PO DAILY supplement 02/28/18 10/21/24 History 149-hyalur 500 mg-500 mg-66.7 mg tablet (Glucosamine-Chondroit in-MSM (with antiox)) multivitamin 1 tab PO QDAY supplement 02/28/18 10/21/24 History biotin 800 mcg tablet 800 mcg PO DAILY 05/02/23 10/21/24 History lutein 20 mg capsule See Rx Instructions PO DAILY 10/16/23 10/21/24 History estradiol 0.01% (0.1 mg/gram) See Rx Instructions vaginal 2XW 10/21/24 10/21/24 History vaginal cream Is last menstrual period known: No Post menopausal: Yes Patient : No : No [facility] Medical History Contact with and (suspected) exposure to other viral communicable diseases Elevated BP without diagnosis of hypertension Surgical History S/P laser cataract surgery H/O: Family History Brother Bladder cancer Mother Uterine cancer Father Heart disease Myocardial infarction Social History Smoking Status: Never smoker alcohol intake: current details: 3 times per week (wine) substance use type: does not use caffeine: Yes what type of physical activity do you participate in: none seatbelt use: always do you feel safe at home: Yes 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 Date Name GA/Weeks Outcome Route Bth Weight Gen Labor Lgth Anesthesia Del Locatn Provider FOB Unknown Mila- 1983 Unknown Jasiel-1987 HPI Encounter for routine gynecological examination Details: DIDIER DELCID is a 68 year old who presents for annual exam. Denies concerns Last PAP: no History of abnormal PAP: no Last mammogram: 10/2023 History of abnormal mammogram: no Colon cancer screenin Other preventative health care screenings: [place]ila Nair Constitutional: Denies fatigue, weight gain or weight loss Cardio Card: Denies chest pain Resp Resp: Denies cough or dyspnea on exertion GI GI: Denies abdominal pain, bloating, change in stool character, constipation or vomiting : Reports as per HPI; Denies difficulty voiding, pelvic pain, urinary frequency, urinary incontinence, urinary urgency, vaginal discharge or vaginal pruritus Exam Const General: cooperative, healthy appearing, comfortable, no acute distress and well developed Nutritional Appearance: average body habitus Orientation: alert HENMT Head: normal to inspection and normocephalic Neck Neck: normal visual inspection and trachea midline Thyroid: thyroid normal Resp Effort Inspection: normal respiratory effort GI Inspection: normal to inspection and non-distended Palpation: soft and no hepatosplenomegaly General: bladder normal to palpation External Female Exam: normal external appearance (atrophy) and normal appearance of the urethra Urethra: normal appearance of the urethra, normal palpation and no discharge Speculum Exam - Vagina: normal appearance of the vagina and normal vaginal discharge Speculum Exam - Cervix: normal appearance of the cervix and nontender Bimanual Exam- Vagina Uterus: normal bimanual exam, uterine size normal, bladder normal to palpation, uterine shape normal, No tender, uterine mobility normal, consistency normal, normal palpation and non-tender Bimanual Exam- Adnexa, other: normal adnexae, adnexae mobile, no masses and normal Pelvic Support: normal Skin General: no rashes or lesions noted Coding Level of Care Code MC Pelvic/Breast Diagno (more content not included)... Normal [facility] Absolute lymphocyte countOrd ered By: Dr. Sheehan on 05-02-2023 Lymphocytes Auto (Unsp spec) [#/Vol] 1.29 10*3/uL 0.83-4.51 [facility] Basophil percentageOrdered B y: Dr. Sheehan on 05-02-2023 Basophils/100 WBC (Bld) 0.6 % 0-1 [facility] Bilirubin [Mass/Vol] 0.30 mg/dL 0.20-1.00 [facility] Comment on above: For patients on eltr ombopag therapy, use of Dimension [place] TBIL is not recommended. Chloride [Moles/Vol] 107 mmol/L 98-107 [facility] Cholesterol [Mass/Vol] 199 mg/dL <200 [facility] Comment on above: <200 mg/dL Desirable 200-240 mg/dL Borderline >240 mg/dL High Risk Eosinophils/100 WBC (Bld) 1.5 % 0-5 [facility] Glucose [Mass/Vol] 96 mg/dL 74-106 [facility] Neutrophils (Bld) [#/Vol] 4.7 10*3/uL 2.0-7.7 [facility] Neutrophils/100 WBC (Bld) 72.2 % 47-70 [facility] Potassium [Moles/Vol] 4.2 mmol/L 3.5-5.1 [facility] Protein [Mass/Vol] 7.6 g/dL 6.4-8.2 [facility] Sodium [Moles/Vol] 142 mmol/L 136-145 [facility] Triglyceride [Mass/Vol] 104 mg/dL <199 [facility] Comment on above: The drugs N-Acetylcy steine and Metamizole may falsely depress this assay.Serum Triglycerides Reference Interval Normal <150 mg/dL Borderline high 150 - 199 mg/dL High 200 - 499 mg/dL Very High > or = 500 mg/dL WBC (Bld) [#/Vol] 6.5 10*3/uL 4.4-11.0 [facility] Blood erythrocytes count (nu mber/volume)Ordered By: Dr. Sheehan on 05-02-2023 RBC (Bld) [#/Vol] 4.70 10*6/uL 4.2-5.4 [facility] Blood hemoglobin measurement (mass/volume)Ordered By: Dr. Sheehan on 05-02-2023 Hemoglobin (Bld) [Mass/Vol] 13.9 g/dL 12.0-15.0 [facility] Blood lymphocytes/100 leukoc ytesOrdered By: Dr. Sheehan on 05-02-2023 Lymphocytes/100 WBC (Bld) 19.9 % 19-41 [facility] Blood monocytes/100 leukocyt esOrdered By: Dr. Sheehan on 05-02-2023 Monocytes/100 WBC (Bld) 5.6 % 0-10 [facility] Blood platelet mean volumeOr dered By: Dr. Sheehan on 05-02-2023 Platelet mean volume (Bld) [Entitic vol] 10.9 fL 6.2-12.0 [facility] Determination of erythrocyte mean corpuscular volume (MCV)Ordered By: Dr. Sheehan on 05-02-2023 MCV (RBC) [Entitic vol] 95.1 fL 81-99 [facility] Hematocrit Auto (Bld) [Volum e fraction]Ordered By: Dr. Sheehan on 05-02-2023 Hematocrit (Bld) [Volume fraction] 44.7 % 37-47 [facility] - Chemistry and C hemistry - challengeOrdered By: Dr. Sheehan on 05-02-2023 ALP [Catalytic activity/Vol] 83 U/L 45-117 [facility] ALT [Catalytic activity/Vol] 25 U/L 13-56 [facility] CO2 [Moles/Vol] 31.0 mmol/L 21.0-32.0 [facility] Globulin (S) [Mass/Vol] 3.6 g/dL 2.2-4.2 [facility] Urea nitrogen/Creatinine [Mass ratio] 22.3 mg/mg 10-20 [facility] - Hematology and Cell countsOrdered By: Dr. Sheehan on 05-02-2023 Erythrocyte distribution width (RBC) [Entitic vol] 48.1 fL 35.1-43.9 [facility] Erythrocyte distribution width (RBC) [Ratio] 13.6 % 11.6-14.6 [facility] Immature granulocytes/100 WBC (Bld) 0.200 % 0.0-0.9 [facility] Comment on above: IG% - Immature Granu locytes (promyelocytes, myelocytes and metamyelocytes) > 1% indicates that a LEFT SHIFT is Present. MCH (RBC) [Entitic mass] 29.6 pg 27.0-32.0 [facility] Nucleated RBC/100 WBC (Bld) [Ratio] 0 % 0-5 [facility] MCHC Auto (RBC) [Mass/Vol]Or dered By: Dr. Sheehan on 05-02-2023 MCHC (RBC) [Mass/Vol] 31.1 g/dL 32-36 [facility] No Panel InformationOrdered By: Dr. Sheehan on 05-02-2023 Estimated GFR (MDRD) Amer 122 mL/min >60 [facility] Comment on above: GFR Calc Estimated GFR (MDRD) Non-Af Amer 100 mL/min >60 [facility] Comment on above: Non- GFR Calc Thyroid Stimulating Hormone (TSH) 1.69 uIU/mL 0.358-3.74 [facility] Vitamin D 25-Hydroxy 39.8 ng/mL [facility] Comment on above: Vitamin D 25(OH) Sta tus Range Deficiency <20 ng/mL (50nmol/L) Insufficiency 20 - 30 ng/mL (50 - 75 nmol/L) Sufficiency 30 - 100 ng/mL (75 - 250 nmol/L) Toxicity >100 ng/mL (>250 nmol/L) Platelets bldOrdered By: Dr. Sheehan on 05-02-2023 Platelets (Bld) [#/Vol] 251 10*3/uL 150-450 [facility] Serum or plasma albumin jethro urement (mass/volume)Ordered By: Dr. Sheehan on 05-02-2023 Albumin [Mass/Vol] 4.0 g/dL 3.2-5.0 [facility] Serum or plasma albumin/glob ulin mass ratioOrdered By: Dr. Sheehan on 05-02-2023 Albumin/Globulin [Mass ratio] 1.1 {ratio} 0.9-2.4 [facility] Serum or plasma calcium jethro urement (mass/volume)Ordered By: Dr. Sheehan on 05-02-2023 Calcium [Mass/Vol] 9.3 mg/dL 8.5-10.1 [facility] Serum or plasma cholesterol in HDL measurement (mass/volume)Ordered By: Dr. Sheehan on 05-02-2023 Cholesterol in HDL [Mass/Vol] 76 mg/dL >40 [facility] Comment on above: The drugs N-Acetylcy steine and Metamizole may falsely depress this assay. Reference Range HDL <40 mg/dL Low HDL Cholesterol HDL >or= 60 mg/dL High HDL Cholesterol Serum or plasma cholesterol in VLDL measurement (mass/volume)Ordered By: Dr. Sheehan on 05-02-2023 Cholesterol in VLDL [Mass/Vol] 21 mg/dL 5-40 [facility] Serum or plasma creatinine m easurement (mass/volume)Ordered By: Dr. Sheehan on 05-02-2023 Creatinine [Mass/Vol] 0.63 mg/dL 0.55-1.02 [facility] Comment on above: The validity of the calculated GFR & GFRAA in patients over 70 years has not been determined. Clinical correlation is essential. Serum or plasma low density lipoprotein (LDL) cholesterol measurement (mass/volume)Ordered By: Dr. Sheehan on 05-02-2023 Cholesterol in LDL [Mass/Vol] 102 mg/dL 0-130 [facility] Serum or plasma urea nitroge n measurement (mass/volume)Ordered By: Dr. Sheehan on 05-02-2023 Urea nitrogen [Mass/Vol] 14 mg/dL 7-18 [facility] Thin prep Papanicolaou smear with manual screeningOrdered By: Dr. Sheehan on 05-02-2023 Thin prep Papanicolaou smear with manual screening 23 U/L 15-37 [facility] Thin prep Papanicolaou smear with manual screening 4 5-15 [facility] Basophil percentageon 2021 Basophil percentage 0-5 SEEN /hpf 0-5 [facility] Work Phone: Bilirubin Test strip Ql (U)o n 10-12-2022 Bilirubin Ql (U) Negative Negative [facility] Work Phone: Ketones Test strip Ql (U)on 10-12-2022 Ketones Ql (U) Negative Negative [facility] Work Phone: Mucus LM Ql (Urine sed)on Mucus Ql (Urine sed) 0 SEEN /hpf [facility] Work Phone: Nitrite Test strip Ql (U)on 10-12-2022 Nitrite Ql (U) Negative Negative [facility] Work Phone: Protein Test strip Ql (U)on 10-12-2022 Protein Ql (U) 15 mg/dl Negative [facility] Work Phone: Squamous epithelial cells de tection in urine sediment by light microscopyon 10-12-2022 Epithelial cells.squamous LM Ql (Urine sed) 0 SEEN /hpf 5-10 [facility] Work Phone: Urine blood detectionon RBC Ql (U) 50 /ul Negative [facility] Work Phone: RBC Ql (U) 0-5 SEEN /hpf 0-5 [facility] Work Phone: Urine clarityon 10-12-2022 Clarity (U) Clear Clear [facility] Work Phone: Urine color determinationon 10-12-2022 Color (U) Yellow Yellow [facility] Work Phone: Urine glucose detectionon Glucose Ql (U) Normal mg/dl Normal [facility] Work Phone: Urine leukocyte esterase det ection by dipstickon 10-12-2022 Leukocyte esterase Test strip Ql (U) 25 /ul Negative [facility] Work Phone: Urine pHon 10-12-2022 pH (U) 6.5 [pH] 5.0 - 8.0 [facility] Work Phone: Urine sediment bacteria coun t by microscopy (number/high power field)on 10-12-2022 Bacteria LM.HPF (Urine sed) [#/Area] RARE /hpf None Seen [facility] Work Phone: Urine specific gravity measu rementon 10-12-2022 Specific gravity (U) [Rel density] 1.020 1.002-1.030 [facility] Work Phone: Urobilinogen Auto test strip Ql (U)on 10-12-2022 Urobilinogen Ql (U) Normal mg/dl Normal [facility] Work Phone: CNPYesenia 05-29-2022 CNPN Telephone (UCWSTR) DIDIER DELCID ([id number]) 1955 F Date Time Provider Department 05/29/22 MINGO PANIAGUA During your visit today, we recorded the following information about you: Mingo Paniagua APRN.CNP 05/29/2022 7:30 AM Signed Please notify that covid/flu testing negative. Continue with plan of care as discussed during visit. Kerrie Garza LPN 05/29/2022 7:46 AM Signed Phone call placed patient notified (see prior provider encounter) Patient requested follow up previously scheduled with Licha to be cancelled, no longer needed. Kerrie Garza LPN Allergies As of Date: 05/29/2022 Noted Allergy Reaction PENICILLINS 01/15/2006 Comments: AND DERIVATIVES Date Reviewed: 05/28/2022 Reviewed by: Christine Kelly MA - Fully Assessed Reason for Visit: Results [95] Prescriptions as of 05/29/2022 - Biotin 10 mg tab Take 0.5 tablets by mouth once daily. - GLUCOSAMINE/CHONDROITI N SULF A (GLUCOSAMINE-CHONDROIT IN ORAL) Take by mouth. - conjugated estrogens (PREMARIN) vaginal cream Apply fingertip amount 2-3 x weekly vaginally - Ca-D3-mag hn-hfcs-ztf-ashanti-bor (CALCIUM 600+D3 PLUS) 600 mg calcium- 800 unit-50 mg tab Take by mouth. - MULTIVITAMIN TAB Take one(1) tablet daily. Problem List As Of Date 05/29/2022 Noted Resolved Internal hemorrhoids [K64.8] 10/31/2018 Malaise and fatigue [R53.81, R53.83] 02/01/2016 Osteopenia of multiple sites [M85.89] 02/26/2017 Encounter Status:Closed by KERRIE GARZA LPN on 05/29/22 Normal [facility] Absolute lymphocyte counton 05-28-2022 Lymphocytes Auto (Unsp spec) [#/Vol] 1.33 10*3/uL 0.83-4.51 [facility] Work Phone: Basophil percentageon 2021 Basophils/100 WBC (Bld) 0.5 % 0-1 [facility] Work Phone: Chloride [Moles/Vol] 106 mmol/L 98-107 [facility]: [phone] Eosinophils/100 WBC (Bld) 1.2 % 0-5 [facility] Work Phone: [phone] Glucose [Mass/Vol] 98 mg/dL 74-106 [facility] Work Phone: [phone] Neutrophils (Bld) [#/Vol] 4.7 10*3/uL 2.0-7.7 [facility] Work Phone: [phone] Neutrophils/100 WBC (Bld) 72.4 % 47-70 [facility] Work Phone: [phone] Potassium [Moles/Vol] 3.7 mmol/L 3.5-5.1 [facility] Work Phone: Sodium [Moles/Vol] 141 mmol/L 136-145 [facility] Work Phone: [phone] WBC (Bld) [#/Vol] 6.5 10*3/uL 4.4-11.0 [facility] Work Phone: [phone] Blood erythrocytes count (nu mber/volume)on 05-28-2022 RBC (Bld) [#/Vol] 4.79 10*6/uL 4.2-5.4 [facility] Work Phone: [phone] Blood hemoglobin measurement (mass/volume)on 05-28-2022 Hemoglobin (Bld) [Mass/Vol] 14.4 g/dL 12.0-15.0 [facility] Work Phone: Blood lymphocytes/100 leukoc yteson 05-28-2022 Lymphocytes/100 WBC (Bld) 20.5 % 19-41 [facility] Work Phone: Blood monocytes/100 leukocyt eson 05-28-2022 Monocytes/100 WBC (Bld) 5.1 % 0-10 [facility] Work Phone: [phone] Blood platelet mean volumeon 05-28-2022 Platelet mean volume (Bld) [Entitic vol] 10.9 fL 6.2-12.0 [facility] Work Phone: Lisa 05-28-2022 CNOV Office Visit (UCWSTR ) DIDIER DELCID ([id number]) 1955 F Date Time Provider Department 05/28/22 2:30 PM DELMY LEDESMA UCWSTR During your visit today, we recorded the following information about you: Temperature Pulse Respiration Blood pressure 96.7 degrees 95/minute 20/minute 130/88 Weight 59.5 kg Delmy LedesmaDENIZ.STREET COMMISSIONER 05/28/2022 3:45 PM Signed Subjective The history is provided by the patient. No language therapist was used. SAMANTAH Didier Delcid is a 66 year old female who presents today for CC of chest burning sensation, post nasal drainage, and fatigue and occasional cough. She states that symptoms started on Saturday evening. She states she feels winded on exertion. She has not used any medications or treatment. No h/o of heart abnormality. H/o of acid reflus, not on any medicaitons. She denies any nasal congestion, runny nose, nausea, vomiting, diarrhea, body aches, chills, or fever. BP 130/88 Pulse 95 Temp (!) 35.9 ?C (96.7 ?F) Resp 20 Wt 59.5 kg (131 lb 3.2 oz) LMP 07/08/2006 SpO2 98% BMI 21.18 kg/m? Social History Tobacco Use - Smoking status: Never Smoker - Smokeless tobacco: Never Used Substance Use Topics - Alcohol use: Yes Comment: Occasionally wine - Drug use: No PAST MEDICAL HISTORY Diagnosis Date - Internal hemorrhoids - Internal hemorrhoids without mention of complication - Osteopenia I have confirmed and edited as necessary, the [facility] Review of Systems Constitutional: Negative for chills and fever. HENT: Negative for congestion, ear pain, sinus pain and sore throat. Respiratory: Negative for cough, sputum production, shortness of breath and wheezing. Cardiovascular: Negative for chest pain. Musculoskeletal: Negative for myalgias. Neurological: Negative for headaches. Objective Physical Exam Vitals and nursing note reviewed. HENT: Head: Normocephalic and atraumatic. Right Ear: Tympanic membrane, ear canal and external ear normal. Left Ear: Tympanic membrane, ear canal and external ear normal. Mouth/Throat: Pharynx: Uvula midline. Cardiovascular: Rate and Rhythm: Normal rate and regular rhythm. Pulses: Normal pulses. Heart sounds: Normal heart sounds. Pulmonary: Breath sounds: Normal breath sounds. Lymphadenopathy: Head: Right side of head: No submental, submandibular or tonsillar adenopathy. Left side of head: No submental, submandibular or tonsillar adenopathy. Cervical: No cervical adenopathy. Skin: General: Skin is warm and dry. Neurological: Mental Status: She is alert. Psychiatric: Mood and Affect: Affect normal. ASSESSMENT/PLAN: 1. Fatigue, unspecified type - ICD9: 780.79, ICD10: R53.83 (primary diagnosis) - COVID WITH FLUA+B, ROUTINE 2. Acute cough - ICD9: 786.2, ICD10: R05.1 3. Burning chest pain - ICD9: 786.59, ICD10: R07.89 Differential dx: Covid, GERD, heart Advise patient limited cardiac work up in [facility], did not want to go to ED, although advised to do so after visit. Will do covid test today. - COVID WITH FLUA+B, ROUTINE Diagnosis and treatment plan were discussed and questions were answered to the patient's satisfaction. Pt acknowledged understanding of concepts and follow up plan. Specific signs and symptoms that would indicate the need for higher level of care were discussed in detail warranting prompt ER evaluation. Delmy Ledesma APRN.STREET COMMISSIONER Referring Provider: SELF [200] Allergies As of Date: 05/28/2022 Noted Allergy Reaction PENICILLINS 01/15/2006 Comments: AND DERIVATIVES Date Reviewed: 05/28/2022 Reviewed by: Christine Kelly MA - Fully Assessed Reason for Visit: Chest Congestion [236] Cmt: fatigue, sinus drainage x4 days Primary Visit Diagnosis:Fatigue, unspecified type [R53.83] Other Visit Diagnoses:Acute cough [R05.1] Burning chest pain [R07.89] Order(s):COVID WITH FLUA+B, ROUTINE [SQCOVFLU] Order #: [id number] FUTURE COVID WITH FLUA+B, ROUTINE [SQCOVFLU] Order #: [id number]. #:[id number] Prescriptions as of 05/28/2022 - Biotin 10 mg tab Take 0.5 tablets by mouth once daily. - GLUCOSAMINE/CHONDROITI N SULF A (GLUCOSAMINE-CHONDROIT IN ORAL) Take by mouth. - conjugated estrogens (PREMARIN) vaginal cream Apply fingertip amount 2-3 x weekly vaginally - Ca-D3-mag me-pfkg-vvj-ashanti-bor (CALCIUM 600+D3 PLUS) 600 mg calcium- 800 unit-50 mg tab Take by mouth. - MULTIVITAMIN TAB Take one(1) tablet daily. Problem List As Of Date 05/28/2022 Noted Resolved Internal hemorrhoids [K64.8] 10/31/2018 Malaise and fatigue [R53.81, R53.83] 02/01/2016 Osteopenia of multiple sites [M85.89] 02/26/2017 Encounter Status:Closed by DELMY LEDESMA on 05/28/22 Normal [facility] Determination of erythrocyte mean corpuscular volume (MCV)on 05-28-2022 MCV (RBC) [Entitic vol] 95.0 fL 81-99 [facility] Work Phone: Hematocrit Auto (Bld) [Volum e fraction]on 05-28-2022 Hematocrit (Bld) [Volume fraction] 45.5 % 37-47 [facility] Work Phone: Laboratory - Chemistry and C hemistry - challengeon 05-28-2022 CO2 [Moles/Vol] 30.0 mmol/L 21.0-32.0 [facility] Work Phone: Urea nitrogen/Creatinine [Mass ratio] 17.0 mg/mg 10-20 [facility] Work Phone: Laboratory - Hematology and Cell countson 05-28-2022 Erythrocyte distribution width (RBC) [Entitic vol] 47.4 fL 35.1-43.9 [facility] Work Phone: Erythrocyte distribution width (RBC) [Ratio] 13.4 % 11.6-14.6 [facility] Work Phone: Immature granulocytes/100 WBC (Bld) 0.300 % 0.0-0.9 [facility] Work Phone: Comment on above: IG% - Immature Granu locytes (promyelocytes, myelocytes and metamyelocytes) > 1% indicates that a LEFT SHIFT is Present. MCH (RBC) [Entitic mass] 30.1 pg 27.0-32.0 [facility] Work Phone: Nucleated RBC/100 WBC (Bld) [Ratio] 0 % 0-5 [facility] Work Phone: MCHC Auto (RBC) [Mass/Vol]on 05-28-2022 MCHC (RBC) [Mass/Vol] 31.6 g/dL 32-36 [facility] Work Phone: No Panel Informationon 05-28 Troponin I High Sensitivity 4 pg/mL 3.0-54.0 [facility] Work Phone: Comment on above: Please Note: New [place] t Units and Gender Specific Reference Ranges. For more information see Policy Stat Procedure [place] High Sensitivity Troponin (TNIH) and attachments. Estimated Creatinine Clearance Calc 63.18 ml/min [facility] Work Phone: Estimated GFR (MDRD) Amer 89 mL/min >60 [facility] Work Phone: Comment on above: GFR Calc Estimated GFR (MDRD) Non-Af Amer 74 mL/min >60 [facility] Work Phone: Comment on above: Non- GFR Calc Platelets bldon 05-28-2022 Platelets (Bld) [#/Vol] 264 10*3/uL 150-450 [facility] Work Phone: Serum or plasma calcium jethro urement (mass/volume)on 05-28-2022 Calcium [Mass/Vol] 9.4 mg/dL 8.5-10.1 [facility] Work Phone: Serum or plasma creatinine m easurement (mass/volume)on 05-28-2022 Creatinine [Mass/Vol] 0.82 mg/dL 0.55-1.02 [facility] Work Phone: Comment on above: The validity of the calculated GFR & GFRAA in patients over 70 years has not been determined. Clinical correlation is essential. Serum or plasma urea nitroge n measurement (mass/volume)on 05-28-2022 Urea nitrogen [Mass/Vol] 14 mg/dL 05-28 [facility] Work Phone: Thin prep Papanicolaou smear with manual screeningon 05-28-2022 Thin prep Papanicolaou smear with manual screening 03 15- [facility] Work Phone: CNPNon 11-08-2021 CNPN Telephone (INTMWS) DIDIER DELCID ([id number]) 1955 F Date Time Provider Department 11/08/21 GUZMAN ALCANTARA INTCHIKA During your visit today, we recorded the following information about you: Blanca Marinelligisela JOE 11/08/2021 3:57 PM Signed Patient calling was told by [facility] nurse office to get appt with PCP, her blood pressure was 150/80 when she was getting her flu shot. Patient was wanting to reschedule her yearly appt with PCP that had gotten cancelled due to PCP being out ill in June. Patient unhappy that PCP schedule is out into April 2022. Patient changes to medicare after November. Offered welcome to medicare physical with Licha Thakur NP for mid November and patient said do not schedule that, I will have to call back I am driving right now. Patient said may have to change to another PCP since I have not seen her for 2 years now. Guzman Alcantara MD 11/08/2021 5:33 PM Signed Could schedule on Saturday when schedule opens up in November. Instead of telling patients no openings till 6 months out, please forward to me and nurses to see about finding slot for patients who need seen sooner. Licha Thakur APRN.PIT CLERK 12/05/2021 7:12 AM Signed needs appt scheduled Allergies As of Date: 11/08/2021 Noted Allergy Reaction PENICILLINS 01/15/2006 Comments: AND DERIVATIVES Date Reviewed: 11/06/2019 Reviewed by: Michelle Mari LPN - Fully Assessed Reason for Visit: Appointment [186] Prescriptions as of 01/25/2022 - Biotin 10 mg tab Take 0.5 tablets by mouth once daily. - GLUCOSAMINE/CHONDROITI N SULF A (GLUCOSAMINE-CHONDROIT IN ORAL) Take by mouth. - conjugated estrogens (PREMARIN) vaginal cream Apply fingertip amount 2-3 x weekly vaginally - Ca-D3-mag fe-isvr-ewc-ashanti-bor (CALCIUM 600+D3 PLUS) 600 mg calcium- 800 unit-50 mg tab Take by mouth. - MULTIVITAMIN TAB Take one(1) tablet daily. Problem List As Of Date 11/08/2021 Noted Resolved Internal hemorrhoids [K64.8] 10/31/2018 Malaise and fatigue [R53.81, R53.83] 02/01/2016 Osteopenia of multiple sites [M85.89] 02/26/2017 Encounter Status:Closed by BLANCA SANCHEZ LPN on 01/25/22 Normal [facility] Culture, urine Bacteria identified Cx Nom (U) Serratia marcescens [facility] Work Phone: Vital Signs Date Time Vital Sign Value Performing Clinician Facility 08-18-2025 11:41-0400 Body height 170.[address] Jolie Sheehan MD Work Phone: [facility] 08-18-2025 11:41-0400 Body mass index (BMI) [Ratio] 20.5 kg/m2 Dr. Jolie Sheehan MD Work Phone: [facility] 08-18-2025 11:41-0400 Body temperature 98.6 [degF] Dr. Jolie Sheehan MD Work Phone: [facility] 08-18-2025 11:41-0400 Body weight 59.[address] Jolie Sheehan MD Work Phone: [facility] 08-18-2025 11:41-0400 Diastolic blood pressure 88 mm[Hg] Dr. Jolie Sheehan MD Work Phone: [facility] 08-18-2025 11:41-0400 Heart rate 84 /min Dr. Jolie Sheehan MD Work Phone: [facility] 08-18-2025 11:41-0400 Respiratory rate 16 /min Dr. Jolie Sheehan MD Work Phone: [facility] 08-18-2025 11:41-0400 SaO2% (BldA) [Mass fraction] 98 % Dr. Jolie Sheehan MD Work Phone: [facility] 08-18-2025 11:41-0400 Systolic blood pressure 134 mm[Hg] Dr. Jolie Sheehan MD Work Phone: [facility] 10-16-2023 13:06-0500 Body height 170.[address] Jolie Sheehan Work Phone: [facility] 10-16-2023 13:06-0500 Body mass index (BMI) [Ratio] 19.8 kg/m2 Dr. Jolie Sheehan Work Phone: [facility] 10-16-2023 13:06-0500 Body temperature 97.6 [degF] Dr. Jolie Sheehan Work Phone: [facility] 10-16-2023 13:06-0500 Body weight 57.[address] Jolie Sheehan Work Phone: [facility] 10-16-2023 13:06-0500 Diastolic blood pressure 82 mm[Hg] Dr. Jolie Sheehan Work Phone: [facility] 10-16-2023 13:06-0500 Heart rate 98 /min Dr. Jolie Sheehan Work Phone: [facility] 10-16-2023 13:06-0500 Respiratory rate 16 /min Dr. Jolie Sheehan Work Phone: [facility] 10-16-2023 13:06-0500 SaO2% (BldA) [Mass fraction] 98 % Dr. Jolie Sheehan Work Phone: [facility] 10-16-2023 13:06-0500 Systolic blood pressure 137 mm[Hg] Dr. Jolie Sheehan Work Phone: [facility] 08-15-2023 11:08-0400 Body mass index (BMI) [Ratio] 20.2 kg/m2 Dr. Jolie Sheehan Work Phone: [facility] 08-15-2023 11:08-0400 Body temperature 98.1 [degF] Dr. Jolie Sheehan Work Phone: [facility] 08-15-2023 11:08-0400 Body weight 58.[address] Jolie Sheehan Work Phone: [facility] 08-15-2023 11:08-0400 Diastolic blood pressure 80 mm[Hg] Dr. Jolie Sheehan Work Phone: [facility] 08-15-2023 11:08-0400 Heart rate 89 /min Dr. Jolie Sheehan Work Phone: [facility] 08-15-2023 11:08-0400 Respiratory rate 16 /min Dr. Jolie Sheehan Work Phone: [facility] 08-15-2023 11:08-0400 SaO2% (BldA) [Mass fraction] 93 % Dr. Jolie Sheehan Work Phone: [facility] 08-15-2023 11:08-0400 Systolic blood pressure 130 mm[Hg] Dr. Jolie Sheehan Work Phone: [facility] 05-13-2023 11:03-0400 Body height 170.18 cm No Primary Care Physician [facility] 05-13-2023 11:02-0400 Body mass index (BMI) [Ratio] 19.8 kg/m2 No Primary Care Physician [facility] 05-13-2023 11:02-0400 Body weight 57.32 kg No Primary Care Physician [facility] 05-13-2023 11:02-0400 Diastolic blood pressure 89 mm[Hg] No Primary Care Physician [facility] 05-13-2023 11:02-0400 Systolic blood pressure 138 mm[Hg] No Primary Care Physician [facility] 05-02-2023 13:38-0400 Body height 170.18 cm No Primary Care Physician [facility] 05-02-2023 13:38-0400 Body mass index (BMI) [Ratio] 20.2 kg/m2 No Primary Care Physician [facility] 05-02-2023 13:38-0400 Body temperature 97.9 [degF] No Primary Care Physician [facility] 05-02-2023 13:38-0400 Body weight 58.57 kg No Primary Care Physician [facility] 05-02-2023 13:38-0400 Diastolic blood pressure 94 mm[Hg] No Primary Care Physician [facility] 05-02-2023 13:38-0400 Heart rate 88 /min No Primary Care Physician [facility] 05-02-2023 13:38-0400 Respiratory rate 16 /min No Primary Care Physician [facility] 05-02-2023 13:38-0400 SaO2% (BldA) [Mass fraction] 94 % No Primary Care Physician [facility] 05-02-2023 13:38-0400 Systolic blood pressure 154 mm[Hg] No Primary Care Physician [facility] 10-12-2022 16:00-0500 Diastolic blood pressure 98 mm[Hg] Dr. Guzman Alcantara Work Phone: [facility] Work Phone: 10-12-2022 16:00-0500 Systolic blood pressure 148 mm[Hg] Dr. Guzman Alcantara Work Phone: [facility] Work Phone: 10-12-2022 15:35-0500 Body height 167.[address] Guzman Alcantara Work Phone: [facility] Work Phone: 10-12-2022 15:35-0500 Body temperature 96.6 [degF] Dr. Guzman Alcantara Work Phone: [facility] Work Phone: 10-12-2022 15:35-0500 Heart rate 108 /min Dr. Guzman Alcantara Work Phone: [facility] Work Phone: 10-12-2022 15:35-0500 SaO2% (BldA) [Mass fraction] 96 % Dr. Guzman Alcantara Work Phone: [facility] Work Phone: 09-12-2022 13:56-0400 Body height 167.[address] Guzman Alcantara Work Phone: [facility] Work Phone: 09-12-2022 13:51-0400 Body mass index (BMI) [Ratio] 20.8 kg/m2 Dr. Guzman Alcantara Work Phone: [facility] Work Phone: 09-12-2022 13:51-0400 Body weight 58.[address] Guzman Alcantara Work Phone: [facility] Work Phone: 09-12-2022 13:51-0400 Diastolic blood pressure 84 mm[Hg] Dr. Guzman Alcantara Work Phone: [facility] Work Phone: 09-12-2022 13:51-0400 Systolic blood pressure 132 mm[Hg] Dr. Guzman Alcantara Work Phone: [facility] Work Phone: 08-16-2022 10:07-0400 Body mass index (BMI) [Ratio] 20.7 kg/m2 Dr. Guzman Alcantraa Work Phone: [facility] Work Phone: 08-16-2022 10:07-0400 Body temperature 97 [degF] Dr. Guzman Alcantara Work Phone: [facility] Work Phone: 08-16-2022 10:07-0400 Body weight 58.[address] Guzman Alcantara Work Phone: [facility] Work Phone: 08-16-2022 10:07-0400 Diastolic blood pressure 87 mm[Hg] Dr. Guzman Alcantara Work Phone: [facility] Work Phone: 08-16-2022 10:07-0400 Heart rate 88 /min Dr. Guzman Alcantara Work Phone: [facility] Work Phone: 08-16-2022 10:07-0400 Respiratory rate 16 /min Dr. Guzman Alcantara Work Phone: [facility] Work Phone: 08-16-2022 10:07-0400 SaO2% (BldA) [Mass fraction] 95 % Dr. Guzman Alcantara Work Phone: [facility] Work Phone: 08-16-2022 10:07-0400 Systolic blood pressure 147 mm[Hg] Dr. Guzman Alcantara Work Phone: [facility] Work Phone: 05-28-2022 19:31-0400 Diastolic blood pressure 82 mm[Hg] [facility] Work Phone: 05-28-2022 19:31-0400 Heart rate 88 /min [facility] Work Phone: 05-28-2022 19:31-0400 Respiratory rate 15 /min [facility] Work Phone: 05-28-2022 19:31-0400 SaO2% (BldA) [Mass fraction] 98 % [facility] Work Phone: 05-28-2022 19:31-0400 Systolic blood pressure 133 mm[Hg] [facility] Work Phone: 05-28-2022 15:52-0400 Body height 167.64 cm [facility] Work Phone: 05-28-2022 15:52-0400 Body mass index (BMI) [Ratio] 21.2 kg/m2 [facility] Work Phone: 05-28-2022 15:52-0400 Body temperature 97 [degF] [facility] Work Phone: 05-28-2022 15:52-0400 Body weight 59.7 kg [facility] Work Phone: 05-28-2022 14:28-0400 Body temperature 96.69 [degF] Delmy Callie GYNECOLOGY TEACHER.STREET COMMISSIONER Work Phone: [facility] 05-28-2022 14:28-0400 Body weight 59.51 kg Delmy Callie GYNECOLOGY TEACHER.STREET COMMISSIONER Work Phone: [facility] 05-28-2022 14:28-0400 Diastolic blood pressure 88 mm[Hg] Delmy Callie GYNECOLOGY TEACHER.STREET COMMISSIONER Work Phone: [facility] 05-28-2022 14:28-0400 Heart rate 95 /min Delmy Callie GYNECOLOGY TEACHER.STREET COMMISSIONER Work Phone: [facility] 05-28-2022 14:28-0400 Respiratory rate 20 /min Delmy Callie GYNECOLOGY TEACHER.STREET COMMISSIONER Work Phone: [facility] 05-28-2022 14:28-0400 SaO2% (BldA) [Mass fraction] 98 % Delmy Callie GYNECOLOGY TEACHER.STREET COMMISSIONER Work Phone: [facility] 05-28-2022 14:28-0400 Systolic blood pressure 130 mm[Hg] Delmy Ledesma STREET COMMISSIONER Work Phone: [facility] Encounters Encounter Date Encounter Type Care Provider Facility Start: 10-22-2025 ambulatory Vazquez Marjorie carlosy:[facility] Start: 08-23-2025 End: 08-23-2025 ambulatory oJlie Sheehan Facility:[facility] Start: 08-18-2025 End: 08-18-[address] Jolie Sheehan MD -[facility] Work Phone: Start: 08-18-2025 End: 08-18-[address] Jolie Sheehan MD Work Phone: -[facility] Start: 05-11-2025 Non-patient / Non-visit Dr. Angela sequeira MD -[facility] Work Phone: Start: 11-18-2024 End: 11-18-2024 ambulatory Jolie Sheehan Facility:[facility] Start: 11-18-2024 End: 11-18-2024 ambulatory Joaquin Loyola PA Facility:[facility] Start: 10-29-2024 End: 10-29-2024 ambulatory Martha Sumter [employer]AND USE PL[employer]NER Facility:[facility] Start: 10-21-2024 Encounter for gynecological examination (general) (routine) without abnormal findings Martha Sumter LAND USE PLANNER [facility] Start: 10-21-2024 End: 10-21-2024 ambulatory Martha Sumter LAND USE PLANNER Facility[facility] Start: 10-28-2023 End: 10-28-[address] Jolie Sheehan Work Phone: [facility] Work Phone: Start: 10-28-2023 End: 10-28-[address] Jolie Sheehan Work Phone: [facility] Work Phone: Start: 10-16-2023 End: 10-16-[address] Jolie Sheehan Work Phone: [facility] Work Phone: Start: 08-15-2023 End: 08-15-2023 Patient encounter procedure Dr. Jolie Sheehan Work Phone: [facility] Work Phone: Start: 05-29-2023 End: 05-29-2023 ambulatory No Primary Care Physician [facility] Work Phone: Start: 05-29-2023 End: 05-29-2023 Patient encounter procedure No Primary Care Physician [facility], [facility] Work Phone: Start: 05-19-2023 Non-patient / Non-visit No Amy moon Care Physician [facility] Start: 05-17-2023 End: 05-17-2023 ambulatory No Primary Care Physician [facility] Work Phone: Start: 05-17-2023 End: 05-17-2023 Patient encounter procedure No Primary Care Physician [facility]Cardiov[facility] Work Phone: Start: 05-17-2023 Non-patient / Non-visit No Amy moon Care Physician [facility] Start: 05-13-2023 End: 05-13-2023 Patient encounter procedure No Primary Care Physician [facility] Work Phone: Start: 05-02-2023 End: 05-02-2023 ambulatory No Primary Care Physician [facility] Work Phone: Start: 05-02-2023 End: 05-02-2023 Patient encounter procedure No Primary Care Physician [facility]-Laboratory Start: 05-02-2023 End: 05-02-2023 Patient encounter procedure No Primary Care Physician [facility] Start: 10-12-2022 End: 10-12-[address] Guzman Alcantara Work Phone: [facility] Work Phone: Start: 10-12-2022 End: 10-12-[address] Guzman Alcantara Work Phone: [facility] Internal [facility] Start: 10-01-2022 End: 10-01-[address] Guzman Alcantara Work Phone: [facility] Work Phone: Start: 10-01-2022 End: 10-01-[address] Guzman Alcantara Work Phone: [facility]Out[facility] Start: 09-12-2022 End: 09-12-[address] Guzman Alcantara Work Phone: [facility] Start: 08-16-2022 End: 08-16-[address] Guzman Alcantara Work Phone: [facility] Start: 05-28-2022 End: 05-28-2022 Emergency department patient visit [facility] Start: 05-28-2022 End: 05-28-2022 Patient encounter procedure Delmy Ledesma APRN.STREET COMMISSIONER Work Phone: [facility] Comment on above: Fatigue, unspecified type (Primary Dx); Acute cough; Burning chest pain Procedures Date Procedure Procedure Detail Performing Clinician Start: 10-28-2023 Screening mammography Navi Sheehan Work Phone: Start: 05-29-2023 Pelvic echography No Pr imary Care Physician Start: 05-29-2023 Transvaginal echography No Primary Care Physician Start: 10-01-2022 Screening mammography Navi Alcantara Work Phone: Start: 05-28-2022 Plain chest X-ray Start: 09-28-2021 Mammography Delmy Ledesma APRN.STREET COMMISSIONER Work Phone: Start: 04-14-2012 Colonoscopy Delmy Ledesma APRN.STREET COMMISSIONER Work Phone: Urine culture Dr. Guzman higginbotham Work Phone: Plan of Treatment Date Care Activity Detail Author Start: 11-06-2029 Urine microalbumin profile DTAP,TDAP,TD (3 - Td or Tdap) [facility] Start: 08-18-2025 Thyroid stimulating hormone measurement [facility] Start: 08-18-2025 Vitamin B12 measurement [facility] Start: 08-18-2025 Vitamin D, 25-hydrox y measurement [facility] Start: 08-11-2024 LIPID SCREEN LIPID SCREEN [facility] Start: 10-28-2023 Ambulatory ECG [facility] Start: 10-16-2023 Evaluation of diagno stic study results [facility] Start: 09-28-2022 Mammography MAMMOGRAM [facility] Start: 09-12-2022 Patient referral [facility] Work Phone: Start: 08-11-2022 DIABETES SCREEN DIABETES SCREEN [facility] Start: 07-12-2022 Influenza vaccination INFLUENZA (#1) [facility] Start: 05-28-2022 [facility] Work Phone: Start: 05-28-2022 End: 06-11-2022 Influenza virus A and B RNA and SARS-CoV-2 (COVID-19) N gene panel - Respiratory specimen by CALEB with probe detection [facility] Work Phone: Comment on above: Expected: 05/28/2022 , Expires: 06/11/2022 Start: 04-14-2022 Colonoscopy COLONOSCOPY [facility] Start: 04-14-2022 COLORECTAL CANCER SCREENING COLORECTAL CANCER SCREENING [facility] Start: 02-17-2022 COVID-19 VACCINE (4 - Booster for Pfizer series) COVID-19 VACCINE (4 - Booster for Pfizer series) [facility] Start: 11-11-2021 ADVANCE DIRECTIVE DISCUSSION ADVANCE DIRECTIVE DISCUSSION [facility] Start: 2020 PNEUMOCOCCAL: 65+ (1 - PCV) PNEUMOCOCCAL: 65+ (1 - PCV) [facility] Start: 2005 SHINGRIX VACCINE (1 of 2) SHINGRIX VACCINE (1 of 2) [facility] Start: 2000 COLOGUARD (FIT-DNA) COLOGUARD (FIT-D NA) [facility] Start: [address] COLONOGRAPHY [facility] Start: 2000 FECAL OCCULT BLOOD FECAL OCCULT BLOO D [facility] Start: 2000 SIGMOIDOSCOPY SIGMOIDOSCOPY Lary zamudio [facility] Start: 1973 HEPATITIS C SCREENING HEPATITIS C SC TAMIKA [facility] Start: 1967 Adult depression screening assessment DEPRESSION SCREENING [facility] CBC W Auto Different ial panel - Blood [facility] Comprehensive metabo lic 1999 panel - Serum or Plasma [facility] Lipid 1996 panel - S cammie or Plasma [facility] Magnesium measurement [facility] Patient Education ED Chest Pain, Uncertain Cause [facility] Work Phone: Patient referral [facility] Work Phone: [facility] Pelvis transvaginal [facility] Immunizations Immunization Date Immunization Notes Care Provider Fa cility 08-15-2023 influenza, injectabl e, quadrivalent, preservative free Dr. Jolie Sheehan Work Phone: [facility] 02-07-2021 Covid (Pfizer) [facility] 01-17-2021 Covid (Pfizer) [facility] 11-06-2019 tetanus and diphther ia toxoids, adsorbed, preservative free, for adult use (5 Lf of tetanus toxoid and 2 Lf of diphtheria toxoid) Delmy Ledesma APRN.STREET COMMISSIONER Work Phone: [facility] 02-12-2009 tetanus toxoid, redu kayla diphtheria toxoid, and acellular pertussis vaccine, adsorbed Delmy Ledesma GYNECOLOGY TEACHER.STREET COMMISSIONER Work Phone: [facility] Work Phone: Payers Date Payer Category Payer Self-pay [id number] 2024 Medicare [id number] 2024 Unknown [id number] 2021 Unknown RICH VILLANUEVA ME DICARE SUPPLEMENT [id number] 2021-Present [phone] [address] [place] [address] Indemnity [id number] 2020 Medicare MEDICARE MEDICAR E A AND B [id number] 2020-Present [phone] [place] [address] Medicare [id number] 2011 Private Health Insurance [id number] Unknown [id number] Unknown [id number] Unknown [id number] Unknown [id number] Unknown [id number] Unknown [id number] Unknown [id number] Social History Date Type Detail Facility Start: 05-28-2022 End: 10-16-2023 Tobacco smoking status NHIS Unknown if ever smoked [facility] Start: 01-05-2020 Occasional [place] [facility] Start: 01-05-2020 None [place] [facility] Start: 01-05-2020 Spouse/ Significant Oth er [facility] Start: 01-06-2020 Non-smoker [facility] Start: 1955 Sex Assigned At Female [facility] Start: 10-16-2023 Tobacco smoking status NHIS Never smoked tobacco [facility] Start: 05-28-2022 Alcohol intake Current drinke r of alcohol (finding) [facility] Start: 02-01-2016 History SDOH Alcohol Comment Occasionally wine [facility] Start: 1955 Sex Assigned At Not on file [facility] Start: 05-18-2022 End: 05-28-2022 Exposure to SARS-CoV-2 (event) Not sure [facility] Sex Female [facility] Mental Status Date Assessment Result Facility 05-28-2022 Cognitive function Voice/Name [facility] Work Phone: Clinical Notes 10-31-2018 to 08-18-2025 Delmy Ledesma APRN.[facility] - 05/28/2022 3:23 PM EDT Note Date & Type Note Facility 08-18-2025 Progress note [facility] 05-28-2022 Influenza virus A and B RNA and SARS-CoV-2 (COVID-19) N gene panel CALEB+probe (Resp) COVID 19 RESULT: SARS-CoV-2 (Agent of COVID-19) Not Detected by RT-PCR or equivalent method. juana [id number]_[employer] (MALDONADO)_EUA This test was developed and its performance characteristics determined by [facility]'s [facility] [place]. This test has been authorized by FDA under an Emergency Use Authorization (EUA). This test has been validated in accordance with the FDA's Guidance Document Policy for Diagnostics Testing in Laboratories Certified to Perform High Complexity Testing under CLIA prior to Emergency use Authorization for Coronavirus Disease 2019 during the Public Health Emergency issued on January 09, 2020. Test performed by [facility], [facility] [place], [address] [place] [address]. INFLUENZA A PCR: Negative for Influenza A by RT-PCR INFLUENZA B PCR: Negative for Influenza B by RT-PCR [facility] Comment on above: Performed By: #### 9 [id number] #### [facility] CLIA [id number] [address] [place], [place] [address] [address] [place] 05-28-2022 Note HNO ID: [id number] Author: Delmy Ledesma APRN.STREET COMMISSIONER Service: ? Author Type: Nurse Practitioner Type: Progress Notes Filed: 05/28/2022 3:45 PM Note Text: Subjective The history is provided by the patient. No language therapist was used. SAMANTHA Delcid is a 66 year old female who presents today for CC of chest burning sensation, post nasal drainage, and fatigue and occasional cough. She states that symptoms started on Saturday evening. She states she feels winded on exertion. She has not used any medications or treatment. No h/o of heart abnormality. H/o of acid reflus, not on any medicaitons. She denies any nasal congestion, runny nose, nausea, vomiting, diarrhea, body aches, chills, or fever. BP 130/88 Pulse 95 Temp (!) 35.9 ?C (96.7 ?F) Resp 20 Wt 59.5 kg (131 lb 3.2 oz) LMP 07/08/2006 SpO2 98% BMI 21.18 kg/m? Social History Tobacco Use - Smoking status: Never Smoker - Smokeless tobacco: Never Used Substance Use Topics - Alcohol use: Yes Comment: Occasionally wine - Drug use: No PAST MEDICAL HISTORY Diagnosis Date - Internal hemorrhoids - Internal hemorrhoids without mention of complication - Osteopenia I have confirmed and edited as necessary, the [facility] Review of Systems Constitutional: Negative for chills and fever. HENT: Negative for congestion, ear pain, sinus pain and sore throat. Respiratory: Negative for cough, sputum production, shortness of breath and wheezing. Cardiovascular: Negative for chest pain. Musculoskeletal: Negative for myalgias. Neurological: Negative for headaches. Objective Physical Exam Vitals and nursing note reviewed. HENT: Head: Normocephalic and atraumatic. Right Ear: Tympanic membrane, ear canal and external ear normal. Left Ear: Tympanic membrane, ear canal and external ear normal. Mouth/Throat: Pharynx: Uvula midline. Cardiovascular: Rate and Rhythm: Normal rate and regular rhythm. Pulses: Normal pulses. Heart sounds: Normal heart sounds. Pulmonary: Breath sounds: Normal breath sounds. Lymphadenopathy: Head: Right side of head: No submental, submandibular or tonsillar adenopathy. Left side of head: No submental, submandibular or tonsillar adenopathy. Cervical: No cervical adenopathy. Skin: General: Skin is warm and dry. Neurological: Mental Status: She is alert. Psychiatric: Mood and Affect: Affect normal. ASSESSMENT/PLAN: 1. Fatigue, unspecified type - ICD9: 780.79, ICD10: R53.83 (primary diagnosis) - COVID WITH FLUA+B, ROUTINE 2. Acute cough - ICD9: 786.2, ICD10: R05.1 3. Burning chest pain - ICD9: 786.59, ICD10: R07.89 Differential dx: Covid, GERD, heart Advise patient limited cardiac work up in [facility], did not want to go to ED, although advised to do so after visit. Will do covid test today. - COVID WITH FLUA+B, ROUTINE Diagnosis and treatment plan were discussed and questions were answered to the patient's satisfaction. Pt acknowledged understanding of concepts and follow up plan. Specific signs and symptoms that would indicate the need for higher level of care were discussed in detail warranting prompt ER evaluation. Demly Ledesma APRN.[facility] 05-28-2022 History of Present illness Narrative Subjective The history is provided by the patient. No language therapist was used. SAMANTHA Delcid is a 66 year old female who presents today for CC of chest burning sensation, post nasal drainage, and fatigue and occasional cough. She states that symptoms started on Saturday evening. She states she feels winded on exertion. She has not used any medications or treatment. No h/o of heart abnormality. H/o of acid reflus, not on any medicaitons. She denies any nasal congestion, runny nose, nausea, vomiting, diarrhea, body aches, chills, or fever. BP 130/88 Pulse 95 Temp (!) 35.9 C (96.7 F) Resp 20 Wt 59.5 kg (131 lb 3.2 oz) LMP 07/08/2006 SpO2 98% BMI 21.18 kg/m Social History Tobacco Use Smoking status: Never Smoker Smokeless tobacco: Never Used Substance Use Topics Alcohol use: Yes Comment: Occasionally wine Drug use: No PAST MEDICAL HISTORY Diagnosis Date Internal hemorrhoids Internal hemorrhoids without mention of complication Osteopenia I have confirmed and edited as necessary, the [facility] Review of Systems Constitutional: Negative for chills and fever. HENT: Negative for congestion, ear pain, sinus pain and sore throat. Respiratory: Negative for cough, sputum production, shortness of breath and wheezing. Cardiovascular: Negative for chest pain. Musculoskeletal: Negative for myalgias. Neurological: Negative for headaches. Objective Physical Exam Vitals and nursing note reviewed. HENT: Head: Normocephalic and atraumatic. Right Ear: Tympanic membrane, ear canal and external ear normal. Left Ear: Tympanic membrane, ear canal and external ear normal. Mouth/Throat: Pharynx: Uvula midline. Cardiovascular: Rate and Rhythm: Normal rate and regular rhythm. Pulses: Normal pulses. Heart sounds: Normal heart sounds. Pulmonary: Breath sounds: Normal breath sounds. Lymphadenopathy: Head: Right side of head: No submental, submandibular or tonsillar adenopathy. Left side of head: No submental, submandibular or tonsillar adenopathy. Cervical: No cervical adenopathy. Skin: General: Skin is warm and dry. Neurological: Mental Status: She is alert. Psychiatric: Mood and Affect: Affect normal. ASSESSMENT/PLAN: 1. Fatigue, unspecified type - ICD9: 780.79, ICD10: R53.83 (primary diagnosis) - COVID WITH FLUA+B, ROUTINE 2. Acute cough - ICD9: 786.2, ICD10: R05.1 3. Burning chest pain - ICD9: 786.59, ICD10: R07.89 Differential dx: Covid, GERD, heart Advise patient limited cardiac work up in [facility], did not want to go to ED, although advised to do so after visit. Will do covid test today. - COVID WITH FLUA+B, ROUTINE Diagnosis and treatment plan were discussed and questions were answered to the patient's satisfaction. Pt acknowledged understanding of concepts and follow up plan. Specific signs and symptoms that would indicate the need for higher level of care were discussed in detail warranting prompt ER evaluation. Delmy Ledesma APRN.GRACY documented in this encounter [facility] 10-31-2018 History of Past i llness Narrative Problem Noted Date Resolved Date Internal hemorrhoids 10/31/2018 documented as of this encounter (statuses as of 05/28/2022) [facility]No assessment information [facility] Work Phone: evaluation note* Diagnosis Fatigue, unspecified type- Primary Acute cough Burning chest pain Other chest pain documented in this encounter [facility] note* Diagnosis Onset Date Resolution Status Elevated BP without diagnosis of hypertension acute Heart palpitations acute Osteopenia acute GERD (gastroesophageal reflux disease) chronic Encounter to establish care noneactive Atrophic vaginitis acute Dyspareunia acute Osteopenia acute Encounter for routine gynecological examination noneactive [facility] Work Phone: evaluation note* Diagnosis Onset Date Resolution Status Elevated BP without diagnosis of hypertension acute Heart palpitations acute Osteopenia acute GERD (gastroesophageal reflux disease) chronic Encounter to establish care noneactive Atrophic vaginitis acute Dyspareunia acute Osteopenia acute Encounter for routine gynecological examination noneactive Elevated BP without diagnosis of hypertension acute Dysuria noneactive [facility] Work Phone: evaluation note* Diagnosis Onset Date Resolution Status GERD (gastroesophageal reflux disease) chronic [facility] Work Phone: evaluugwuw note* Diagnosis Onset Date Resolution Status GERD (gastroesophageal reflux disease) chronic Atrophic vaginitis acute Dyspareunia acute Postmenopausal bleeding acut e [facility] Work Phone: Evaluation note* Diagnosis Onset Date Resolution Status GERD (gastroesophageal reflux disease) chronic Hypertension chronic Heart palpitations acute Tachycardia acute [facility] Work Phone: Evaluation note* Diagnosis Onset Date Resolution Status Admit Date Colon cancer screening acute Oc tober 2024 11:30am Osteopenia acute August 18, 2 025 11:30am GERD (gastroesophageal reflu x disease) chronic August 18 11:30am Hypertension chronic August 18, 2025 11:30am [facility] Work Phone: Hospital Discharge instructions Additional Instructions Your test, EKG and chest x-ray today were all normal. You can use [id number] Tums and Prilosec for the reflux. I would use 1 Prilosec a day for the next week and then use it as needed. Follow-up with your primary care physician discussed with them possibly an outpatient stress test. But today there is no signs of this being heart related.[facility] Work Phone: Hospital Discharge instructionsAmbulatory Orders* General Surgery Location: None Selected [facility] Work Phone: Progress note Author Jolie Sheehan [facility] Note Date/Time August 18, 2025 12 :50pm [facility] [address] [place] [address] OFFICE VISIT Date of Service: 08/18/25 MR#: [id number] Acct: [id number] Name: DIDIER DELCID Rep #: [id number] : 1955 Provider: Dr. 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: No Accompanied by: Self Is patient in pain?: No Allergies Penicillins Allergy (Mild, Verified 08/18/25 11:35) rash Medications ?Medication ?Instructions ?Recorded ?Confirmed ?Type calcium 600 mg (as 1 cap PO DAILY supplement 08/18/25 History carbonate)-vitamin D3 10 mcg (400 unit) capsule (Calcium with Vitamin D3) multivitamin 1 tab PO QDAY supplement 08/18/25 History biotin 800 mcg tablet 800 mcg PO DAILY 05/02/23 History lutein 20 mg capsule See Rx Instructions PO DAILY 10/16/23 08/18/25 History estradiol 0.01% (0.1 mg/gram) See Rx Instructions vagi nal 2XW 10/21/24 08/18/25 History vaginal cream latanoprostene bunod 0.024 % eye 1 drp ophthalmic (eye ) QDAY 08/18/25 08/18/25 History drops (Vyzulta) Have you fallen in the past year?: No [facility] Medical History Contact with and (suspected) exposure to other viral communicable diseases Elevated BP without diagnosis of hypertension Surgical History S/P laser cataract surgery H/O: Family History Brother Bladder cancer Mother Uterine cancer Father Heart disease Myocardial infarction Social History Smoking Status: Never smoker alcohol intake: current details: 3 times per week (wine) substance use type: does not use caffeine: Yes what type of physical activity do you participate in: none seatbelt use: always do you feel safe at home: Yes 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 69-year-old female with a history of elevated blood pressure but not currently on any specific medication for hypertension. She takes several supplements including biotin, calcium with vitamin D, lutein, multivitamin and latanoprostene eyedrops. Overall feels well. She had her last colonoscopy in 2011. She wonders about doing another 1 and I would recommend she do 1 more at this point. She believes it may have been Dr. Candelaria but it was at the [facility]. Will try and obtain a copy of that and will refer her to [place] [facility]. Review of systems per chart. Patient denies chest pain, chest tightness, shortness of breath, wheeze cough, congestion. No change in appetite. Bowel movements are typically a couple per day, after meals. No blood in the stool orblack stool. No specific new urinary symptoms. She did have some symptoms of uncomfortable feeling with urination, and did see urology locally. They had suggested medication which she declined. Loving to have been related to some of the things in her diet that she was eating. She has made some dietary amendments and that has helped including reducing the amount of acidic foods, and coffee. Physical exam. Vital signs on chart. Bilateral intraocular lens replacements. PERRLA. Sclera are clear. TMs are unremarkable with normal light reflexes. Canals are unremarkable. Posterior pharynx is unremarkable. Good dentition. No cervical or supraclavicular lymph nodes enlarged or tender. No clear thyromegaly. No thyroid nodules readily palpable. Lungs are without wheeze, rhonchi, rales. No E/A changes are heard. Heart is regular. Not tachycardic. No clear murmur, rub, or gallop is identified. The abdomen is soft. Bowel sounds are present. Nontender nondistended abdomen. No significant leg edema. Cranial nerve examination 2 through 12 are grossly unremarkable nonlateralizing. Deep tendon reflexes are 2/4 and symmetric at the bicep, tricep, Achilles, patella. No ankle clonus. No obvious rashes. No obvious significant skin lesions are identified. ROS Const Constitutional: No body ache, chills, excessive sweating, fatigue, fever(s), frequent falls, headache(s), snoring, weakness or change in appetite Eyes Eyes: No blurry vision, change in vision, eye pain or Light sensitivity ENT ENT: No abnormal hearing, ear or mastoid pain, tinnitus, nasal congestion, headache(s), neck pain or sore throat Resp Respiratory: No cough, shortness of breath, snoring or wheezing Cardio Cardiology: No chest pain at rest, chest pain with exertion, excessive sweating,dyspnea on exertion, lightheadedness, orthopnea or palpitations Gastro GI: No abdominal pain, change in bowel habits, constipation, cramping, diarrhea,nausea/dyspepsia or vomiting Genitourinary-Female: No burning urination, painful urination, urinary incontinence or urinary frequency Musc Musculoskeletal: No abnormal gait, joint pain, back pain, limited range of motion, muscle weakness, neck pain or numbness Skin Skin: No dry skin, redness, lesions, itchy eyes, rash or wounds Neuro Neurology: No abnormal gait, abnormal hearing, weakness, frequent falls, headache(s), memory loss or numbness Psych Psychiatric: No anxiety, No change in appetite, No depression, No memory loss and No Thoughts of harming yourself/Others Endo Endocrine: No cold intolerance, excessive sweating, fatigue, flushing, heat intolerance, increased thirst/drinking or increased hunger Aller/Imm Allergy/Immunologic: No itchy eyes, seasonal allergy symptoms, hives or wheezing Ammon/Lymp Hematologic/Lymphatic: No easy bleeding or easy bruising Coding Level of Care Code Off vis,est,level 3 Diagnoses Gastroesophageal reflux disease, esophagitis presence not specified K21.9 Esophagitis presence: esophagitis presence not specified Osteopenia M85.80 Hypertension I10 Colon cancer screening Z12.11 Time Spent (min) 30 Assessment and Plan Assessment and Plan (1) GERD (gastroesophageal reflux disease): Status: Chronic Qualifiers: Esophagitis presence: esophagitis presence not specified Qualified Code(s): K21.9 - Gastro-esophageal reflux disease without esophagitis (2) Osteopenia: Status: Acute (3) Hypertension: Status: Chronic (4) Colon cancer screening: Status: Acute Orders: Orders Thyroid Stim Hormone (TSH) Today I10 - Essential (primary) hypertension, K21.9 - Gastro-esophageal reflux disease without esophagitis, R00.2 - Palpitations Lipid Profile Today I10 - Essential (primary) hypertension, K21.9 - Gastro- esophageal reflux disease without esophagitis, R00.2 - Palpitations, Z13.220 - Encounter for screening for lipoid disorders Comprehensive Metabolic Profil Today I10 - Essential (primary) hypertension, K21.9 - Gastro-esophageal reflux disease without esophagitis, R00.2 - Palpitations CBC W/Diff, Automated Today I10 - Essential (primary) hypertension, K21.9 - Gastro-esophageal reflux disease without esophagitis, R00.2 - Palpitations Magnesium Today I10 - Essential (primary) hypertension, K21.9 - Gastro- esophageal reflux disease without esophagitis, R00.2 - Palpitations Vitamin D,25 Hydroxy Today E55.9 - Vitamin D deficiency, unspecified, I10 - Essential (primary) hypertension, K21.9 - Gastro-esophageal reflux disease without esophagitis, R00.2 - Palpitations Vitamin B12 Today E53.8 - Deficiency of other specified B group vitamins, I10 -Essential (primary) hypertension, K21.9 - Gastro-esophageal reflux disease without esophagitis, R00.2 - Palpitations Referrals General Surgery Z12.11 - Encounter for screening for malignant neoplasm of colon Plan Details Additional Comments: Patient presents today for yearly follow-up. Overall is doing well. Will referto Dr. Amador for colonoscopy/colon cancer screening. Labs will be obtainedas ordered. Flu shot today. Await lab findings. I would not make any medication specific recommendation for changes to her current regimen. Can continue to follow-up on a yearly basis and as needed. 30-minute total time this visit. Clinical Quality Measures Falls Risk Screening/Assistive Devices Have you fallen in the past year?: No 08/18/25 1250 <Electronically signed by Jolie ayers MD> Date _ Jolie Sheehan MD Cosigner Signature: Date (if applicable) CC: ~ [employer] Work Phone: Chief Complaint and Reason for Visit Chief Complaint chest pressure, burn ing sensation Chief Complaint Establish Care, Need Pt Paperwork Annual ([employer]) SCREENING Reason for Visit Elevated BP without diagnosis of hypertension Heart palpitations Osteopenia GERD (gastroesophageal reflux disease) Encounter to establish care Atrophic vaginitis Dyspareunia Osteopenia Encounter for routine gynecological examination Chief Complaint Establish Care, Need Pt Paperwork Annual ([employer]) SCREENING POSSIBLE BLADDER INFECTION Reason for Visit Elevated BP without diagnosis of hypertension Heart palpitations Osteopenia GERD (gastroesophageal reflux disease) Encounter to establish care Atrophic vaginitis Dyspareunia Osteopenia Encounter for routine gynecological examination Elevated BP without diagnosis of hypertension Dysuria Chief Complaint BP Issues E-ORDER Reason for Visit GERD (gastroesophage al reflux disease) Chief Complaint BP Issues E-ORDER vaginal bleeding HYPERTENSION HYPERTENSION Reason for Visit GERD (gastroesophage al reflux disease) Atrophic vaginitis Dyspareunia Postmenopausal bleeding Chief Complaint BP Issues E-ORDER vaginal bleeding HYPERTENSION HYPERTENSION HYPERTENSION POSTMENOPAUSAL BLEEDING Reason for Visit GERD (gastroesophage al reflux disease) Atrophic vaginitis Dyspareunia Postmenopausal bleeding Chief Complaint 1 Y FU Increased Heart Rate SCREENING; TACHYCARDIA Reason for Visit GERD (gastroesophage al reflux disease) Hypertension Heart palpitations Tachycardia Chief Complaint Admit Date Annual/Physical August 18, 2025 11 :30am Reason for Visit Admit Date Colon cancer screening August 18, 2025 11:30am Osteopenia August 18, 2025 11 :30am GERD (gastroesophageal reflux disease) O ctober 2024 11:30am Hypertension August 18, 2025 11 :30am Family History No Family History Records Found Relationship Condition Age at Onset Recorded Date/T jasmyne brother Malignant neoplasm of urinary bladder Unk nown mother Malignant neoplasm of uterus Unknown father Cardiac disease Unknown Myocardial infarction Unknown Advance Directives No Advanced Directives Records Found Advance Directive Response Recorded Date/ Time Living Will No May 28, 2022 4:06pm Power of Naturopath No May 28 4:06pm Advance Directive Response Recorded Date/ Time Living Will No May 28, 2022 3:06pm Power of Naturopath No May 28 3:06pm Health Concerns Infection Onset Date Last Indicated Resolved Time COVID-19 Rule-Out 05/28/2022 05/28/2022 Summary Purpose Additional Source Comments Goals (unrecognized section and content) Goals may be documented in a n alternate sectionGoals may be documented in an alternate sectionGoals may be documented in an alternate sectionGoals may be documented in an alternate sectionGoals may be documented in an alternate sectionGoals may be documented in an alternate sectionGoals may be documented in an alternate sectionGoals may be documented in an alternate section Source Comments (unrecognize d section and content) In the event this informatio n is protected by the Federal Confidentiality of Alcohol and Drug Abuse Patient Records regulations: The Federal rules restrict any use of the information to criminally investigate or prosecute any alcohol or drug abuse patient.[facility] Reason for Visit (unrecogniz ed section and content) Reason Comments Chest Congestion fatigue, sinus drain age x4 days Care Teams (unrecognized sec tion and content) Overhead Cleaner Relationship Specialty Start Date End Date Guzman Alcantara MD [address] [place] [address] PCP - General Internal Medicine 01/05/19 Team Status: Active Member Role Status Dates Dr. Guzman Alcantara MD Family Provider Active No Primary Care Physician Primary Care Provider Active Team Status: Inactive Member Role Status Dates No Primary Care Physician Primary Care Provider Active Dr. Jolie Sheehan MD Attending Provider Active Team Status: Inactive Member Role Status Dates No Primary Care Physician Primary Care Provider Active Dr. Jolie Sheehan MD Attending Provider, Referring Provider Active Team Status: Active Member Role Status Dates Dr. Guzman Alcantara MD Family Provider Active Dr. Jolie Sheehan MD Primary Care Provider Active Team Status: Inactive Member Role Status Dates No Primary Care Physician Referring Provider Active Dr. Lucila Monterroso MD Attending Provider Active Dr. Jolie Sheehan MD Primary Care Provider Active Team Status: Active Member Role Status Dates Dr. Jolie Sheehan MD Primary Care Pro vider, Referring Provider, Other Provider Active Dr. Katy Bello MD Attending Provider Activ e Team Status: Inactive Member Role Status Dates Dr. Jolie Sheehan MD Primary Care Pro vider, Attending Provider, Referring Provider Active Team Status: Active Member Role Status Dates Dr. Jolie Sheehan MD Primary Care Provider, Referri ng Provider Active Dr. Katy Bello MD Attending Provider Activ e Team Status: Inactive Member Role Status Dates Dr. Jolie Sheehan MD Primary Care Provider Active Dr. Lucila Monterroso MD Attending Provider, Referr ing Provider Active Team Status: Inactive Member Role Status Dates Dr. Jolie Sheehan MD Primary Care Provider, Attendi ng Provider Active Team Status: Active Member Role/Relationship Status Dates Dr. Guzman Alcantara MD Primary care physician Active Dr. Jolie Sheehan MD Primary care physician Active Team Status: Inactive Member Role/Relationship Status Dates Dr. Jolie Sheehan MD Primary care physician Active Start: May 11, 2025 Dr. Angela Gerard MD Attending physician Active Start: May 11, 2025 Team Status: Inactive Member Role/Relationship Status Dates Dr. Jolie Sheehan MD Primary care physician Active Start: August 18, 2025 End: August 18, 2025 Dr. Jolie Sheehan MD Attending physician Active Start: August 18, 2025 End: August 18, 2025 INFORMATION SOURCE (unrecogn ized section and content) DATE CREATED AUTHOR 06/01/2022 [facility] DATE CREATED AUTHOR AUTHOR'S PANFILO ATMARK 09/24/2025 [facility] FOR RECORDS PERTAINING TO PATIENTS WHO ARE OR HAVE BEEN ENROLLED IN A CHEMICAL DEPENDENCY/SUBSTANCEABUSE PROGRAM, SOME INFORMATION MAY BE OMITTED. This clinical summary was aggregated from multiple sources. Caution should be exercised in using it in the provision of clinical care. This summary normalizes information from multiple sources, and as a consequence, information in this document may materially change the coding, format and clinical context of patient data. In addition, data may be omitted in some cases. CLINICAL DECISIONS SHOULD BE BASED ON THE PRIMARY CLINICAL RECORDS. [employer] [facility]. provides no warranty or guarantee of the accuracy or completeness of information in this document.
== END 2025-10-25 23:59 | disposition home or self-care (01) ==
LOC: CT 07:46
PROVIDERS: PCP Internal Medicine; Referring Provider Surgery; Visit Provider Surgery
DX: Z12.11 Encounter for screening for malignant neoplasm of colon (principal)
CPT/HCPCS: 74177; Q9967

== ENCOUNTER → 2025-11-01 | Outpatient (CLI) | payer MEDICARE, BC, SELFPAY ==
--- NOTE | 2025-11-01 12:15 | BI_ITS ---
EXAM: SCRN MAMM (CAD)W/MUMTAZ BILAT DATE: 11/01/2025 CLINICAL HISTORY: F, Age 69 y/o , SCREEN FOR BREAST CANCER TECHNIQUE: Procedure Code: [id number] Modality: MG Procedure: SCRN MAMM (CAD)W/MUMTAZ BILAT COMPARISON: Prior exam(s) dated 10/29/2024, 10/28/2023 and 10/01/2022. FINDINGS: TISSUE DENSITY: The breasts are heterogeneously dense, which may obscure small masses. Bilateral Breast Mammographic Findings: No significant masses, calcifications or other abnormalities are identified. Benign round microcalcifications are seen in both breasts. BI/SCRN MAMM (CAD)W/MUMTAZ BILAT IMPRESSION: Benign screening mammogram. OVERALL FINAL ASSESSMENT BI-RADS 2: BENIGN RECOMMENDATION: Routine annual follow-up in 1 Year Additional Recommendation none A letter with findings and recommendations will be mailed to the patient. Reading Location: [id number]
== END | disposition home or self-care (01) ==
LOC: OPBI 12:15
PROVIDERS: PCP Internal Medicine; Referring Provider Nurse Practitioner Women's Health; Visit Provider Nurse Practitioner Women's Health
DX: Z12.31 Encounter for screening mammogram for malignant neoplasm of breast (principal)
CPT/HCPCS: 77063; 77067